=== PATIENT | female | born 1950 | race Caucasian/White ===

== ENCOUNTER → 2016-03-11 | Outpatient (REF) | payer MEDICARE, MEDICAID ==
[~2016-03-11] MED LIST: /BACL20TA PO; /FENO14TA PO; /OXYB10XLT PO; /PROM25SU; /PROM25SU IM; ACET-654 PO; ACET500C; ACET500C OR; ACET650S3 PO; ACET650S3 PR; ACTI300C PO; ADVI200T PO; ALB2.5NEB INH; ALBU17IN2 INH; AMBI10TA; AMIL25TA PO; ASCO500T PO; ATIV0.5T3 PO; ATIV1TAB7 PO; AUGM875T27 PO; BACL-67 PO; BACL10TA2 OR; BENA25CA PO; BETA0.3I SC; BISA10SU4 PR; BISAC5TA PO; CALC500T49; CALTCHW PO; CALTRATE OR; CALTTAB10 PO; CALTTAB11 PO; CATA0.1T PO; CEFD1CAP8 PO; CEFD300CAP PO; CEFT1INJ3 IM; CEFT2VL IM; CEFT500T PO; CIPR500T89 PO; CLAR5CHW OR; COLA50CA3 PO; CRAN400T3 PO; CRAN425C2 PO; CYMB1CAP PO; CYMB1CAP5 PO; DIPH50CA PO; DOCU8.6T PO; DULC10SU2 PR; DULC10SU9 PR; DULO30CA PO; ESTR1TAB3 PO; ESTRACE; FERR325T OR; FLAG500T PO; FLEEENE4 PR; FLEETS ENEMA PR; FLON0.05; FLON0.054; FLUT1SPR2; FLUTISP; FURO40TA2 PO; GABA-279 PO; GABA600T3 PO; GLIP5TAB15 PO; GLUC2.5T9 PO; IBUP-1114 PO; IBUP200C PO; IPRA2IN INH; KEFL500C7 PO; LASI40TA OR; LEVA500T PO; LEVO750T PO; LORA10TA2 PO; LORA24TA PO; LOSA50TA20 PO; LOVE1INJ SC; MAXA10TA14 PO; MAXA10TA17; MAXA10TA17 SL; MAXA5TAB10 PO; METF-414 PO; METF1000 PO; MIDAMOR OR; MILK2400 PO; MILKSUS OR; MILKSUS PO; MIRA3350 PO; MOM30SS PO; MULTIVIT OR; MULTLIQ7 PO; NEUR300C PO; NYST100024 TOP; OCUVTAB4 PO; OXYB5TA PO; OXYB5TAB OR; OXYC1TAB23 PO; OXYC5TAB2 PO; PERC5TAB6 PO; PERC5TAB8 OR; PHEN1SUP6 PR; PHEN1TAB80 PO; POTA20EL PO; POTA99TA; POTASSIUM OR; PRIL20CA; PRIL20CA OR; PRIL20CA PO; PROM25TA3 PR; PROV90AE INH; PROZ40CA OR; PYRI1TAB PO; REFRESH OU; REFROIN OU; ROCE1INJ4 IM; Robitussin OR; SENN8.6T5 OR; SIME1CAP PO; SIME40TA PO; SIME80TA PO; TRIC145T PO; TUMS500C OR; TYLE325T5 PO; TYLE325T5 PR; TYLE650T30 PO; VICO5TAB; VITA500C24 PO; VITA500T; VITMTA PO; [UNRECOGNIZED DRUG - CODE] TOP; [UNRECOGNIZED DRUG - OTHER] OR; [UNRECOGNIZED DRUG - OTHER] OR; [UNRECOGNIZED DRUG - OTHER] OR; [UNRECOGNIZED DRUG - OTHER] OR
[2016-03-11 10:20] LABS: ALBUMIN 3.3 GM/DL (3.2-5.2); ALBUMIN/GLOBULIN RATIO 0.89 (1.00-1.93); ALKALINE PHOSPHATASE 54 U/L (45-117); ALT/SGPT 18 U/L (12-78); AST/SGOT 11 U/L (15-37); BILIRUBIN,DIRECT < 0.1 MG/DL (0.0-0.2); BILIRUBIN,TOTAL 0.2 MG/DL (0.2-1.0)
== END | disposition home or self-care (01) ==
LOC: SKLAB5 08:37
PROVIDERS: ATTEND Family Medicine
DX: G35 Multiple sclerosis (principal)

== ENCOUNTER → 2016-03-27 | Outpatient (CLI) | payer MEDICARE, MEDICAID ==
[~2016-03-27] MED LIST changes: -PRIL20CA PO; +PRIL20CA9 PO
--- NOTE | 2016-03-27 22:40 | REPUSA ---
CLINICAL HISTORY: Back pain COMPARISON: No relevant comparison is available at the time of interpretation. L-SPINE XRAY, 4 views including obliques: Vertebral bodies: There is decreased height of the superior endplates of L1 and L2 which may represen t acute or nonacute compression deformities. Disc spaces: Mildly decreased height. Alignment: Normal lumbar lordosis without listhesis. Facets: Degenerative arthrosis at L4-5 and L5-S1. IMPRESSION: Loss of height of the L1 and L2 superior endplates which may represent acute or nonacute compression deformities. Consider evaluation with lumbar MRI for further differentiation.
== END | disposition home or self-care (01) ==
LOC: M ED 19:34
PROVIDERS: ATTEND Family Medicine
DX: M51.86 Other intervertebral disc disorders, lumbar region (principal); M51.87 Other intervertebral disc disorders, lumbosacral region

== ENCOUNTER 2016-03-31 09:11 | Outpatient (CLI) | payer MEDICARE, MEDICAID ==
[2016-03-31] MEDS ORDERED: IMMUNE GLOBULIN 10% 5 GM in APPROPRIATE DILUENT 1 EA IV ONE (10:15)
[2016-03-31] MEDS ORDERED: IMMUNE GLOBULIN 10% 10 GM in APPROPRIATE DILUENT 1 EA IV ONE (10:15)
[2016-03-31] MEDS ORDERED: IMMUNE GLOBULIN 10% 20 GM in APPROPRIATE DILUENT 1 EA IV ONE (10:15)
[2016-03-31] MEDS ORDERED: BACLOFEN 10 MG TAB PO ONE (12:00)
== END 2016-03-31 13:40 | disposition home or self-care (01) ==
LOC: M INFU 09:11
PROVIDERS: ATTEND Family Medicine
DX: G35 Multiple sclerosis (principal)
CPT/HCPCS: 96365; 96366; J1568

== ENCOUNTER → 2016-04-08 | Outpatient (REF) | payer MEDICARE, MEDICAID ==
[2016-04-08 07:51] LABS: BASO % 0.7 % (0.0-1.0); EOS # 0.1 K/mm3 (0.0-0.50); EOS % 1.7 % (0.0-3.0); LARGE UNSTAINED CELL # 0.1 K/mm3 (0.0-0.4); LARGE UNSTAINED CELL % 1.1 % (0.0-4.0); LYMPH # 2.6 K/mm3 (1.5-4.5); MEAN CORPUSCULAR HEMOGLOBIN 26.4 pg (27.0-33.0); MEAN CORPUSCULAR HGB CONC 32.6 g/dl (32.0-36.5); MEAN CORPUSCULAR VOLUME 80.9 fl (80.0-96.0); MONO # 0.4 K/mm3 (0.0-0.8); MONO % 5.1 % (0.0-5.0); NEUTROPHILS # 4.3 K/mm3 (1.8-7.7); NEUTROPHILS % 57.4 % (36.0-66.0); PLATELET COUNT, AUTOMATED 261 k/mm3 (150-450); RED CELL DISTRIBUTION WIDTH 13.2 % (11.5-14.5); WHITE BLOOD COUNT 7.5 K/mm3 (4.0-10.0)
[2016-04-08 08:08] LABS: ANION GAP 7 MEQ/L (8-16); BLOOD UREA NITROGEN 18 MG/DL (7-18); CALCIUM LEVEL 8.6 MG/DL (8.8-10.2); CARBON DIOXIDE LEVEL 32 MEQ/L (21-32); CHLORIDE LEVEL 101 MEQ/L (98-107); CREATININE FOR GFR 0.48 MG/DL (0.55-1.02); GLOMERULAR FILTRATION RATE > 60.0 (>45); GLUCOSE, FASTING 211 MG/DL (80-110); POTASSIUM SERUM 4.3 MEQ/L (3.5-5.1); SODIUM LEVEL 140 MEQ/L (136-145)
== END | disposition home or self-care (01) ==
LOC: SKLAB4 08:16
PROVIDERS: ATTEND Family Medicine
DX: G35 Multiple sclerosis (principal); D64.9 Anemia, unspecified; E11.9 Type 2 diabetes mellitus without complications

== ENCOUNTER 2016-05-05 09:36 | Outpatient (CLI) | payer MEDICARE, MEDICAID ==
[~2016-05-05 09:36] MED LIST changes: +IMMUNE GLOBULIN 10% 30 GM in APPROPRIATE DILUENT 1 EA IV ONE; +IMMUNE GLOBULIN 10% 5 GM in APPROPRIATE DILUENT 1 EA IV ONE
[2016-05-05] MEDS ORDERED: BACLOFEN 10 MG TAB PO ONE (12:00)
== END 2016-05-05 13:45 | disposition home or self-care (01) ==
LOC: M INFU 09:36
PROVIDERS: ATTEND Family Medicine
DX: G35 Multiple sclerosis (principal)
CPT/HCPCS: 96365; 96366; J1568

== ENCOUNTER 2016-06-02 10:23 | Inpatient (IN) | payer MEDICARE, MEDICAID ==
[2016-06-02] VITALS (28 sets, daily range): BP systolic 71–226; BP diastolic 41–98
[~2016-06-02] VITALS: Ht 167.6 cm; Wt 76.2 kg
[~2016-06-02 10:23] MED LIST changes: -IPRASOL4 INH; -METF-699 PO; -MORP-38 PO; -RANI15TA PO; -TUMS500C PO
[2016-06-02] MEDS ORDERED: MORP-38 PO (10:50)
[2016-06-02] MEDS ORDERED: RANI15TA PO (11:05)
[2016-06-02] MEDS ORDERED: DULC10SU2 PR (11:12)
[2016-06-02 12:29] LABS: YEAST LIKE CELL URINE AUTO SMALL
[2016-06-02 12:46] LABS: ABG BASE EXCESS 3.1 (-2.0-2.0); ABG HCO3 29.6 MEQ/L (22.0-26.0); ABG PARTIAL PRESSURE CO2 52.9 mmHg (35.0-45.0); ABG PARTIAL PRESSURE O2 81.4 mmHg (75.0-100.0); ABG STANDARD HCO3 27.1 MEQ/L (22.0-26.0); ABG TOTAL CO2 31.2 MEQ/L (23.0-31.0); ABG pH (ARTERIAL) 7.366 UNITS (7.350-7.450)
[2016-06-02] MEDS ORDERED: NS 2,340 ML in APPROPRIATE DILUENT 1 EA IV ONE (13:00)
[2016-06-02] MEDS ORDERED: CEFEPIME HCL 2 GM in D5W MINI-BAG PLUS 50 ML IV ONE (13:00)
[2016-06-02] MEDS ORDERED: ACETAMINOPHEN 650 MG SUPP PR ONE (13:45)
[2016-06-02] MEDS ORDERED: IPRASOL4 INH (14:09)
[2016-06-02] MEDS ORDERED: METF-699 PO (14:09)
[2016-06-02] MEDS ORDERED: TUMS500C PO (14:13)
[2016-06-02 14:17] LABS: INR 1.11
[2016-06-02 14:41] LABS: ALBUMIN 2.9 GM/DL (3.2-5.2); ALBUMIN/GLOBULIN RATIO 0.85 (1.00-1.93); BILIRUBIN,DIRECT 0.3 MG/DL (0.0-0.2); BILIRUBIN,TOTAL 0.5 MG/DL (0.2-1.0); TOTAL PROTEIN 6.3 GM/DL (6.4-8.2)
--- NOTE | 2016-06-02 14:42 | HPEPDOC ---
Medical History and Physical Date of Admission 06/02/16 History and Physical ATTENDING: Dr. Olivo PCP: Cm CC: "I'm sick". Fever and decreased LOC. HPI: 65yoF resident of [facility] with a past medical history significant for MS, neurogenic bladder, chronic incontinence, H/O recurrent UTI. Pt was transported from [facility] with aid reporting she had decreased LOC, fever this AM. CXR had been done this AM. No prior reported history in the chart of respiratory symptoms, DE JESUS, CP, SOB, cough, palpitations, abdominal pain, N/V/D. Pt wears adult diapers and has chronic incontinence. Pt has had indwelling jose in the past. Upon presentation to the hospital the patient was found to have sepsis, AMS, thus the hospitalist team was consulted. PMHx: MS neurogenic bladder chronic incontinence/recurrent UTI HTN NIDDM COPD- O2 dependent 2 LNC chronic pain related to MS HLD seasonal allergies GERD PSHX: tonsillectomy/adenoidectomy BTL hysterectomy cholecystectomy oral surgery SOCHX: Resides in: [facility] Marital Status: Tobacco use: quit 10 years ago ETOH: none Illicit Drugs: Denies Advanced directives: none FH Pt unable to provide. ROS: Pt unable to provide history at this time. PE: GEN: 65yoF, appears stated age. Lethargic but arouses to voice and states that she is "sick". She is oriented to person when calling her name. HEENT: Normocephalic, atraumatic. Pupils are equal, round, and reactive to light. Nose midline. Nasal turbinates without drainage. EACs both patent BL. TMs both visualized and youngblood with good cone of light, no bulging or erythema. No facial asymmetry. Dry mucous membranes. Dentition poor. Neck supple, trachea midline. No lymphadenopathy or thyromegaly appreciated. CHEST: Regular rate and rhythm, +S1, +S2. No JVD noted. LUNGS: Decreased BS but clear bilaterally. No wheezes, rales, or rhonchi. No accessory muscle use. ABD: Round, soft, possible mild distention, no TTP. +Bowel sounds present throughout. No rebound or guarding. No costovertebral angle tenderness. EXT: No lower extremity edema appreciated. B/L foot drop noted. SKIN: warm to touch. No rashes. NEURO: pt is lethargic but arousable. CXR: Cannot exclude right lower lobe atelectasis AXR Fecal stasis and constipation suggested. No evidence for bowel obstruction. Flu screen neg BC x 2 pending UC pending LA 4.5 A&P: 65yoF resident of [facility] with a past medical history significant for MS, neurogenic bladder, chronic incontinence, H/O recurrent UTI. Pt was transported from [facility] with aid reporting she had decreased LOC, fever this AM. CXR had been done this AM. The patient will be admitted to PCU for at least [address] Olivo 's service. Pt is discussed with Dr Morton. Lactic acidosis/Sepsis. Likely urinary source. UC/BC pending. LA 4.5, will repeat. Additional IV fluid bolus 1000ml ordered STAT, IV Cefepime 2gm Q12/IV Vanco. AMS likely secondary to infection. NATTY. S/P IVF bolus in ED. Cont with IVF, recheck labs in AM. Abdominal distention. CT A&P pending. MS. Baclofen/Gabapentinon hold. Chronic urinary incontinence/H/O recurrent UTI. Jose catheter placed. UC/BC pending. HTN. po meds on hold. Monitor BP. NIDDM. SSI. Metformin/Glipizide on hold. COPD. Nebs started. Chronic pain. Pt is on chronic pain meds as outpt (morphine) This is on hold temporarily and will need to be restarted to avoid withdrawal symptoms. HLD. po meds on hold. GERD. PO PPI on hold. DVT prophylaxis. Lovenox The patient is a DNR. 06/02/16 17:38 Addendum The patient went on to develop hypotension after nearly three liters of normal saline. SBP was 65, and patient was less responsive. I obtained informed consent for placement of central line to allow for better fluid and medication management. Dr. Roy placed triple lumen catheter. Patient is currently being transferred to ICU for CVP measurement and most likely levophed. I did discuss the case by phone with both listed healthcare proxies. Patient has sepsis due to urinary source probably related to obstructive uropathy on right. Broad spectrum antibiotics have been started. There is currently no urology coverage at this hospital, but the patient is not stable for transfer. She may benefit from a percutaneous procedure tomorrow. Juve Morton. Vital Signs Item Value Date Time Lactic Acid Level 4.5 MMOL/L *H 06/02/16 1134 Oxygen Delivery Method Nasal Cannula 06/02/16 1041 Oxygen Flow Rate 2 L/min 06/02/16 1041 Vital Signs Label Value Date Time Patient Temperature 103.2 degrees F 06/02/16 1334 Temperature Source Rectal 06/02/16 1334 Patient Temperature 99.4 degrees F 06/02/16 1028 Temperature Source Oral 06/02/16 1028 Pulse 98 06/02/16 1028 Respiratory Rate 20 bpm 06/02/16 1028 Blood Pressure Assessment 165/79 (107) 06/02/16 1028 Location Left Arm Source Automatic Cuff (NIBP) Position Supine Bedside Pulse Oximetry 94 % 06/02/16 1041 Laboratory Data Labs 24H Laboratory Tests 2 06/02/16 11:34: Lactic Acid Level 4.5*H, Urine Amorphous Sediment , Urine Appearance CLOUDYH, Urine Color YELLOW, Urine pH 5.0, Urine Specific [place] 1.012, Urine Protein NEGATIVE, Urine Glucose (UA) 2+H, Urine Ketones NEGATIVE, Urine Urobilinogen 0.2 , Urine Bilirubin NEGATIVE, Urine Leukocyte Esterase 3+H, Urine Bacteria (Auto) 3+H, Urine Blood 1+H, Urine Calcium Carbonate Cryst(Auto) , Urine Calcium Oxalate Cryst (Auto) , Urine Calcium Phosphate Tiny (Auto) , Urine Cellular Casts , Urine Cystine Crystals , Urine Granular Casts (Auto) , Urine Hyaline Casts (Auto) 0, Urine Leucine Crystals , Urine Mucus (Auto) SMALL, Urine Nitrite POSITIVE, Urine Oval Fat Bodies (Auto) , Urine RBC (Auto) 11H, Urine Renal Epithelial Cells , Urine Sperm (Auto) , Urine Squamous Epithelial Cells 1 , Urine Transitional Epithelial Cells , Urine Trichomonas (Auto) , Urine Triple Phosphate Cryst (Auto) , Urine Tyrosine Crystals , Urine Uric Acid Crystals ( Auto) , Urine WBC (Auto) 131H, Urine Waxy Casts (Auto) , Urine Yeast-Like Cells (Auto) SMALLH 06/02/16 12:34: Arterial Blood pH 7.366, Arterial Blood Partial Pressure CO2 52.9H, Arterial Blood Partial Pressure O2 81.4, Arterial Blood Total CO2 31.2H, Arterial Blood HCO3 29.6H, Arterial Blood Base Excess 3.1H, Arterial Blood Oxygen Saturation 96.0, Blood Gas Bicarbonate Standard 27.1H 06/02/16 13:57: Microbiology Microbiology 06/02/16 Blood Culture, Received Pending 06/02/16 Blood Culture, Received Pending 06/02/16 Urine Culture, Received Pending Home Medications Scheduled (Cranberry) 425 Mg Cap 425 MG PO DAILY (Preservision Areds) 1 Tab Tab 1 TAB PO BID Baclofen (Baclofen) 20 Mg Tab 20 MG PO QID Cefdinir (Cefdinir) 300 Mg Cap 300 MG PO BID Clonidine Hydrochloride (Catapres) 0.1 Mg Tab 0.1 MG PO QHS Docusate Sod/Senna (Docusate Sodium/Senna 8.6-50 mg) 1 Tab Tab 2 TAB PO DAILY Duloxetine Hcl (Cymbalta) 30 Mg Cap 30 MG PO BID Fenofibrate (Tricor) 145 Mg Tab 145 MG PO DAILY Fluticasone Propionate (Fluticasone Propionate 0.05%) 120 [place]/16 Gm Naspr 2 SPRAY NA DAILY PER NOSTRIL Gabapentin (Neurontin) 300 Mg Cap 300 MG PO BID Gabapentin (Gabapentin) 100 Mg Cap 500 MG PO ASDIRECTED TAKES AT MIDNIGHT Glipizide (Glipizide ER) 5 Mg Tab 2.5 MG PO DAILY Losartan Potassium (Losartan Potassium) 50 Mg Tab 25 MG PO DAILY Metformin Hydrochloride (Metformin HCl ER) 500 Mg Tab 500 MG PO BID Morphine Sulfate (Morphine Sulfate ER) 15 Mg Tab 15 MG PO BID Omeprazole (Prilosec) 20 Mg Cap 20 MG PO DAILY Oxybutynin Chloride (Oxybutynin Chloride) 5 Mg Tab 5 MG PO DAILY Ranitidine Hcl (Zantac) 150 Mg Tab 1 TAB PO DAILY Scheduled PRN Acetaminophen (Acetaminophen) 650 Mg Sup 650 MG DE Q4H PRN PRN PAIN OR DISCOMFORT Acetaminophen (Acetaminophen) 325 Mg Tab 650 MG PO Q4H PRN PRN PAIN / FEVER Albuterol Sulfate (Proventil Hfa) 167 Puff/6.7 Gm Aers 2 PUFFS INH Q4H PRN PRN SHORTNESS OF BREATH Albuterol/Ipratropium (Ipratropium [place]sa[place]/Albut 0.5-2.5 (3) mg/3Ml) 1 Abraham Abraham 1 ABRAHAM INH PRN SHORTNESS OF BREATH Bisacodyl (Dulcolax) 10 Mg Sup 10 MG DE DAILYPRN PRN PRN CONSTIPATION Calcium Carbonate (Tums) 500 Mg Chw 1,000 MG PO Q4H PRN PRN INDIGESTION Ibuprofen (Ibuprofen) 400 Mg Tab 400 MG PO Q6H PRN PRN PAIN / FEVER Lorazepam (Ativan) 1 Mg Tab 1 MG PO QHS PRN PRN INSOMNIA Milk Of Magnesia (Milk of Magnesia) 1,200 Mg/15 Ml Eleanor 30 ML PO DAILY PRN PRN CONSTIPATION Polyethylene Glycol (Miralax) 1 Pow Pow 17 GM PO DAILY PRN PRN CONSTIPATION Promethazine HCl (Phenergan) 25 Mg Sup 25 MG DE Q4H PRN PRN NAUSEA OR VOMITING Sodium Phosphate/Biphosphate (Fleet Enema 7-19 gm/118Ml) 1 Ann Marie Ann Marie 1 EA DE DAILY PRN PRN CONSTIPATION Allergies Coded Allergies: Penicillins (Verified Allergy, Intermediate, RASH, 10/30/15) Bacitracin (Verified Allergy, Unknown, 08/20/13) Erythromycin (Verified Allergy, Unknown, 06/06/12) Polymyxin B (Verified Allergy, Unknown, 08/20/13) Sulfa Drugs (Verified Allergy, Unknown, 06/06/12) Fany Jo Jun 02, 2016 14:42 JUVE MORTON MD Jun 02, 2016 17:50
[2016-06-02] MEDS ORDERED: NS 1,000 ML IV STA (14:51)
[2016-06-02] MEDS ORDERED: IPRATROPIUM 0.5MG/ALBUTEROL 2.5MG INH SOL UD 3ML (DUONEB)(J7620) NEB PRN (15:00)
[2016-06-02] MEDS ORDERED: DEXTROSE 50% 50 ML SYRINGE IV PRN (15:00)
[2016-06-02] MEDS ORDERED: ACETAMINOPHEN TAB 650MG DOSE (2X325MG) PO PRN (15:00)
[2016-06-02] MEDS ORDERED: GLUCOSE 4 GM CHEW TABLET PO PRN (15:00)
[2016-06-02] MEDS ORDERED: GLUCAGON FOR INJ 1 MG VIAL (J1610) SC PRN (15:00)
--- NOTE | 2016-06-02 15:50 | REP ---
Clinical: Abdominal pain. Findings: There is edematous enlargement of the right kidney with perinephric stranding and hydronephrosis with a 15 mm calculus obstructing the ureteropelvic junction as well as multiple nonobstructing right intrarenal calculi. The right ureter distal to the obstructing calculus is normal in caliber. The left kidney demonstrates chronic cortical scarring and atrophic changes without hydroureteronephrosis or nephrolithiasis. The left ureter is normal. The bladder is collapsed with Robb catheter in place. Lung bases demonstrate right lower lobe atelectasis. Hepatosplenomegaly is noted. The pancreas and bilateral adrenal glands are normal. The patient is status post cholecystectomy. The enteric system is without obvious obstruction or acute inflammatory process. Stranding adjacent to the ascending colon in the right infrahepatic space is nonspecific and may be related to the above mentioned acute obstructive uropathy as the colon itself appears relatively normal. Pelvis demonstrates normal sigmoid colon and Robb catheter in collapsed bladder along with prior hysterectomy. No ascites. No free air. No significant adenopathy. Atherosclerotic changes of the vasculature and degenerative changes the musculoskeletal structures noted. Impression: 1. Moderate acute right-sided obstructive uropathy with a 15 mm calculus obstructing the ureteropelvic junction. Nonobstructing right intrarenal calculi also identified. Left kidney is relatively unremarkable. 2. Right lower lobe atelectasis. 3. Stranding in the right pericolic gutter adjacent to the hepatic flexure is likely secondary to the above acute obstructive uropathy and less likely related to focal acute colitis. Signed by Freddy Lowe MD 06/02/2016 03:42 P
[2016-06-02] MEDS ORDERED: VANCOMYCIN HCL 1,000 MG, VIAL MATE ADAPTER 1 EACH in D5W 250 ML IV ONE (16:00)
[2016-06-02] MEDS ORDERED: NOREPINEPHRINE BITARTRATE 8 MG in D5W 500 ML IV SCH (17:45)
--- NOTE | 2016-06-02 18:01 | REP ---
Clinical: Central line placement. Comparison: 06/02/2016 at 09:14 a.m.. Findings: Right IJ line with tip in the SVC. Right lower lobe atelectasis cannot be excluded. No pneumothorax. Impression: Right IJ line with tip in the SVC. Right lower lobe atelectasis cannot be excluded. Signed by Freddy Lowe MD 06/02/2016 05:53 P
[2016-06-02] MEDS ORDERED: ONDANSETRON 4MG/2ML VIAL (J2405) As Ordered ONE (18:26)
[2016-06-02] MEDS: HumaLOG INSULIN (NovoLOG) PER UNIT SC SCH (18:34)
[2016-06-02] MEDS: NS 1,000 ML IV SCH (18:38)
[2016-06-02] MEDS ORDERED: NOREPINEPHRINE 4 MG/4 ML AMP As Ordered ONE (18:51)
[2016-06-02] MEDS: ONDANSETRON 4MG/2ML VIAL (J2405) IV PRN ×2 (18:55→23:15)
--- NOTE | 2016-06-02 19:16 | RO ---
DATE OF PROCEDURE: 06/02/2016 PREPROCEDURE DIAGNOSIS: Hypotension. POSTPROCEDURE DIAGNOSIS: Hypotension. OPERATIVE PROCEDURE: Right IJ triple lumen central line. SURGEON: Jeannette oRy MD ARTIST'S REPRESENTATIVE: Burton Morton MD SEDATION: None ANESTHETIC: 1% local lidocaine. VENTILATION: The patient was placed on 100% nonrebreather temporarily for the duration of the procedure. ESTIMATED BLOOD LOSS: 10 mL COMPLICATIONS: None. DESCRIPTION OF PROCEDURE: The patient was placed in supine position. Site was cleaned with Chloraprep. The patient was covered in the usual manner sterilely. 1% local lidocaine was drawn. 1% local lidocaine was given with ultrasound guidance locating right internal jugular. Subsequently, needle was inserted with ultrasound guidance. Flush of blood was obtained. Guidewire was placed through the needle and the needle was removed. Site was dilated with a dilator. Prior to dilation, wire position was confirmed again with ultrasound. Subsequently, triple lumen central line was placed with Seldinger technique over a guidewire. The guidewire was removed and cap was placed. All three ports were flushed with normal saline. A triple lumen central line was secured with stitches and clamps. Dressing was placed. X-ray was ordered for confirmation. The patient tolerated the procedure with no complications.
--- NOTE | 2016-06-02 19:40 | PHACANCOPD ---
PHARMACY VANCOMYCIN DOSING Pt Demographics Demographics Patient Age:65 , Weight:78.500 , Gender: female Adjusted Body Weight Date: 06/02/16, Adjusted Body Weight: Kg Events Past 24 Hours Events Past 24 Hours: YES: Change in CrCl, Elevation in WBC, Pending Procedures (interventional radiology), NO: Dialysis, Diuretic Therapy, Fever, Other, Pending Diagnostics Vancomycin Vancomycin indication: sepsis Vancomycin Target Ranges: 15-20 mcg/ml Vancomycin Load Y/N: Yes Load Dose Date Time Vancomycin Load Dose: 2000mg Date: 06/02/16 Time: 1g @ 19:00, 21:00 Vancomycin Dose Date: 06/02/16. Current Vancomycin Dose: [1g IV q12h @21] Intermittent Dosing?: No Labs Labs Item Value Date Time C-Reactive Protein, Quantitative 16.10 MG/DL H 06/02/16 1357 Creatinine 1.14 MG/DL H 06/02/16 0725 White Blood Count 14.8 K/mm3 H 06/02/16 0725 Lactic Acid Level 4.5 MMOL/L *H 06/02/16 1134 Micro Microbiology 06/02/16 Blood Culture, Received Pending 06/02/16 Blood Culture, Received Pending 06/02/16 Urine Culture, Received Pending Creatinine Clearance Date:06/02/16. Creatinine Clearance: [50 ml/min]. Assessment and Plan Maintaining Current Dose?: Yes Reason for dose change: No Dose Change Pharmacist Note Pharmacist Note Date: 06/02/16. Pharmacist note: Pt is an [facility] resident admitted for sepsis, she has been started on cefepime and vancomycin. UTI is the presumed origin of sepsis, past urine cultures notable for E. faecalis ([place] = 1) and E. coli. No Hx of MRSA. Her SCr is currently elevated, baseline ~0.5 mg/dl. Pt was on vancomycin here in 2013 at 1g IV q8h with a SCr of ~0.7. Due to her decompensated state, I have started with a 2g vancomycin load followed by 1g IV q12h. Blood and urine cultures are currently pending. We will monitor renal function and order a trough as necessary. Hernan Blankenship Pharm.D. Jun 02, 2016 19:40
[2016-06-02] MEDS: IPRATROPIUM 0.5MG/ALBUTEROL 2.5MG INH SOL UD 3ML (DUONEB)(J7620) NEB SCH (20:00)
[2016-06-02] MEDS ORDERED: HumaLOG INSULIN (NovoLOG) PER UNIT SC SCH (21:00)
[2016-06-02] MEDS ORDERED: LORazepam 2 MG/ML VIAL (J2060) IV STA (22:00)
[2016-06-02] MEDS: VANCOMYCIN HCL 1,000 MG, VIAL MATE ADAPTER 1 EACH in D5W 250 ML IV SCH (22:07)
[2016-06-02] MEDS ORDERED: LORazepam 2 MG/ML VIAL (J2060) IV PRN (23:45)
[2016-06-03] VITALS (52 sets, daily range): BP systolic 82–177; BP diastolic 43–79
[2016-06-03] MEDS: IPRATROPIUM 0.5MG/ALBUTEROL 2.5MG INH SOL UD 3ML (DUONEB)(J7620) NEB SCH ×4 (01:19→19:29)
[2016-06-03] MEDS: CEFEPIME HCL 2 GM in D5W MINI-BAG PLUS 50 ML IV SCH ×2 (01:55→13:30)
[2016-06-03 05:25] LABS: ABG HCO3 26.3 MEQ/L (22.0-26.0); ABG PARTIAL PRESSURE CO2 52.8 mmHg (35.0-45.0); ABG PARTIAL PRESSURE O2 87.1 mmHg (75.0-100.0); ABG TOTAL CO2 27.6 MEQ/L (23.0-31.0)
[2016-06-03 05:26] LABS: ABG STANDARD HCO3 27.6 MEQ/L (22.0-26.0)
[2016-06-03 05:45] LABS: MEAN CORPUSCULAR HEMOGLOBIN 26.1 pg (27.0-33.0); MEAN CORPUSCULAR VOLUME 81.5 fl (80.0-96.0); RED CELL DISTRIBUTION WIDTH 14.4 % (11.5-14.5); WHITE BLOOD COUNT 19.3 K/mm3 (4.0-10.0)
[2016-06-03] MEDS: ACETAMINOPHEN 650 MG SUPP PR PRN ×3 (05:51→23:27)
[2016-06-03 05:56] LABS: CALCIUM LEVEL 8.2 MG/DL (8.8-10.2); CREATININE FOR GFR 1.14 MG/DL (0.55-1.02); GLOMERULAR FILTRATION RATE 51.2 (>45); POTASSIUM SERUM 4.3 MEQ/L (3.5-5.1)
--- NOTE | 2016-06-03 06:30 | REPUSA ---
CLINICAL HISTORY: Headache. TECHNIQUE: Multiple axial CT images were obtained through the brain without IV contrast material. COMMENTS: There is normal configuration of sella turcica. There are no intra or extra-axial collections. There is no mass effect or midline shift. There is no evidence of hematoma formation. No hydrocephalus is p resent. The ventricles are symmetrical. No abnormal calcifications are present. There is diffuse age-appropriate cerebellar and cerebral atrophy with proportionally dilated ventricl es and cortical sulci. There are bilateral periventricular and subcortical white matter hypolucencies compatible with mild c hronic microvascular disease. Otherwise, no significant focal abnormalities are seen either in the posterior fossa or supratentoria l compartment. Chronic mucosal inflammatory changes of the paranasal sinuses. Air-fluid level in the left sphenoid sinus. IMPRESSION: 1. Age-appropriate cerebellar and cerebral atrophy. 2. Mild chronic microvascular disease. 3. No evidence of acute intracranial pathology. Sinusitis. Thank you for your kind referral of this patient.
--- NOTE | 2016-06-03 07:23 | ECGEPIP ---
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
[2016-06-03] MEDS: HumaLOG INSULIN (NovoLOG) PER UNIT SC SCH ×4 (07:48→23:27)
[2016-06-03] MEDS ORDERED: ENOXAPARIN 40 MG/0.4 ML SYRINGE (J1650) SC SCH (09:00)
--- NOTE | 2016-06-03 09:00 | PHACANCOPD ---
PHARMACY VANCOMYCIN DOSING Pt Demographics Demographics Patient Age:65 , Weight:78.000 , Gender: female Adjusted Body Weight Date: 06/02/16, Adjusted Body Weight: Kg Vancomycin Vancomycin indication: sepsis Vancomycin Target Ranges: 15-20 mcg/ml Vancomycin Load Y/N: Yes Load Dose Date Time Vancomycin Load Dose: 2000mg Date: 06/02/16 Time: 1g @ 19:00, 21:00 Vancomycin Dose Date: 06/02/16. Current Vancomycin Dose: [1g IV q12h @21] Intermittent Dosing?: No Labs Micro Microbiology 06/02/16 Blood Culture, Received Pending 06/02/16 Blood Culture - Preliminary, Resulted 06/02/16 Respiratory Virus Panel (PCR) ([place]) - Final, Complete 06/02/16 Urine Culture, Received Pending Creatinine Clearance Date:06/02/16. Creatinine Clearance: [50 ml/min]. Assessment and Plan Maintaining Current Dose?: Yes Reason for dose change: No Dose Change Pharmacist Note Pharmacist Note 06/03/16: Scr today remains at 1.14, and WBC remains elevated. All cultures are still pending. I have scheduled a trough to be drawn 06/04/16 @0800, prior to the 4th dose. We will continue to monitor and make adjustments accordingly. Date: 06/02/16. Pharmacist note: Pt is an [facility] resident admitted for sepsis, she has been started on cefepime and vancomycin. UTI is the presumed origin of sepsis, past urine cultures notable for E. faecalis ([place] = 1) and E. coli. No Hx of MRSA. Her SCr is currently elevated, baseline ~0.5 mg/dl. Pt was on vancomycin here in 2013 at 1g IV q8h with a SCr of ~0.7. Due to her decompensated state, I have started with a 2g vancomycin load followed by 1g IV q12h. Blood and urine cultures are currently pending. We will monitor renal function and order a trough as necessary. MARILYN CHRISTIANSON PHARMACY Jun 03, 2016 09:00
--- NOTE | 2016-06-03 09:37 | IPN ---
DATE: 06/03/2016 Samia is seen in the intensive care unit (ICU). The case has been discussed extensively with Dr. Morton. Appreciate his assistance with the admission. She was admitted with septic shock, probable urinary source, hypotensive requiring pressors overnight and aggressive IV hydration. Her blood pressure recovered overnight and actually spiked at one point. She had some altered mental status so we sent her down for a stat CT of the brain that did not show any bleed or other acute abnormality. The etiology of sepsis is probably obstructive uropathy. She has a right sided obstructive uropathy with hydronephrosis from a 1.5 cm calculus obstructive the ureteropelvic junction (UPJ). Unfortunately there is no urologist available for the next two days. The patient is going to interventional radiology later today for a nephrostomy tube. Dr. Alvarenga has already seen the patient and spoken with the family. The patient feels better than yesterday, but still feels gravely ill. Denies shortness of breath. PHYSICAL EXAMINATION: 98 degrees, 147/68, pulse 105, 98% oxygen saturation on room air. GENERAL APPEARANCE: She is lying in bed, looks septic, alert and conversant. Recognized me from previous hospitalizations. No jugular venous distention (JVD). LUNGS: Decreased breath sounds, but clear. HEART: Regular rate and rhythm without murmur. ABDOMEN: Soft, tender right side. She has mild right CVA tenderness. Trace peripheral edema. LABORATORIES: Sodium 140, potassium 4.3, BUN 23, creatinine 1.4, glucose 360. White count 19.3, hemoglobin 12.9, platelets 266. ABG this morning 7.31/52/87. Blood sugars have been in the 200s. Initial blood culture is positive for gram negative rods. Review of recent medical history shows that she has had Enterococcus isolate from her urine on two occasions last year and also had a E. coli Klebsiella as well. IMPRESSION: 1. Septic shock from presumed urinary source, probably gram negative septicemia. Plan: She is off her pressors. Continue her IV hydration. She is on cefepime for gram negative coverage and vancomycin for gram positive coverage. I will continue the vancomycin as she has had Enterococcus in the last year and we will keep the vancomycin going until the final culture results are back. Clinical pharmacology is assisting with vancomycin dosing. 2. Obstructive uropathy. Unfortunately, no urology is available for the next two days. Interventional radiology will be addressing the obstruction with a percutaneous nephrostomy later today. 3. MS. From review of her medications, I do not see where she is on any immunosuppressant drugs. 4. History of hypertension. Antihypertensives have been held. She was on clonidine. She could get a rebound hypertension now that her volume status has improved. We will have to keep our eye out for this. She was taking clonidine and losartan as an outpatient. 5. Type 2 diabetes. Her metformin has been held in the face of the sepsis. She was on metformin and glipizide as an outpatient. 6. History of depression. She was on Cymbalta 30 mg twice a day, also taking gabapentin 300 mg twice a day with 100 mg at might. She is at risk of withdrawal from both of these medications. 7. History of chronic pain syndrome. She takes morphine ER 15 mg twice a day at home. This has been held in face of the hypotension. She is at risk of withdrawal from this as well. We need to keep our eye out for abstinence syndrome. Her prognosis is poor, but she has responded to additional measures. She has a DO NOT RESUSCITATE/DO NOT INTUBATE status.
[2016-06-03] MEDS: NS 1,000 ML IV SCH ×2 (09:39→17:58)
[2016-06-03] MEDS: VANCOMYCIN HCL 1,000 MG, VIAL MATE ADAPTER 1 EACH in D5W 250 ML IV SCH ×2 (09:39→20:24)
[2016-06-03] MEDS ORDERED: ISOVUE-300 61% 50ML VIAL (Q9967) As Ordered ONE (11:29)
[2016-06-03] MEDS ORDERED: MIDAZOLAM INJ 2 MG/2 ML VIAL (J2250) As Ordered ONE (11:37)
[2016-06-03] MEDS ORDERED: fentaNYL 100 MCG/2 ML INJECTION (J3010) As Ordered ONE (11:38)
[2016-06-03] MEDS ORDERED: KETOROLAC 60 MG/2 ML VIAL (J1885) As Ordered ONE (12:31)
--- NOTE | 2016-06-03 16:07 | REPKIM ---
CLINICAL HISTORY: Patient with neurogenic bladder, diabetes, kidney stones presents with urosepsis and right sided hydronephrosis secondary to obstructing UPJ stone. The referring service has asked a nephrostomy catheter placement on the right. PROCEDURE: 1. Ultrasound of the right kidney 2. Nephrostomy urinary diversion tube placement INTERVENTIONALIST: Kristel Alvarenga MD SEDATION: Sedation and analgesia was provided by the Anesthesiology Dept. EBL: 2 mL CONTRAST: 3 mL Isovue 300 FLUORO TIME: 1.8 minutes DEVICE USED: Nephrostomy Resolve catheter 8.5F Lot#[id number] Description of procedure: The risks, benefits, and alternatives of the procedure were discussed with the patients son and informed phone consent was obtained and witnessed. The patient was brought to the interventional radiology suite where a timeout procedure was performed. The patient was placed in the prone position. The right ada was prepped and draped in the usual sterile fashion. Ultrasound of the right kidney showed moderate hydronephrosis and kidney stones. Using ultrasound and fluoroscopic guidance, a 21-gauge Accustick needle was percutaneously introduced into the lower pole posterior calyx. Using this access, an Accustick catheter was introduced with its tip positioned in the renal pelvis. Initial aspirate revealed purulent urine c/w pyuria. A sample of urine sent for c/s. An 8.5-Burkinan nephrostomy catheter was introduced over the guidewire. The guidewire was withdrawn and the distal end of the catheter was formed in the renal pelvis. Minimum amount of contrast was gently hand injected confirming satisfactory catheter positioning. The nephrostomy drainage catheter was then secured to the skin with 2-0 suture and covered with a sterile dressing. The nephrostomy urinary diversion catheter was flushed and connected to a gravity bag. The patient tolerated the procedure well with no immediate complications. This procedure was performed using ultrasound and fluoroscopy. Dr. Alvarenga was present. Continue antibiotics and supportive care. IMPRESSION: 1. Urosepsis, diabetes, neurogenic bladder. Hydronephrosis secondary to obstructing UPJ stone on the right. 2. Successful placement of 8.5-Burkinan percutaneous nephrostomy urinary diversion tube on the right. A sample of urine sent for c/s. cc: MD Mars Pierre MD [facility]
[2016-06-04] VITALS (19 sets, daily range): BP systolic 112–157; BP diastolic 56–84
[2016-06-04] MEDS: CEFEPIME HCL 2 GM in D5W MINI-BAG PLUS 50 ML IV SCH ×2 (01:13→14:17)
[2016-06-04] MEDS: IPRATROPIUM 0.5MG/ALBUTEROL 2.5MG INH SOL UD 3ML (DUONEB)(J7620) NEB SCH ×4 (01:40→19:41)
[2016-06-04] MEDS: HumaLOG INSULIN (NovoLOG) PER UNIT SC SCH ×4 (05:51→23:13)
[2016-06-04 06:07] LABS: MEAN CORPUSCULAR HEMOGLOBIN 26.1 pg (27.0-33.0); MEAN CORPUSCULAR HGB CONC 32.9 g/dl (32.0-36.5); MEAN CORPUSCULAR VOLUME 79.4 fl (80.0-96.0); RED CELL DISTRIBUTION WIDTH 14.1 % (11.5-14.5); WHITE BLOOD COUNT 7.4 K/mm3 (4.0-10.0)
[2016-06-04 06:21] LABS: ANION GAP 7 MEQ/L (8-16); BLOOD UREA NITROGEN 11 MG/DL (7-18); CALCIUM LEVEL 8.5 MG/DL (8.8-10.2); CARBON DIOXIDE LEVEL 30 MEQ/L (21-32); CHLORIDE LEVEL 104 MEQ/L (98-107); CREATININE FOR GFR 0.47 MG/DL (0.55-1.02); GLUCOSE, FASTING 206 MG/DL (80-110); POTASSIUM SERUM 3.3 MEQ/L (3.5-5.1); SODIUM LEVEL 141 MEQ/L (136-145)
[2016-06-04 06:25] LABS: GLOMERULAR FILTRATION RATE > 60.0 (>45)
[2016-06-04] MEDS: VANCOMYCIN HCL 1,000 MG, VIAL MATE ADAPTER 1 EACH in D5W 250 ML IV SCH ×2 (08:53→18:22)
[2016-06-04] MEDS: NS 1,000 ML IV SCH (08:53)
--- NOTE | 2016-06-04 08:57 | PHACANCOPD ---
PHARMACY VANCOMYCIN DOSING Pt Demographics Demographics Patient Age:65 , Weight:77.200 , Gender: female Adjusted Body Weight Date: 06/02/16, Adjusted Body Weight: [78] Kg Events Past 24 Hours Events Past 24 Hours: YES: Change in CrCl Vancomycin Vancomycin indication: sepsis Vancomycin Target Ranges: 15-20 mcg/ml Vancomycin Load Y/N: Yes Load Dose Date Time Vancomycin Load Dose: 2000mg Date: 06/02/16 Time: 1g @ 19:00, 21:00 Vancomycin Dose Date: 06/04/16. Current Vancomycin Dose: [1G IV Q8H @17] Date: 06/02/16. Current Vancomycin Dose: [1g IV q12h @21] Intermittent Dosing?: No Labs Labs Item Value Date Time White Blood Count 19.3 K/mm3 H 06/03/16 0525 White Blood Count 7.4 K/mm3 06/04/16 0550 Creatinine 1.14 MG/DL H 06/03/16 0525 Creatinine 0.47 MG/DL L # 06/04/16 0550 Micro Microbiology 06/02/16 Blood Culture - Preliminary, Resulted No growth after 24 hours . All specim... 06/02/16 Blood Culture - Preliminary, Resulted 06/02/16 Respiratory Virus Panel (PCR) ([facility]) - Final, Complete 06/03/16 Urine Culture, Received Pending 06/03/16 Anaerobic Culture, Received Pending 06/02/16 Urine Culture, Received Pending Creatinine Clearance Date:06/04/16. Creatinine Clearance: [122.4ML/MIN]. Date:06/02/16. Creatinine Clearance: [50 ml/min]. Assessment and Plan Maintaining Current Dose?: No Reason for dose change: Change in serum Cr Pharmacist Note Pharmacist Note Date: 06/04/16. Pharmacist note: SCR today has increased to near base line of 122.4ml/min, trough returned at 12.6mcg/ml, cultures are still pending. I have changed the dose to 1g q8h starting at 17:00 and scheduled a trough 06/05 for 16: 00. We will continue to monitor and adjust dose as needed. 06/03/16: Scr today remains at 1.14, and WBC remains elevated. All cultures are still pending. I have scheduled a trough to be drawn 06/04/16 @0800, prior to the 4th dose. We will continue to monitor and make adjustments accordingly. Date: 06/02/16. Pharmacist note: Pt is an [facility] resident admitted for sepsis, she has been started on cefepime and vancomycin. UTI is the presumed origin of sepsis, past urine cultures notable for E. faecalis ([facility] = 1) and E. coli. No Hx of MRSA. Her SCr is currently elevated, baseline ~0.5 mg/dl. Pt was on vancomycin here in 2013 at 1g IV q8h with a SCr of ~0.7. Due to her decompensated state, I have started with a 2g vancomycin load followed by 1g IV q12h. Blood and urine cultures are currently pending. We will monitor renal function and order a trough as necessary. LEIDY SOLORIO [facility] Jun 04, 2016 08:57
[2016-06-04] MEDS ORDERED: POTASSIUM CHLORIDE 10 MEQ SR TABLET PO ONE (10:15)
[2016-06-04] MEDS: BACLOFEN 10 MG TAB PO SCH (19:36)
[2016-06-04] MEDS: ONDANSETRON 4MG/2ML VIAL (J2405) IV PRN (20:44)
[2016-06-05] VITALS (7 sets, daily range): BP systolic 131–161; BP diastolic 60–82
[2016-06-05] MEDS: VANCOMYCIN HCL 1,000 MG, VIAL MATE ADAPTER 1 EACH in D5W 250 ML IV SCH (01:20)
[2016-06-05] MEDS: CEFEPIME HCL 2 GM in D5W MINI-BAG PLUS 50 ML IV SCH ×2 (02:00→13:52)
[2016-06-05] MEDS: IPRATROPIUM 0.5MG/ALBUTEROL 2.5MG INH SOL UD 3ML (DUONEB)(J7620) NEB SCH ×4 (02:00→20:08)
[2016-06-05] MEDS: HumaLOG INSULIN (NovoLOG) PER UNIT SC SCH ×3 (05:44→17:27)
[2016-06-05 05:58] LABS: MEAN CORPUSCULAR HEMOGLOBIN 26.1 pg (27.0-33.0); MEAN CORPUSCULAR HGB CONC 33.1 g/dl (32.0-36.5); MEAN CORPUSCULAR VOLUME 78.7 fl (80.0-96.0); RED CELL DISTRIBUTION WIDTH 13.6 % (11.5-14.5); WHITE BLOOD COUNT 5.8 K/mm3 (4.0-10.0)
[2016-06-05 06:04] LABS: ANION GAP 7 MEQ/L (8-16); BLOOD UREA NITROGEN 6 MG/DL (7-18); CALCIUM LEVEL 8.8 MG/DL (8.8-10.2); CARBON DIOXIDE LEVEL 31 MEQ/L (21-32); CHLORIDE LEVEL 102 MEQ/L (98-107); CREATININE FOR GFR 0.42 MG/DL (0.55-1.02); GLOMERULAR FILTRATION RATE > 60.0 (>45); GLUCOSE, FASTING 214 MG/DL (80-110); POTASSIUM SERUM 3.4 MEQ/L (3.5-5.1); SODIUM LEVEL 140 MEQ/L (136-145)
[2016-06-05] MEDS ORDERED: SODIUM CHLORIDE 0.9% INJ 10 ML SYR IV PRN (07:15)
[2016-06-05] MEDS: BACLOFEN 10 MG TAB PO SCH ×4 (08:48→20:19)
[2016-06-05] MEDS: ONDANSETRON 4MG/2ML VIAL (J2405) IV PRN (09:18)
--- NOTE | 2016-06-05 13:22 | IPNPDOC ---
Subjective Date Seen The patient was seen on 06/05/16. Subjective Chief Complaint/HPI The patient is a 65-year-old female admitted with a reason for visit of Sepsis. Events since last encounter Ms. Troy denies any complaints today and wants to be discharged back home to [facility]. General: Denies: Chills Constitutional: Denies: Fever ENT: Denies: Head Aches Pulmonary: Denies: Cough, Dyspnea Cardiovascular: Denies: Chest Pain, Palpitations Gastrointestinal: Denies: Abdominal Pain, Nausea, Vomiting Genitourinary: Denies: Dysuria Objective Physical Examination General Exam: Positive: Alert, No Acute Distress Eye Exam: Positive: Conjunctiva & lids normal ENT Exam: Positive: Mucous membr. moist/pink Chest Exam: Positive: Clear to auscultation Heart Exam: Positive: Normal S1, Normal S2, Rate Normal, Negative: Murmurs Abdomen Exam: Positive: Normal bowel sounds, Soft, Negative: Tenderness Extremity Exam: Positive: Edema (trace foot and ankle edema bilaterally) Neuro Exam: Positive: Normal Speech Psych Exam: Positive: Mental status NL, Mood NL, Oriented x 3 Assessment /Plan Problems (1) Sepsis secondary to UTI Status: Acute Response to Treatment: Stable, Improving Problem Text: Ms. Troy has been afebrile and has maintained good BP off of pressors. She denies any complaints today. - Blood culture grew E. coli, sensitivities pending; urine culture pending - Currently on Cefepime IV; once sensitivities are resulted, will change to PO antibiotics - Will transfer to Med/Surg floor - Will plan to discharge to [facility] on Tuesday (2) Obstructive uropathy Status: Acute Response to Treatment: Stable Problem Text: Patient presented with right-sided hydronephrosis due to obstructing UJP stone; Dr. Alvarenga placed a right nephrostomy tube on 06/03/16. I d/ w Dr. Barraza (urology on-call doctor) who states that patient should be discharged with nephrostomy tube and follow-up with Urology as an outpatient. (3) Multiple sclerosis Status: Chronic Response to Treatment: Stable Problem Text: Continue home baclofen. (4) Chronic pain syndrome Status: Chronic Response to Treatment: Stable Problem Text: Patient is on morphine at home; this has been held during her hospitalization and she has no complaints of pain today. (5) HTN (hypertension) Status: Chronic Response to Treatment: Stable Problem Text: Losartan and clonidine have been held due to initial hypotension requiring pressors due to sepsis; will restart if BP becomes elevated. (6) Diabetes mellitus Status: Chronic Problem Text: Continue SSI and carb consistent diet; will resume home metformin upon discharge. (7) Metabolic encephalopathy Status: Resolved Response to Treatment: Stable Problem Text: Due to UTI and sepsis. Plan/VTE VTE Prophylaxis Ordered?: Yes Plan/Urinary Catheter Reason for insertion/continuin: Other-document below (chronic, neurogenic bladder) VS, I&O, 24H, Fishbone Vital Signs/I&O Vital Signs Date Time Temp Pulse Resp B/P Pulse Ox O2 Delivery O2 Flow Rate FiO2 06/05/16 11:15 Nasal Cannula 1.0 06/05/16 11:11 99.2 89 20 131/60 95 I&O- Last 24 Hours up to 6 AM 06/05/16 06:00 Intake Total 1900 ml Output Total 2370 ml Balance -470 ml Laboratory Data 24H LABS Laboratory Tests 2 06/04/16 23:08: Bedside Glucose (Misc Panel) 209H 06/05/16 05:32: Anion Gap 7L, Blood Urea Nitrogen 6L, Creatinine 0.42L, Sodium Level 140, Potassium Level 3.4L, Chloride Level 102, Carbon Dioxide Level 31, Calcium Level 8.8, Glomerular Filtration Rate > 60.0 06/05/16 05:34: Bedside Glucose (Misc Panel) 173H 06/05/16 12:05: Bedside Glucose (Misc Panel) 199H CBC/BMP Laboratory Tests 06/05/16 05:32 Calcium Level 8.8, Red Blood Count 4.43, Mean Corpuscular Volume 78.7 L, Mean Corpuscular Hemoglobin 26.1 L, Mean Corpuscular Hemoglobin Concent 33.1, Red Cell Distribution Width 13.6 Microbiology Microbiology 06/02/16 Blood Culture - Preliminary, Resulted No Growth after 72 hours. All specime... 06/02/16 Blood Culture - Preliminary, Resulted Escherichia Coli 06/02/16 Respiratory Virus Panel (PCR) ([facility]) - Final, Complete 06/03/16 Urine Culture, Received Pending 06/03/16 Anaerobic Culture, Received Pending 06/02/16 Urine Culture, Received Pending RIC MOODY MD Jun 05, 2016 13:14
[2016-06-05] MEDS: SODIUM CHLORIDE 0.9% INJ 10 ML SYR IV SCH ×2 (13:52→21:54)
[2016-06-05] MEDS: LORazepam 1 MG TAB PO PRN (20:19)
[2016-06-06] MEDS: HumaLOG INSULIN (NovoLOG) PER UNIT SC SCH ×5 (00:03→23:51)
[2016-06-06] MEDS: ACETAMINOPHEN 650 MG SUPP PR PRN ×2 (00:04→16:54)
[2016-06-06] MEDS: CEFEPIME HCL 2 GM in D5W MINI-BAG PLUS 50 ML IV SCH ×2 (02:01→13:55)
[2016-06-06] MEDS: SODIUM CHLORIDE 0.9% INJ 10 ML SYR IV SCH ×3 (05:27→20:22)
[2016-06-06 05:42] LABS: MEAN CORPUSCULAR HEMOGLOBIN 26.1 pg (27.0-33.0); MEAN CORPUSCULAR HGB CONC 32.5 g/dl (32.0-36.5); MEAN CORPUSCULAR VOLUME 80.3 fl (80.0-96.0); RED CELL DISTRIBUTION WIDTH 13.6 % (11.5-14.5); WHITE BLOOD COUNT 4.2 K/mm3 (4.0-10.0)
[2016-06-06 05:54] LABS: ANION GAP 7 MEQ/L (8-16); BLOOD UREA NITROGEN 7 MG/DL (7-18); CALCIUM LEVEL 9.1 MG/DL (8.8-10.2); CARBON DIOXIDE LEVEL 33 MEQ/L (21-32); CHLORIDE LEVEL 105 MEQ/L (98-107); CREATININE FOR GFR 0.37 MG/DL (0.55-1.02); GLOMERULAR FILTRATION RATE > 60.0 (>45); GLUCOSE, FASTING 172 MG/DL (80-110); POTASSIUM SERUM 3.2 MEQ/L (3.5-5.1); SODIUM LEVEL 145 MEQ/L (136-145)
[2016-06-06 06:00] VITALS: BP 159/81
[2016-06-06] MEDS: IPRATROPIUM 0.5MG/ALBUTEROL 2.5MG INH SOL UD 3ML (DUONEB)(J7620) NEB SCH ×3 (07:33→20:23)
[2016-06-06] MEDS: BACLOFEN 10 MG TAB PO SCH ×4 (09:09→20:22)
--- NOTE | 2016-06-06 12:12 | IPNPDOC ---
Subjective Date Seen The patient was seen on 06/06/16. Subjective Chief Complaint/HPI The patient is a 65-year-old female admitted with a reason for visit of Sepsis. Constitutional: Denies: Chills, Fever ENT: Denies: Head Aches Pulmonary: Denies: Cough, Dyspnea Cardiovascular: Denies: Chest Pain, Palpitations Gastrointestinal: Denies: Abdominal Pain, Nausea, Vomiting Genitourinary: Denies: Dysuria Hematologic: Denies: Bruising Neurological: Reports: Weakness (chronic weakness in arms and legs) Objective Physical Examination General Exam: Positive: Alert, No Acute Distress Eye Exam: Positive: Conjunctiva & lids normal ENT Exam: Positive: Mucous membr. moist/pink Chest Exam: Positive: Clear to auscultation Heart Exam: Positive: Normal S1, Normal S2, Rate Normal, Negative: Murmurs Abdomen Exam: Positive: Normal bowel sounds, Soft, Negative: Tenderness Extremity Exam: Positive: Edema (trace foot and ankle edema bilaterally) Neuro Exam: Positive: Normal Speech, Negative: Strength at 5/5 X4 ext (patient is able to wiggle toes, move fingers of left hand, and move right hand - strength is at baseline per patient) Psych Exam: Positive: Mental status NL, Mood NL, Oriented x 3 Assessment /Plan Problems (1) Sepsis secondary to UTI Status: Acute Response to Treatment: Stable, Improving Problem Text: Ms. Troy has been afebrile and has maintained good BP off of pressors. She denies any complaints today. - Blood culture grew E. coli, sensitivities pending; urine culture pending - I d /w Micro and they are still working on sensitivities and hopes to have these resulted tomorrow - Currently on Cefepime IV; once sensitivities are resulted, will narrow antibiotics - Will plan to discharge to [facility] on Tuesday (2) Obstructive uropathy Status: Acute Response to Treatment: Stable Problem Text: 06/06 - Per nursing, <5 cc out of right nephrostomy since yesterday ; I d/w and consulted Dr. Barraza. I ordered a renal ultrasound to assess hydronephrosis and advised nurse to gently flush the nephrostomy. 06/05 Patient presented with right-sided hydronephrosis due to obstructing UJP stone; Dr. Alvarenga placed a right nephrostomy tube on 06/03/16. I d/w Dr. Barraza ( urology on-call doctor) who states that patient should be discharged with nephrostomy tube and follow-up with Urology as an outpatient. (3) Multiple sclerosis Status: Chronic Response to Treatment: Stable Problem Text: Continue home baclofen. (4) Chronic pain syndrome Status: Chronic Response to Treatment: Stable Problem Text: Patient is on morphine at home; this has been held during her hospitalization and she has no complaints of pain today. (5) HTN (hypertension) Status: Chronic Response to Treatment: Stable Problem Text: Losartan and clonidine have been held due to initial hypotension requiring pressors due to sepsis; will restart if BP becomes elevated. (6) Diabetes mellitus Status: Chronic Problem Text: Continue SSI and carb consistent diet; will resume home metformin upon discharge. (7) Metabolic encephalopathy Status: Resolved Response to Treatment: Stable Problem Text: Due to UTI and sepsis. Plan/VTE VTE Prophylaxis Ordered?: Yes Plan/Urinary Catheter Reason for insertion/continuin: Other-document below (chronic, neurogenic bladder) VS, I&O, 24H, [facility] Vital Signs/I&O Vital Signs Date Time Temp Pulse Resp B/P Pulse Ox O2 Delivery O2 Flow Rate FiO2 06/06/16 09:16 Nasal Cannula 1.0 06/06/16 06:00 98.0 75 20 159/81 95 I&O- Last 24 Hours up to 6 AM 06/06/16 06:00 Intake Total 720 ml Output Total 2300 ml Balance -1580 ml Laboratory Data 24H LABS Laboratory Tests 2 06/05/16 12:05: Bedside Glucose (Misc Panel) 199H 06/05/16 17:10: Bedside Glucose (Misc Panel) 203H 06/05/16 23:42: Bedside Glucose (Misc Panel) 195H 06/06/16 05:22: Anion Gap 7L, Blood Urea Nitrogen 7, Creatinine 0.37L, Sodium Level 145, Potassium Level 3.2L, Chloride Level 105, Carbon Dioxide Level 33H, Calcium Level 9.1, Glomerular Filtration Rate > 60.0 06/06/16 05:23: Bedside Glucose (Misc Panel) 164H CBC/BMP Laboratory Tests 06/06/16 05:22 Calcium Level 9.1, Red Blood Count 4.25, Mean Corpuscular Volume 80.3, Mean Corpuscular Hemoglobin 26.1 L, Mean Corpuscular Hemoglobin Concent 32.5, Red Cell Distribution Width 13.6 Microbiology Microbiology 06/02/16 Blood Culture - Preliminary, Resulted No Growth after 72 hours. All specime... 06/02/16 Blood Culture - Preliminary, Resulted Escherichia Coli 06/02/16 Respiratory Virus Panel (PCR) ([facility]) - Final, Complete 06/03/16 Urine Culture, Received Pending 06/03/16 Anaerobic Culture, Received Pending 06/02/16 Urine Culture, Received Pending RIC MOODY MD Jun 06, 2016 12:12
--- NOTE | 2016-06-06 13:17 | CR ---
UROLOGIC CONSULTATION DATE OF CONSULTATION: 06/06/2016 REASON FOR CONSULTATION: Urosepsis secondary to an obstructing right ureteropelvic junction stone measuring 15 mm. HISTORY OF PRESENT ILLNESS: The patient is a 65-year-old resident of [facility] with progressive multiple sclerosis (MS) and wheelchair bound. She was brought to the hospital on 06/02/2016 with loss of consciousness and fever. She has a 102 temperature on admission. A CT scan of the abdomen and pelvis was done on 06/02/2016 and this showed moderate right hydronephrosis with a 15 mm ureteropelvic junction stone and other nonobstructing right ureteral calculi. A nephrostomy tube was then placed by Dr. Alvarenga on 06/03/2016. Her white blood count now is normal and she has been afebrile. A blood culture did come back showing E. coli and the urine culture is still pending. A urologic consultation was requested for followup care and also for a question today of the nephrostomy tube not draining well. The patient does also have a history of a neurogenic bladder and has been managed by chronic Robb catheter, but thought that this was causing to many urinary tract infections since when she would poop into a diaper this would get into the catheter also. She now urinates on her own into a diaper and feels that this works better for her. She does get quite a few infections a year, but she feels that she does not get cleaned as often as she would like and she thinks it is secondary to that. She has no previous history of kidney stones and denies any gross hematuria. PAST MEDICAL HISTORY: Multiple sclerosis. Neurogenic bladder. Chronic incontinence and recurrent urinary tract infections. High blood pressure. Daw-ydzagyj-nlsrrcman diabetes. Chronic obstructive pulmonary disease (COPD). Oxygen dependent on 2 liters. Chronic pain secondary to her MS. Hyperlipidemia. Seasonal allergies. Gastroesophageal reflux disease (GERD). PAST SURGICAL HISTORY: Tonsillectomy and adenoidectomy. Hysterectomy and prior to that bilateral tubal ligation. Cholecystectomy. Oral surgery. SOCIAL HISTORY: She lives at [facility]. She is . She quit smoking cigarettes 10 years ago. She does not drink alcohol and denies using illicit drugs. FAMILY HISTORY: Noncontributory. REVIEW OF SYSTEMS: 12 system has been reviewed in the chart. She is wheelchair bound and has been for at least 10 years. She has been moving her bowels well. She does have chronic pain from the multiple sclerosis. PHYSICAL EXAMINATION: This is a well-developed, well-nourished female lying in a hospital bed in no apparent respiratory disease, wearing a nasal cannula and alert and oriented times three. She is afebrile and her blood pressure is 159/81, pulse is 75 and her respiratory rate is 20. Her head is normocephalic, atraumatic. Her eyes are pupils equal, round, reactive to light. Extraocular muscles intact. Her neck is supple without any significant supraclavicular or cervical adenopathy. Her heart has a regular rate and rhythm and there have been no rubs, gallops or murmurs appreciated. She has no significant CVA tenderness now. There is a nephrostomy tube coming out of the right flank and there is some yellow urine in the bag. Her abdomen is otherwise soft and nontender, but there is no significant masses or rebound appreciated. A Robb catheter is in place draining clear yellow urine. Her extremities show no cyanosis or clubbing and there may be some very trace ankle edema. Neurologic exams shows that she is able to wiggle her toes, but has decreased strength in her lower extremities making it unable for her to stand on her legs. LABORATORY DATA: Her white blood count is 7.2, hemoglobin and hematocrit is 11.1/34.1, BUN is 7 and her creatinine is 0.33. A urinalysis from 06/02/2016 had shown a 131 white blood cells and 11 red blood cells and a urine culture is still pending. She did have E. coli in her blood from 06/02/2016. Her serum calcium is 9.1. IMPRESSION: 1. E. coli urosepsis secondary to a 15 mm obstructing right ureteropelvic junction stone, now being drained with a nephrostomy tube and the patient being treated and managed medically. She is on cefepime 2 grams every 12 hours. 2. Question of right nephrostomy tube not draining correctly, but there is yellow urine in the bag and this is easily flushed with good urine return. PLAN: 1. Schedule a renal ultrasound now just to make sure the tube looks like it is in good placement and that the hydronephrosis is decreased. 2. Schedule a KUB since if the stone is well seen she can be treated as an outpatient with extracorporeal shock wave lithotripsy (ESWL) in the future, but it is not recommended to do intervention for at least two weeks after antibiotic therapy. 3. Continue medical management and the patient will followup as an outpatient in our office so that she can be scheduled for outpatient surgical management when she is medically stable. Thank you very much for allowing me to participate in the care of this patient. Please call if there is any further questions or concerns.
--- NOTE | 2016-06-06 13:47 | REP ---
Clinical: Right-sided nephrostomy. Technique: Real time youngblood scale ultrasound examination using curved array transducer. Findings: Right kidney is normal in contour, size, echogenicity and reniform shape. Nephrostomy tube identified. No hydronephrosis, cystic or mass lesion. Intrarenal calculi identified. Left kidney is normal in contour, size, echogenicity and reniform shape without hydronephrosis, nephrolithiasis, cystic or mass lesion. Robb catheter in collapsed bladder. Right kidney measures 14.8 x 6.0 x 7.4 cm. Left kidney measures 12.5 x 4.7 x 4.4 cm. Impression: Right-sided nephrostomy identified along with intrarenal calculi. No hydronephrosis. Normal left kidney. Signed by Freddy Lowe MD 06/06/2016 01:38 P
[2016-06-06 14:00] VITALS: BP 162/72
[2016-06-06] MEDS ORDERED: POTASSIUM CHLORIDE 10 MEQ SR TABLET PO ONE (19:45)
[2016-06-06 22:00] VITALS: BP 156/78
[2016-06-06] MEDS: LORazepam 1 MG TAB PO PRN (22:12)
[2016-06-06] MEDS: ACETAMINOPHEN TAB 650MG DOSE (2X325MG) PO PRN (22:13)
[2016-06-07] MEDS: IPRATROPIUM 0.5MG/ALBUTEROL 2.5MG INH SOL UD 3ML (DUONEB)(J7620) NEB SCH ×2 (01:27→07:13)
[2016-06-07] MEDS: CEFEPIME HCL 2 GM in D5W MINI-BAG PLUS 50 ML IV SCH (01:58)
[2016-06-07] MEDS: ACETAMINOPHEN TAB 650MG DOSE (2X325MG) PO PRN (04:22)
[2016-06-07] MEDS: SODIUM CHLORIDE 0.9% INJ 10 ML SYR IV SCH (05:03)
[2016-06-07 05:37] LABS: MEAN CORPUSCULAR HEMOGLOBIN 25.8 pg (27.0-33.0); MEAN CORPUSCULAR HGB CONC 32.3 g/dl (32.0-36.5); MEAN CORPUSCULAR VOLUME 79.9 fl (80.0-96.0); RED CELL DISTRIBUTION WIDTH 13.6 % (11.5-14.5); WHITE BLOOD COUNT 5.4 K/mm3 (4.0-10.0)
[2016-06-07 05:45] LABS: ANION GAP 6 MEQ/L (8-16); BLOOD UREA NITROGEN 8 MG/DL (7-18); CALCIUM LEVEL 9.6 MG/DL (8.8-10.2); CARBON DIOXIDE LEVEL 33 MEQ/L (21-32); CHLORIDE LEVEL 104 MEQ/L (98-107); CREATININE FOR GFR 0.31 MG/DL (0.55-1.02); GLOMERULAR FILTRATION RATE > 60.0 (>45); GLUCOSE, FASTING 180 MG/DL (80-110); POTASSIUM SERUM 3.5 MEQ/L (3.5-5.1); SODIUM LEVEL 143 MEQ/L (136-145)
[2016-06-07 06:00] VITALS: BP 164/82
[2016-06-07] MEDS: HumaLOG INSULIN (NovoLOG) PER UNIT SC SCH ×2 (06:16→12:28)
[2016-06-07] MEDS ORDERED: oxyCODONE 5MG TAB PO ONE (06:30)
[2016-06-07] MEDS: BACLOFEN 10 MG TAB PO SCH ×2 (08:22→12:27)
[2016-06-07] MEDS ORDERED: CEFD1CAP8 PO (09:42)
--- NOTE | 2016-06-07 10:37 | DSES ---
DATE OF ADMISSION: 06/02/2016 DATE OF DISCHARGE: PRIMARY CARE PROVIDER: Dr. Mukund Pabon ATTENDING PHYSICIAN: Dr. Hector Staples HISTORY: This is a 65-year-old resident of [facility] with a significant history of multiple sclerosis, neurogenic bladder, chronic urinary incontinence, who complained of fever and decreased level of consciousness. She was admitted to the hospital for likely sepsis secondary to urological source. During her hospitalization, she has remained medically stable. She was started on intravenous hydration. She was initially placed in the intensive care unit (ICU) on pressors secondary to hypotension. These have ultimately been discontinued. Cultures, including urine cultures and blood cultures were obtained. She had a blood culture positive for Escherichia (E) coli. Urine cultures times two positive for E coli. She has been on IV cefepime and also initially on vancomycin on admission, although this was not continued. We will transition her from cefepime to oral cefdinir for an additional 7 days. She again was found on admission via CT scan to have moderate acute right sided obstructive uropathy with a 15 mm stone obstructing the ureteropelvic junction, also nonobstructive calculi noticed. Left kidney was stable. She had a ureteral stent placed by interventional radiology. Renal ultrasound performed on 06/06/2016 identifying nephrostomy tube in appropriate placement. She was seen by Dr. Barraza on 06/06/2016 who recommended likely undergoing Extracorporeal shock wave lithotripsy (ESWL) in the future, although this should be at least two weeks after antibiotic therapy. DISCHARGE DIAGNOSES: 1. Sepsis secondary to urinary tract infection (UTI). 2. Obstructive uropathy. 3. Multiple sclerosis. 4. Chronic pain syndrome. 5. Hypertension. 6. Diabetes mellitus type 2. 7. Metabolic encephalopathy. DISCHARGE MEDICATIONS: - acetaminophen 650 mg oral or per rectum every 4 hours as needed for pain - albuterol sulfate two puffs inhaled every 4 hours as needed for shortness of breath - DuoNeb inhaled every 4 hours as needed for shortness of breath - Baclofen 20 mg by mouth four times daily - bisacodyl 10 mg per rectum daily as needed for constipation - Tums 1000 mg by mouth every 4 hours as needed for indigestion - Catapres 0.1 mg by mouth before bed - cranberry 425 mg by mouth daily - Docusate sodium, Senna two tablets daily - Cymbalta 30 mg by mouth twice a day - Tricor 145 mg by mouth daily - fluticasone two sprays intranasally daily - gabapentin 300 mg by mouth twice a day - glipizide 2.5 mg by mouth daily - ipratropium 400 mg every 6 hours as needed for pain or fever - Ativan 1 mg by mouth as needed for insomnia - losartan 25 mg by mouth daily - Metformin 500 mg by mouth twice a day - milk of magnesia 30 mL by mouth daily as needed for constipation - morphine 15 mg by mouth twice a day - omeprazole 20 mg by mouth daily - oxybutynin 5 mg by mouth daily - MiraLAX 17 grams by mouth as needed daily - ranitidine 150 mg by mouth daily DISCHARGE PLAN: Followup with Dr. Pabon in a couple of days. Activity should be as tolerated. Diet should be consistent carbohydrate. MTDD
== END 2016-06-07 12:58 | DRG 871 ==
LOC: M ED 10:59 → M ED INP 15:08 → M ICU 18:15 → M PCU 06-05 11:10 → M MSPAV 06-05 15:41
PROVIDERS: ADMIT Internal Medicine; ATTEND Family Medicine
PROC: 05HM33Z Insertion of Infusion Device into Right Internal Jugular Vein, Percutaneous Approach (ICD-10-PCS; 2016-06-02)
PROC: 0T9030Z Drainage of Right Kidney with Drainage Device, Percutaneous Approach (ICD-10-PCS; principal; 2016-06-03 15:00)
DX: A41.51 Sepsis due to Escherichia coli [E. coli] (principal); R65.21 Severe sepsis with septic shock; G93.41 Metabolic encephalopathy; N13.0 Hydronephrosis with ureteropelvic junction obstruction; N39.0 Urinary tract infection, site not specified; G20 Parkinson's disease; N31.9 Neuromuscular dysfunction of bladder, unspecified; R32 Unspecified urinary incontinence; I10 Essential (primary) hypertension; E11.9 Type 2 diabetes mellitus without complications; J44.9 Chronic obstructive pulmonary disease, unspecified; G89.4 Chronic pain syndrome; E78.5 Hyperlipidemia, unspecified; J30.2 Other seasonal allergic rhinitis; K21.9 Gastro-esophageal reflux disease without esophagitis; Z99.81 Dependence on supplemental oxygen; Z87.891 Personal history of nicotine dependence; Z79.891 Long term (current) use of opiate analgesic; Z88.0 Allergy status to penicillin; Z88.1 Allergy status to other antibiotic agents; Z88.2 Allergy status to sulfonamides; Z99.3 Dependence on wheelchair; Z87.440 Personal history of urinary (tract) infections

== ENCOUNTER → 2016-06-02 | Outpatient (REF) | payer MEDICARE, MEDICAID ==
[~2016-06-02] MED LIST changes: -IMMUNE GLOBULIN 10% 30 GM in APPROPRIATE DILUENT 1 EA IV ONE; -IMMUNE GLOBULIN 10% 5 GM in APPROPRIATE DILUENT 1 EA IV ONE; +IPRASOL4 INH; +METF-699 PO; +MORP-38 PO; +RANI15TA PO; +TUMS500C PO
[2016-06-02 07:46] LABS: MEAN CORPUSCULAR HEMOGLOBIN 26.2 pg (27.0-33.0); MEAN CORPUSCULAR HGB CONC 32.9 g/dl (32.0-36.5); MEAN CORPUSCULAR VOLUME 79.6 fl (80.0-96.0); PLATELET COUNT, AUTOMATED 250 k/mm3 (150-450); RED CELL DISTRIBUTION WIDTH 14.1 % (11.5-14.5); WHITE BLOOD COUNT 14.8 K/mm3 (4.0-10.0)
[2016-06-02 08:01] LABS: CALCIUM LEVEL 8.8 MG/DL (8.8-10.2); CREATININE FOR GFR 1.14 MG/DL (0.55-1.02); GLOMERULAR FILTRATION RATE 51.2 (>45); POTASSIUM SERUM 4.3 MEQ/L (3.5-5.1)
--- NOTE | 2016-06-02 09:30 | REP ---
Clinical: Chest and abdominal pain. Technique: PA and lateral. Comparison: 10/27/2015. Findings: Mediastinum and cardiac silhouette are stable. Lung stout demonstrate chronic-appearing changes right basilar atelectasis cannot be excluded. No obvious effusion. No pneumothorax. Skeletal structures demonstrate osteopenia and degenerative change. Impression: Cannot exclude right lower lobe atelectasis. Signed by Freddy Lowe MD 06/02/2016 09:22 A
--- NOTE | 2016-06-02 09:32 | REP ---
Clinical: Abdominal pain. Technique: Two supine views of the abdomen and pelvis. Findings: Bowel gas pattern is nonspecific although moderate fecal stasis and constipation is suggested. Skeletal structures demonstrate osteopenia and degenerative changes. Evidence for prior cholecystectomy. Impression: Fecal stasis and constipation suggested. No evidence for bowel obstruction. Signed by Freddy Lowe MD 06/02/2016 09:23 A
[2016-06-02 11:23] LABS: BASO % 0.4 % (0.0-1.0); EOS % 1.4 % (0.0-3.0); LARGE UNSTAINED CELL % 0.5 % (0.0-4.0); LYMPH % 9.2 % (24.0-44.0); MONO % 3.1 % (0.0-5.0); NEUTROPHILS % 85.3 % (36.0-66.0)
[2016-06-02 11:24] LABS: BASO # 0.1 K/mm3 (0.0-0.2); DIFF SLIDE NUMBER 119; EOS # 0.2 K/mm3 (0.0-0.50); LARGE UNSTAINED CELL # 0.1 K/mm3 (0.0-0.4); LYMPH # 1.4 K/mm3 (1.5-4.5); MONO # 0.5 K/mm3 (0.0-0.8); NEUTROPHILS # 13.2 K/mm3 (1.8-7.7)
== END ==
LOC: SKLAB5 06:35
PROVIDERS: ATTEND Family Medicine
DX: R50.9 Fever, unspecified (principal); R11.2 Nausea with vomiting, unspecified

== ENCOUNTER → 2016-06-06 | Outpatient (CLI) | payer MEDICARE, MEDICAID ==
[~2016-06-06] MED LIST changes: +IPRASOL4 INH; +METF-699 PO; +MORP-38 PO; +RANI15TA PO; +TUMS500C PO
--- NOTE | 2016-06-06 13:45 | REP ---
Clinical: Nephrolithiasis. Technique: Two supine views of the abdomen and pelvis. Findings: A right-sided nephrostomy tube is appreciated along with renal calculi up to approximately 13 mm. The bowel gas pattern is nonspecific although underlying ileus cannot be excluded. Skeletal structures demonstrate age-related degenerative changes. Evidence for prior cholecystectomy. Impression: Right nephrostomy and nephrolithiasis. Further findings as above. Signed by Freddy Lowe MD 06/06/2016 01:36 P
== END ==
LOC: M RAD 08:00
PROVIDERS: ATTEND Family Medicine
DX: G35 Multiple sclerosis (principal); N20.0 Calculus of kidney

== ENCOUNTER → 2016-06-19 | Outpatient (REF) | payer MEDICARE, MEDICAID ==
[2016-06-19 17:12] LABS: CALCIUM OXALATE CRYSTALS SMALL; YEAST LIKE CELL URINE AUTO SMALL
== END ==
LOC: SKLAB5 16:11
PROVIDERS: ATTEND Family Medicine
DX: N39.0 Urinary tract infection, site not specified (principal)

== ENCOUNTER → 2016-07-01 | Outpatient (REF) | payer MEDICARE, MEDICAID ==
[2016-07-01 10:41] LABS: MEAN CORPUSCULAR HEMOGLOBIN 26.1 pg (27.0-33.0); MEAN CORPUSCULAR HGB CONC 32.3 g/dl (32.0-36.5); MEAN CORPUSCULAR VOLUME 80.8 fl (80.0-96.0); WHITE BLOOD COUNT 7.1 K/mm3 (4.0-10.0)
[2016-07-01 11:00] LABS: INR 1.06
[2016-07-01 11:09] LABS: ANION GAP 4 MEQ/L (8-16); BLOOD UREA NITROGEN 15 MG/DL (7-18); CALCIUM LEVEL 9.3 MG/DL (8.8-10.2); CARBON DIOXIDE LEVEL 34 MEQ/L (21-32); CHLORIDE LEVEL 106 MEQ/L (98-107); CREATININE FOR GFR 0.36 MG/DL (0.55-1.02); GLOMERULAR FILTRATION RATE > 60.0 (>45); GLUCOSE, FASTING 104 MG/DL (80-110); POTASSIUM SERUM 4.2 MEQ/L (3.5-5.1); SODIUM LEVEL 144 MEQ/L (136-145)
== END ==
LOC: SKLAB5 09:28
PROVIDERS: ATTEND Family Medicine
DX: G35 Multiple sclerosis (principal); D64.9 Anemia, unspecified; E03.9 Hypothyroidism, unspecified; E11.9 Type 2 diabetes mellitus without complications

== ENCOUNTER → 2016-07-05 | Day surgery (SDC) | payer MEDICARE, MEDICAID ==
[~2016-07-05] VITALS: Ht 170.2 cm; Wt 72.6 kg
[~2016-07-05] MED LIST changes: +CIPROFLOXACIN 400 MG in APPROPRIATE DILUENT 1 EA IV ONE; +CONRAY-60 60% 50ML VIAL (Q9961) As Ordered ONE; +GLYCOPYRROLATE INJ 0.2 MG/ML 2 ML VIAL As Ordered ONE; +LIDOCAINE 2% INJ 100 MG/5 ML SDV (FOR ANES.) As Ordered ONE; +LR 1,000 ML IV ONE; +LR 1,000 ML IV SCH; +MIDAZOLAM INJ 2 MG/2 ML VIAL (J2250) As Ordered ONE; +NEOSTIGMINE 1MG/ML 5 ML SYRINGE (J2710) As Ordered ONE; +ONDANSETRON 4MG/2ML VIAL (J2405) As Ordered ONE; +ONDANSETRON 4MG/2ML VIAL (J2405) IV PRN; +PHENYLEPHRINE INJ 10MG/ML VIAL (J2370) As Ordered ONE; +PHENYLephrine HCL 500 MCG/5 ML (100MCG/ML) SYRINGE (J2370) As Ordered ONE; +PROPOFOL 200 MG/20 ML VIAL As Ordered ONE; +ROCURONIUM BROMIDE 50 MG/5 ML VIAL As Ordered ONE; +ePHEDrine SULFATE 25 MG/5 ML(5MG/ML) SYRINGE As Ordered ONE; +fentaNYL 100 MCG/2 ML INJECTION (J3010) IV PRN; +fentaNYL 250 MCG/5 ML INJECTION (J3010) As Ordered ONE
--- NOTE | 2016-07-05 09:58 | RO ---
DATE OF PROCEDURE: 07/05/2016 PREPROCEDURE DIAGNOSIS: Right kidney stones. POSTPROCEDURE DIAGNOSIS: Right kidney stones. PROCEDURE: Cystoscopy, right ureteroscopy with laser lithotripsy and basket extraction of stones, right retrograde pyelogram with intraoperative interpretation of images, right ureteral stent placement, right percutaneous nephrostomy tube removal. SURGEON: Dr. Aubrey Kim SEMICONDUCTOR WAFER INSPECTOR: None. ANESTHESIA: General. OPERATIVE INDICATIONS: This is a 65-year-old female who was found to have an obstructing 1.5 cm right ureteropelvic junction stone as well as several other nonobstructive stones of the right kidney about a month ago. She came in with urosepsis and therefore a right percutaneous nephrostomy tube was placed at that time. She was brought to the operating room today for treatment of her stones. DESCRIPTION OF PROCEDURE: The patient was brought to the operating room and general anesthesia induced. Prophylactic antibiotics were infused. She was then placed in dorsal lithotomy position and prepped and draped in the usual sterile fashion. A rigid cystoscope was then inserted into the urethral meatus and advanced into the bladder. Once within the bladder, a wire was advanced up the right collecting system. We then advanced a ureteral access sheath over the wire up into the right collecting system. The stylet was then removed and the wire was secured to the drape to serve as a safety wire. We then went up the access sheath with the flexible ureteroscope and within the kidney several stones were seen, including the 1.5 cm stone. A 200 micron laser fiber was then utilized to fragment the stone into smaller pieces. Of note, the stone did appear to be soft and therefore fragmented easily . Some of these fragments were obtained to be sent for stone analysis. The remainder of the stone fragments were then fragmented into very tiny fragments using the laser. Once done, the only thing remaining were tiny fragments that were small enough to pass on their own. At this point, the previously placed nephrostomy tube was removed. A retrograde pyelogram was performed and was negative for extravasation. We then removed the ureteral access sheath along with the ureteroscope. No additional stones were seen within the ureter. We then utilized the previously placed wire to advance a 7 Latvian x 22-32 cm JJ ureteral stent up into the right collecting system. The wire was then removed and there were adequate curls of the stent in the right renal pelvis and in the bladder. The bladder was emptied of all fluid and this marked the conclusion of the procedure. The patient was then taken out of the dorsal lithotomy position, awakened from anesthesia and transported to the recovery room in stable condition. ESTIMATED BLOOD LOSS: 0 mL. COMPLICATIONS: None. SPECIMEN: Kidney stone fragments. PLAN: The patient will be brought back to be seen in the clinic in a few weeks for stent removal. ESMER
--- NOTE | 2016-07-05 10:04 | REP ---
C-ARM VIEWS OF THE ABDOMEN AND PELVIS: Three C-arm views are performed. Right ureteral stent is noted. The proximal end is coiled in the region of the right kidney. The distal end is coiled in the region of the inferior pelvis. 17 seconds fluoroscopy time utilized. Signed by Grayson Ball MD 07/05/2016 05:41 P
[2016-07-05 13:15] VITALS: BP 132/74
== END | disposition home or self-care (01) ==
LOC: M SDC 07:01
PROVIDERS: ATTEND Urology
DX: N20.0 Calculus of kidney (principal); N13.30 Unspecified hydronephrosis; G35 Multiple sclerosis; I11.9 Hypertensive heart disease without heart failure; E11.9 Type 2 diabetes mellitus without complications; I25.10 Atherosclerotic heart disease of native coronary artery without angina pectoris; K21.9 Gastro-esophageal reflux disease without esophagitis; G89.4 Chronic pain syndrome; E78.5 Hyperlipidemia, unspecified; J44.9 Chronic obstructive pulmonary disease, unspecified; D64.9 Anemia, unspecified; N13.9 Obstructive and reflux uropathy, unspecified; E46 Unspecified protein-calorie malnutrition; R53.2 Functional quadriplegia; R32 Unspecified urinary incontinence; Z99.81 Dependence on supplemental oxygen; Z87.440 Personal history of urinary (tract) infections; Z87.891 Personal history of nicotine dependence; Z88.0 Allergy status to penicillin; Z88.1 Allergy status to other antibiotic agents; Z88.2 Allergy status to sulfonamides; Z79.899 Other long term (current) drug therapy; Z79.891 Long term (current) use of opiate analgesic; Z79.84 Long term (current) use of oral hypoglycemic drugs; Z86.14 Personal history of Methicillin resistant Staphylococcus aureus infection
CPT/HCPCS: 52356; 74420; 82360; 88300; C1726; C1894; J0744; J2250; J2370; J2405; J2710; J3010; Q9961

== ENCOUNTER → 2016-07-08 | Outpatient (REF) | payer MEDICARE, MEDICAID ==
[~2016-07-08] MED LIST changes: -CIPROFLOXACIN 400 MG in APPROPRIATE DILUENT 1 EA IV ONE; -CONRAY-60 60% 50ML VIAL (Q9961) As Ordered ONE; -GLYCOPYRROLATE INJ 0.2 MG/ML 2 ML VIAL As Ordered ONE; -LIDOCAINE 2% INJ 100 MG/5 ML SDV (FOR ANES.) As Ordered ONE; -LR 1,000 ML IV ONE; -LR 1,000 ML IV SCH; -MIDAZOLAM INJ 2 MG/2 ML VIAL (J2250) As Ordered ONE; -NEOSTIGMINE 1MG/ML 5 ML SYRINGE (J2710) As Ordered ONE; -ONDANSETRON 4MG/2ML VIAL (J2405) As Ordered ONE; -ONDANSETRON 4MG/2ML VIAL (J2405) IV PRN; -PHENYLEPHRINE INJ 10MG/ML VIAL (J2370) As Ordered ONE; -PHENYLephrine HCL 500 MCG/5 ML (100MCG/ML) SYRINGE (J2370) As Ordered ONE; -PROPOFOL 200 MG/20 ML VIAL As Ordered ONE; -ROCURONIUM BROMIDE 50 MG/5 ML VIAL As Ordered ONE; -ePHEDrine SULFATE 25 MG/5 ML(5MG/ML) SYRINGE As Ordered ONE; -fentaNYL 100 MCG/2 ML INJECTION (J3010) IV PRN; -fentaNYL 250 MCG/5 ML INJECTION (J3010) As Ordered ONE
[2016-07-08 10:11] LABS: MEAN CORPUSCULAR HGB CONC 31.7 g/dl (32.0-36.5); WHITE BLOOD COUNT 6.1 K/mm3 (4.0-10.0)
[2016-07-08 10:38] LABS: ANION GAP 6 MEQ/L (8-16); BLOOD UREA NITROGEN 17 MG/DL (7-18); CALCIUM LEVEL 8.8 MG/DL (8.8-10.2); CARBON DIOXIDE LEVEL 32 MEQ/L (21-32); CHLORIDE LEVEL 104 MEQ/L (98-107); CREATININE FOR GFR 0.37 MG/DL (0.55-1.02); GLOMERULAR FILTRATION RATE > 60.0 (>45); GLUCOSE, FASTING 93 MG/DL (80-110); POTASSIUM SERUM 4.2 MEQ/L (3.5-5.1); SODIUM LEVEL 142 MEQ/L (136-145)
== END ==
LOC: EEVIPCON → SKLAB5 07:10
PROVIDERS: ATTEND Family Medicine
DX: D64.9 Anemia, unspecified (principal)

== ENCOUNTER 2016-08-05 08:57 | Outpatient (CLI) | payer MEDICARE, MEDICAID ==
[~2016-08-05] VITALS: Ht 167.6 cm; Wt 74.1 kg
[2016-08-05] MEDS ORDERED: IMMUNE GLOBULIN 10% 10GM 100ML 10 GM in APPROPRIATE DILUENT 1 EA IV ONE (09:30)
[2016-08-05] MEDS ORDERED: IMMUNE GLOBULIN 10% 5GM 5 GM in APPROPRIATE DILUENT 1 EA IV ONE (09:30)
[2016-08-05] MEDS ORDERED: IMMUNE GLOBULIN 10% 20GM 200ML 20 GM in APPROPRIATE DILUENT 1 EA IV ONE (09:30)
[2016-08-05] MEDS ORDERED: BACLOFEN 10 MG TAB PO ONE (12:00)
== END 2016-08-05 12:15 | disposition home or self-care (01) ==
LOC: M INFU 08:57
PROVIDERS: ATTEND Family Medicine
DX: G35 Multiple sclerosis (principal); Z79.899 Other long term (current) drug therapy; Z88.0 Allergy status to penicillin; Z88.2 Allergy status to sulfonamides
CPT/HCPCS: 96365; 96366; J1569

== ENCOUNTER → 2016-08-09 | Outpatient (REF) | payer MEDICARE, MEDICAID | LOC: SKLAB5 11:01 | PROVIDERS: ATTEND Family Medicine | DX: E11.9 Type 2 diabetes mellitus without complications (principal) ==

== ENCOUNTER → 2016-08-10 | Outpatient (REF) | payer MEDICARE, MEDICAID | LOC: SKLAB5 12:16 | PROVIDERS: ATTEND Family Medicine | DX: D64.9 Anemia, unspecified (principal) ==

== ENCOUNTER → 2016-08-12 | Outpatient (REF) | payer MEDICARE, MEDICAID | LOC: SKLAB5 07:57 | PROVIDERS: ATTEND Family Medicine | DX: G35 Multiple sclerosis (principal); E11.9 Type 2 diabetes mellitus without complications; E03.9 Hypothyroidism, unspecified ==

== ENCOUNTER → 2016-08-13 | Outpatient (REF) | payer MEDICARE, MEDICAID | LOC: SKLAB5 13:00 | PROVIDERS: ATTEND Family Medicine | DX: E11.9 Type 2 diabetes mellitus without complications (principal) ==

== ENCOUNTER 2016-09-08 09:21 | Outpatient (CLI) | payer MEDICARE, MEDICAID ==
[~2016-09-08 09:21] MED LIST changes: -ACET-654 PO; +ACET1TAB17 PO; -BACL-67 PO; +BACL1TAB9 PO; +GLIP1TAB49 PO; -GLIP5TAB15 PO; +KEFL500C17 PO; -KEFL500C7 PO; +LEVA1TAB2 PO; -LEVA500T PO; -METF1000 PO; +METF10004 PO; -NYST100024 TOP; +NYST1POW9 TOP; -OXYB5TA PO; +OXYB5TAB10 PO; +PERC5TAB12 PO; -PERC5TAB6 PO; +PHEN-500 PO; -PHEN1TAB80 PO; -TRIC145T PO; +TRIC145T22 PO
[2016-09-08] MEDS ORDERED: IMMUNE GLOBULIN 10% 5GM 5 GM in APPROPRIATE DILUENT 1 EA IV ONE (10:00)
[2016-09-08] MEDS ORDERED: IMMUNE GLOBULIN 10% 20GM 200ML 20 GM in APPROPRIATE DILUENT 1 EA IV ONE (10:00)
[2016-09-08] MEDS ORDERED: IMMUNE GLOBULIN 10% 10GM 100ML 10 GM in APPROPRIATE DILUENT 1 EA IV ONE (10:00)
[2016-09-08] MEDS ORDERED: BACLOFEN 10 MG TAB PO ONE (12:00)
== END 2016-09-08 14:00 | disposition home or self-care (01) ==
LOC: M INFU 09:21
PROVIDERS: ATTEND Family Medicine
DX: G35 Multiple sclerosis (principal); Z88.2 Allergy status to sulfonamides; Z88.1 Allergy status to other antibiotic agents; Z88.0 Allergy status to penicillin; Z88.8 Allergy status to other drugs, medicaments and biological substances; Z79.899 Other long term (current) drug therapy
CPT/HCPCS: 96365; 96366; J1569

== ENCOUNTER → 2016-09-09 | Outpatient (REF) | payer MEDICARE, MEDICAID | LOC: SKLAB5 08:16 | PROVIDERS: ATTEND Family Medicine | DX: E11.9 Type 2 diabetes mellitus without complications (principal) ==

== ENCOUNTER 2016-10-06 09:07 | Outpatient (CLI) | payer MEDICARE, MEDICAID ==
[~2016-10-06] VITALS: Ht 167.6 cm; Wt 74.1 kg
[~2016-10-06 09:07] MED LIST changes: +IMMUNE GLOBULIN 10% 10GM 100ML 10 GM in APPROPRIATE DILUENT 1 EA IV ONE; +IMMUNE GLOBULIN 10% 20GM 200ML 20 GM in APPROPRIATE DILUENT 1 EA IV ONE; +IMMUNE GLOBULIN 10% 5GM 5 GM in APPROPRIATE DILUENT 1 EA IV ONE
[2016-10-06] MEDS ORDERED: BACLOFEN 10 MG TAB PO ONE (12:00)
== END 2016-10-06 13:35 | disposition home or self-care (01) ==
LOC: M INFU 09:07
PROVIDERS: ATTEND Family Medicine
DX: G35 Multiple sclerosis (principal); I10 Essential (primary) hypertension; K21.9 Gastro-esophageal reflux disease without esophagitis; D64.9 Anemia, unspecified; F32.9 Major depressive disorder, single episode, unspecified; Z79.84 Long term (current) use of oral hypoglycemic drugs; Z79.899 Other long term (current) drug therapy; Z88.0 Allergy status to penicillin; Z88.2 Allergy status to sulfonamides
CPT/HCPCS: 96365; 96366; J1569

== ENCOUNTER → 2016-10-07 | Outpatient (REF) | payer MEDICARE, MEDICAID ==
[~2016-10-07] MED LIST changes: -IMMUNE GLOBULIN 10% 10GM 100ML 10 GM in APPROPRIATE DILUENT 1 EA IV ONE; -IMMUNE GLOBULIN 10% 20GM 200ML 20 GM in APPROPRIATE DILUENT 1 EA IV ONE; -IMMUNE GLOBULIN 10% 5GM 5 GM in APPROPRIATE DILUENT 1 EA IV ONE
[2016-10-07 08:41] LABS: MEAN CORPUSCULAR HEMOGLOBIN 26.9 pg (27.0-33.0); MEAN CORPUSCULAR HGB CONC 33.3 g/dl (32.0-36.5); MEAN CORPUSCULAR VOLUME 80.6 fl (80.0-96.0); RED CELL DISTRIBUTION WIDTH 14.4 % (11.5-14.5); WHITE BLOOD COUNT 4.5 K/mm3 (4.0-10.0)
[2016-10-07 09:20] LABS: ANION GAP 9 MEQ/L (8-16); BLOOD UREA NITROGEN 16 MG/DL (7-18); CARBON DIOXIDE LEVEL 30 MEQ/L (21-32); CHLORIDE LEVEL 106 MEQ/L (98-107); CHOLESTEROL LEVEL 150 MG/DL (<200); CREATININE FOR GFR 0.32 MG/DL (0.55-1.02); GLOMERULAR FILTRATION RATE > 60.0 (>45); GLUCOSE, FASTING 75 MG/DL (80-110); POTASSIUM SERUM 3.9 MEQ/L (3.5-5.1); SODIUM LEVEL 145 MEQ/L (136-145); TRIGLYCERIDES LEVEL 198 MG/DL (<150)
== END ==
LOC: SKLAB5 08:45
PROVIDERS: ATTEND Family Medicine
DX: G35 Multiple sclerosis (principal); E11.9 Type 2 diabetes mellitus without complications; D64.9 Anemia, unspecified

== ENCOUNTER 2016-11-11 09:21 | Outpatient (CLI) | payer MEDICARE, MEDICAID ==
[2016-11-11] MEDS ORDERED: IMMUNE GLOBULIN 10% 5GM 5 GM in APPROPRIATE DILUENT 1 EA IV ONE (10:00)
[2016-11-11] MEDS ORDERED: IMMUNE GLOBULIN 10% 20GM 200ML 20 GM in APPROPRIATE DILUENT 1 EA IV ONE (10:00)
[2016-11-11] MEDS ORDERED: IMMUNE GLOBULIN 10% 10GM 100ML 10 GM in APPROPRIATE DILUENT 1 EA IV ONE (10:00)
[2016-11-11] MEDS ORDERED: BACLOFEN 10 MG TAB PO ONE (12:00)
== END 2016-11-11 13:30 | disposition home or self-care (01) ==
LOC: M INFU 09:21
PROVIDERS: ATTEND Family Medicine
DX: G35 Multiple sclerosis (principal); E11.9 Type 2 diabetes mellitus without complications; I10 Essential (primary) hypertension; E78.00 Pure hypercholesterolemia, unspecified; K21.9 Gastro-esophageal reflux disease without esophagitis; D64.9 Anemia, unspecified; F32.9 Major depressive disorder, single episode, unspecified; Z79.2 Long term (current) use of antibiotics; Z79.899 Other long term (current) drug therapy; Z88.2 Allergy status to sulfonamides; Z88.0 Allergy status to penicillin
CPT/HCPCS: 36415; 83036; 96365; 96366; J1569

== ENCOUNTER → 2016-11-11 | Outpatient (REF) | payer MEDICARE, MEDICAID | LOC: SKLAB5 07:26 | PROVIDERS: ATTEND Family Medicine | DX: E11.9 Type 2 diabetes mellitus without complications (principal) ==

== ENCOUNTER 2016-12-08 08:50 | Outpatient (CLI) | payer MEDICARE, MEDICAID ==
[~2016-12-08] VITALS: Ht 167.6 cm; Wt 74.1 kg
[2016-12-08] MEDS ORDERED: BACLOFEN 10 MG TAB PO ONE (09:00)
[2016-12-08] MEDS ORDERED: IMMUNE GLOBULIN 10% 5GM 5 GM in APPROPRIATE DILUENT 1 EA IV ONE (10:00)
[2016-12-08] MEDS ORDERED: IMMUNE GLOBULIN 10% 20GM 200ML 20 GM in APPROPRIATE DILUENT 1 EA IV ONE (10:00)
[2016-12-08] MEDS ORDERED: IMMUNE GLOBULIN 10% 10GM 100ML 10 GM in APPROPRIATE DILUENT 1 EA IV ONE (10:00)
== END 2016-12-08 13:20 | disposition home or self-care (01) ==
LOC: M INFU 08:50
PROVIDERS: ATTEND Family Medicine
DX: G35 Multiple sclerosis (principal); Z88.2 Allergy status to sulfonamides; Z88.1 Allergy status to other antibiotic agents; Z79.899 Other long term (current) drug therapy; Z79.84 Long term (current) use of oral hypoglycemic drugs
CPT/HCPCS: 96365; 96366; J1569

== ENCOUNTER 2017-02-04 09:20 | Outpatient (CLI) | payer MEDICARE, MEDICAID ==
[~2017-02-04] VITALS: Ht 167.6 cm; Wt 74.1 kg
[2017-02-04] MEDS ORDERED: IMMUNE GLOBULIN 10% 5GM 5 GM in APPROPRIATE DILUENT 1 EA IV ONE (10:00)
[2017-02-04] MEDS ORDERED: IMMUNE GLOBULIN 10% 20GM 200ML 20 GM in APPROPRIATE DILUENT 1 EA IV ONE (10:00)
[2017-02-04] MEDS ORDERED: IMMUNE GLOBULIN 10% 10GM 100ML 10 GM in APPROPRIATE DILUENT 1 EA IV ONE (10:00)
[2017-02-04] MEDS ORDERED: BACLOFEN 10 MG TAB PO ONE (12:00)
== END 2017-02-04 13:30 | disposition home or self-care (01) ==
LOC: M INFU 09:20
PROVIDERS: ATTEND Family Medicine
DX: G35 Multiple sclerosis (principal); Z88.2 Allergy status to sulfonamides; Z88.1 Allergy status to other antibiotic agents; Z88.0 Allergy status to penicillin; Z79.84 Long term (current) use of oral hypoglycemic drugs; Z79.899 Other long term (current) drug therapy
CPT/HCPCS: 96365; 96366; J1569

== ENCOUNTER → 2017-02-09 | Outpatient (REF) | payer MEDICARE, MEDICAID | LOC: SKLAB5 14:34 | PROVIDERS: ATTEND Family Medicine | DX: R10.9 Unspecified abdominal pain (principal); R39.89 Other symptoms and signs involving the genitourinary system ==

== ENCOUNTER → 2017-02-10 | Outpatient (REF) | payer MEDICARE, MEDICAID | LOC: SKLAB5 07:45 | PROVIDERS: ATTEND Family Medicine | DX: E11.9 Type 2 diabetes mellitus without complications (principal) ==

== ENCOUNTER → 2017-03-04 | Outpatient (REF) | payer MEDICARE, MEDICAID ==
[2017-03-04 03:17] LABS: BASO % 0.2 % (0.0-1.0); EOS # 0.1 10^3/uL (0.0-0.50); EOS % 0.5 % (0.0-3.0); IMMATURE GRANULOCYTE # 0.1 10^3/uL (0-0); IMMATURE GRANULOCYTE % 0.6 % (0-0); LYMPH # 0.9 10^3/uL (1.5-4.5); LYMPH % 6.1 % (24.0-44.0); MEAN CORPUSCULAR HEMOGLOBIN 25.2 pg (27.0-33.0); MEAN CORPUSCULAR HGB CONC 31.2 g/dl (32.0-36.5); MEAN CORPUSCULAR VOLUME 80.6 fl (80.0-96.0); MONO # 0.5 10^3/uL (0.0-0.8); MONO % 3.7 % (0.0-5.0); NEUTROPHILS # 12.9 10^3/uL (1.8-7.7); NEUTROPHILS % 88.9 % (36.0-66.0); PLATELET COUNT, AUTOMATED 244 10^3/uL (150-450); RED CELL DISTRIBUTION WIDTH 13.9 % (11.5-14.5); WHITE BLOOD COUNT 14.5 10^3/uL (4.0-10.0)
[2017-03-04 03:36] LABS: ALT/SGPT 32 U/L (12-78); ANION GAP 7 MEQ/L (8-16); AST/SGOT 25 U/L (7-37); BLOOD UREA NITROGEN 17 MG/DL (7-18); CALCIUM LEVEL 8.6 MG/DL (8.8-10.2); CARBON DIOXIDE LEVEL 31 MEQ/L (21-32); CHLORIDE LEVEL 104 MEQ/L (98-107); CREATININE FOR GFR 0.37 MG/DL (0.55-1.02); GLOMERULAR FILTRATION RATE > 60.0 (>45); GLUCOSE, FASTING 169 MG/DL (80-110); POTASSIUM SERUM 4.2 MEQ/L (3.5-5.1); SODIUM LEVEL 142 MEQ/L (136-145)
[2017-03-04 03:37] LABS: ALBUMIN 3.7 GM/DL (3.2-5.2); ALKALINE PHOSPHATASE 87 U/L (45-117); BILIRUBIN,TOTAL 0.4 MG/DL (0.2-1.0); TOTAL PROTEIN 7.4 GM/DL (6.4-8.2)
== END ==
LOC: SKLAB5 02:54
DX: J44.9 Chronic obstructive pulmonary disease, unspecified (principal); K21.9 Gastro-esophageal reflux disease without esophagitis; E11.9 Type 2 diabetes mellitus without complications; Z79.899 Other long term (current) drug therapy
CPT/HCPCS: 80053

== ENCOUNTER → 2017-03-10 | Outpatient (REF) | payer MEDICARE, MEDICAID ==
[2017-03-10 09:30] LABS: ANION GAP 5 MEQ/L (8-16); BLOOD UREA NITROGEN 6 MG/DL (7-18); CALCIUM LEVEL 8.3 MG/DL (8.8-10.2); CARBON DIOXIDE LEVEL 33 MEQ/L (21-32); CHLORIDE LEVEL 108 MEQ/L (98-107); CREATININE FOR GFR 0.19 MG/DL (0.55-1.02); GLOMERULAR FILTRATION RATE > 60.0 (>45); GLUCOSE, FASTING 83 MG/DL (80-110); POTASSIUM SERUM 3.5 MEQ/L (3.5-5.1); SODIUM LEVEL 146 MEQ/L (136-145)
== END ==
LOC: SKLAB5 07:18
DX: E86.0 Dehydration (principal)
CPT/HCPCS: 36415

== ENCOUNTER → 2017-03-25 | Outpatient (REF) | payer MEDICARE, MEDICAID ==
[2017-03-25 16:14] LABS: APPEARANCE, URINE HAZY (CLEAR); BACTERIA, URINE AUTO 1+ (NEGATIVE); BILIRUBIN, URINE AUTO NEGATIVE (NEGATIVE); BLOOD, URINE BLOOD NEGATIVE (NEGATIVE); COLOR, URINE YELLOW (YELLOW); GLUCOSE, URINE (UA) AUTO NEGATIVE (NEGATIVE); KETONE, URINE AUTO NEGATIVE (NEGATIVE); LEUKOCYTE ESTERASE, URINE AUTO 3+ (NEGATIVE); NITRITE, URINE AUTO POSITIVE (NEGATIVE); PROTEIN, URINE AUTO NEGATIVE (NEGATIVE); RBC, URINE AUTO 3 /HPF (0-3); SPECIFIC GRAVITY URINE AUTO 1.012 (1.002-1.035); SQUAMOUS EPITHELIAL CELL UR AU 0 /HPF (0-6); UROBILINOGEN, URINE AUTO 0.2 mg/dL (0.0-2.0); WBC, URINE AUTO 119 /HPF (0-3)
== END ==
LOC: SKLAB5 15:16
DX: R31.9 Hematuria, unspecified (principal)
CPT/HCPCS: 81001

== ENCOUNTER → 2017-04-07 | Outpatient (REF) | payer MEDICARE, MEDICAID ==
[2017-04-07 08:32] LABS: HEMATOCRIT 39.8 % (36.0-47.0); HEMOGLOBIN 12.5 g/dl (12.0-16.0); MEAN CORPUSCULAR HEMOGLOBIN 25.1 pg (27.0-33.0); MEAN CORPUSCULAR HGB CONC 31.4 g/dl (32.0-36.5); MEAN CORPUSCULAR VOLUME 79.8 fl (80.0-96.0); PLATELET COUNT, AUTOMATED 231 10^3/uL (150-450); RED BLOOD COUNT 4.99 10^6/uL (4.00-5.40); RED CELL DISTRIBUTION WIDTH 14.6 % (11.5-14.5); WHITE BLOOD COUNT 7.7 10^3/uL (4.0-10.0)
[2017-04-07 08:47] LABS: ANION GAP 4 MEQ/L (8-16); BLOOD UREA NITROGEN 14 MG/DL (7-18); CALCIUM LEVEL 8.6 MG/DL (8.8-10.2); CARBON DIOXIDE LEVEL 32 MEQ/L (21-32); CHLORIDE LEVEL 106 MEQ/L (98-107); CREATININE FOR GFR 0.28 MG/DL (0.55-1.30); GLOMERULAR FILTRATION RATE > 60.0 (>45); GLUCOSE, FASTING 81 MG/DL (70-100); POTASSIUM SERUM 3.9 MEQ/L (3.5-5.1); SODIUM LEVEL 142 MEQ/L (136-145)
== END ==
LOC: SKLAB5 07:45
DX: I10 Essential (primary) hypertension (principal); R56.9 Unspecified convulsions
CPT/HCPCS: 36415

== ENCOUNTER 2017-04-26 08:56 | Outpatient (CLI) | payer MEDICARE, MEDICAID ==
[2017-04-26] MEDS: IMMUNE GLOBULIN 10% 20GM 200ML 20 GM in APPROPRIATE DILUENT 1 EA IV (09:34)
[2017-04-26] MEDS: IMMUNE GLOBULIN 10% 10GM 100ML 10 GM in APPROPRIATE DILUENT 1 EA IV (09:39)
[2017-04-26] MEDS: IMMUNE GLOBULIN 10% 5GM 5 GM in APPROPRIATE DILUENT 1 EA IV (09:40)
[2017-04-26] MEDS: SENOKOT S TAB PO (12:03)
[2017-04-26] MEDS: BACLOFEN 10 MG TAB PO (12:04)
== END 2017-04-26 12:40 | disposition home or self-care (01) ==
LOC: M INFU 08:56
DX: G35 Multiple sclerosis (principal); Z79.899 Other long term (current) drug therapy; Z88.0 Allergy status to penicillin; Z88.2 Allergy status to sulfonamides; Z88.1 Allergy status to other antibiotic agents
CPT/HCPCS: 96365

== ENCOUNTER → 2017-05-05 | Outpatient (REF) | payer MEDICARE, MEDICAID ==
[2017-05-05 07:59] LABS: HEMATOCRIT 39.3 % (36.0-47.0); HEMOGLOBIN 12.2 g/dl (12.0-16.0); MEAN CORPUSCULAR HEMOGLOBIN 24.8 pg (27.0-33.0); MEAN CORPUSCULAR VOLUME 79.9 fl (80.0-96.0); PLATELET COUNT, AUTOMATED 246 10^3/uL (150-450); RED BLOOD COUNT 4.92 10^6/uL (4.00-5.40); RED CELL DISTRIBUTION WIDTH 15.6 % (11.5-14.5); WHITE BLOOD COUNT 9.3 10^3/uL (4.0-10.0)
[2017-05-05 08:25] LABS: ANION GAP 5 MEQ/L (8-16); BLOOD UREA NITROGEN 12 MG/DL (7-18); CALCIUM LEVEL 8.4 MG/DL (8.8-10.2); CARBON DIOXIDE LEVEL 33 MEQ/L (21-32); CHLORIDE LEVEL 105 MEQ/L (98-107); CREATININE FOR GFR 0.31 MG/DL (0.55-1.30); GLOMERULAR FILTRATION RATE > 60.0 (>45); GLUCOSE, FASTING 76 MG/DL (70-100); POTASSIUM SERUM 4.1 MEQ/L (3.5-5.1); SODIUM LEVEL 143 MEQ/L (136-145)
== END ==
LOC: SKLAB5 07:20
DX: D64.9 Anemia, unspecified (principal); G35 Multiple sclerosis
CPT/HCPCS: 36415

== ENCOUNTER 2017-05-24 09:11 | Outpatient (CLI) | payer MEDICARE, MEDICAID ==
[2017-05-24] MEDS: IMMUNE GLOBULIN 10% 20GM 200ML 20 GM in APPROPRIATE DILUENT 1 EA IV (09:40)
[2017-05-24] MEDS: IMMUNE GLOBULIN 10% 10GM 100ML 10 GM in APPROPRIATE DILUENT 1 EA IV (09:50)
[2017-05-24] MEDS: IMMUNE GLOBULIN 10% 5GM 5 GM in APPROPRIATE DILUENT 1 EA IV (09:51)
[2017-05-24] MEDS: SENOKOT S TAB PO (12:21)
[2017-05-24] MEDS: BACLOFEN 10 MG TAB PO (12:21)
== END 2017-05-24 13:00 | disposition home or self-care (01) ==
LOC: M INFU 09:11
DX: G35 Multiple sclerosis (principal); Z88.2 Allergy status to sulfonamides; Z88.1 Allergy status to other antibiotic agents; Z88.0 Allergy status to penicillin
CPT/HCPCS: J1569

== ENCOUNTER 2017-06-20 09:11 | Outpatient (CLI) | payer MEDICARE, MEDICAID ==
[2017-06-20] MEDS: IMMUNE GLOBULIN 10% 20GM 200ML 20 GM in APPROPRIATE DILUENT 1 EA IV (09:38)
[2017-06-20] MEDS: IMMUNE GLOBULIN 10% 10GM 100ML 10 GM in APPROPRIATE DILUENT 1 EA IV (09:40)
[2017-06-20] MEDS: IMMUNE GLOBULIN 10% 5GM 5 GM in APPROPRIATE DILUENT 1 EA IV (09:41)
[2017-06-20] MEDS: SENOKOT S TAB PO (12:24)
[2017-06-20] MEDS: BACLOFEN 10 MG TAB PO (12:25)
== END 2017-06-20 13:15 | disposition home or self-care (01) ==
LOC: M INFU 09:11
DX: G35 Multiple sclerosis (principal); D64.9 Anemia, unspecified; K21.9 Gastro-esophageal reflux disease without esophagitis; F32.9 Major depressive disorder, single episode, unspecified; E11.9 Type 2 diabetes mellitus without complications; Z79.899 Other long term (current) drug therapy; Z88.0 Allergy status to penicillin; Z88.2 Allergy status to sulfonamides
CPT/HCPCS: J1569

== ENCOUNTER 2017-07-18 07:51 | Outpatient (CLI) | payer MEDICARE, MEDICAID ==
[2017-07-18] MEDS: IMMUNE GLOBULIN 10% 10GM 100ML 30 GM in APPROPRIATE DILUENT 1 EA IV (08:36)
[2017-07-18] MEDS: IMMUNE GLOBULIN 10% 5GM 5 GM in APPROPRIATE DILUENT 1 EA IV (08:37)
[2017-07-18] MEDS: BACLOFEN 10 MG TAB PO (11:19)
== END 2017-07-18 11:45 | disposition home or self-care (01) ==
LOC: M INFU 07:51
DX: D64.9 Anemia, unspecified (principal); G35 Multiple sclerosis; I10 Essential (primary) hypertension; K21.9 Gastro-esophageal reflux disease without esophagitis; F32.9 Major depressive disorder, single episode, unspecified; Z79.84 Long term (current) use of oral hypoglycemic drugs; Z79.891 Long term (current) use of opiate analgesic; Z79.899 Other long term (current) drug therapy; Z88.0 Allergy status to penicillin; Z88.1 Allergy status to other antibiotic agents; Z88.8 Allergy status to other drugs, medicaments and biological substances
CPT/HCPCS: J1569

== ENCOUNTER → 2017-07-20 | Outpatient (REF) | payer MEDICARE, MEDICAID ==
[2017-07-20 09:31] LABS: ALBUMIN 3.2 GM/DL (3.2-5.2); ALBUMIN/GLOBULIN RATIO 0.73 (1.00-1.93); ALKALINE PHOSPHATASE 83 U/L (45-117); ALT/SGPT 17 U/L (12-78); AST/SGOT 13 U/L (7-37); BILIRUBIN,DIRECT < 0.1 MG/DL (0.0-0.2); BILIRUBIN,TOTAL 0.2 MG/DL (0.2-1.0); TOTAL PROTEIN 7.6 GM/DL (6.4-8.2)
== END ==
LOC: SKLAB5 07:43
DX: R10.9 Unspecified abdominal pain (principal)
CPT/HCPCS: 80076

== ENCOUNTER → 2017-07-21 | Outpatient (CLI) | payer MEDICARE, MEDICAID | LOC: M RAD 10:02 | DX: R10.9 Unspecified abdominal pain (principal) | CPT/HCPCS: 76705 ==

== ENCOUNTER → 2017-07-25 | Outpatient (REF) | payer MEDICARE, MEDICAID | LOC: SKLAB5 11:17 | DX: S82.845A Nondisplaced bimalleolar fracture of left lower leg, initial encounter for closed fracture (principal); R60.9 Edema, unspecified | CPT/HCPCS: 73610 ==

== ENCOUNTER → 2017-08-14 | Outpatient (REF) | payer MEDICARE, MEDICAID | LOC: SKLAB5 08:23 | DX: G35 Multiple sclerosis (principal) ==

== ENCOUNTER → 2017-08-14 | Outpatient (REF) | payer MEDICARE, MEDICAID ==
[2017-08-14 07:21] LABS: BASO # 0.1 10^3/uL (0.0-0.2); BASO % 0.7 % (0.0-1.0); EOS # 0.5 10^3/uL (0.0-0.50); EOS % 5.9 % (0.0-3.0); HEMOGLOBIN 13.2 g/dl (12.0-15.5); IMMATURE GRANULOCYTE % 0.4 % (0-3.0); LYMPH # 3.5 10^3/uL (1.5-4.5); LYMPH % 45.6 % (24.0-44.0); MEAN CORPUSCULAR HEMOGLOBIN 25.7 pg (27.0-33.0); MEAN CORPUSCULAR HGB CONC 32.2 g/dl (32.0-36.5); MEAN CORPUSCULAR VOLUME 79.8 fl (80.0-96.0); MONO # 0.6 10^3/uL (0.0-0.8); NEUTROPHILS % 39.4 % (36.0-66.0); PLATELET COUNT, AUTOMATED 247 10^3/uL (150-450); RED BLOOD COUNT 5.14 10^6/uL (4.00-5.40); RED CELL DISTRIBUTION WIDTH 14.5 % (11.5-14.5); WHITE BLOOD COUNT 7.6 10^3/uL (4.0-10.0)
[2017-08-14 07:41] LABS: ANION GAP 4 MEQ/L (8-16); BLOOD UREA NITROGEN 13 MG/DL (7-18); CALCIUM LEVEL 8.5 MG/DL (8.8-10.2); CARBON DIOXIDE LEVEL 31 MEQ/L (21-32); CHLORIDE LEVEL 108 MEQ/L (98-107); CREATININE FOR GFR 0.34 MG/DL (0.55-1.30); GLOMERULAR FILTRATION RATE > 60.0 (>45); GLUCOSE, FASTING 85 MG/DL (70-100); POTASSIUM SERUM 4.4 MEQ/L (3.5-5.1); SODIUM LEVEL 143 MEQ/L (136-145)
[2017-08-15 08:53] LABS: VITAMIN B12 LEVEL 241 PG/ML (247-911)
== END ==
LOC: SKLAB5 02:34
DX: E11.9 Type 2 diabetes mellitus without complications (principal)
CPT/HCPCS: 82607

== ENCOUNTER 2017-08-15 10:44 | Outpatient (CLI) | payer MEDICARE, MEDICAID ==
[2017-08-15] MEDS: IMMUNE GLOBULIN 10% 20GM 200ML 20 GM in APPROPRIATE DILUENT 1 EA IV (11:12)
[2017-08-15] MEDS: IMMUNE GLOBULIN 10% 10GM 100ML 10 GM in APPROPRIATE DILUENT 1 EA IV (11:13)
[2017-08-15] MEDS: IMMUNE GLOBULIN 10% 5GM 5 GM in APPROPRIATE DILUENT 1 EA IV (11:14)
[2017-08-15] MEDS: BACLOFEN 10 MG TAB PO (12:09)
[2017-08-15] MEDS: SENNA 8.6 MG TAB (SENOKOT) PO (12:10)
== END 2017-08-15 14:30 | disposition home or self-care (01) ==
LOC: M INFU 10:44
DX: G35 Multiple sclerosis (principal); Z88.1 Allergy status to other antibiotic agents; Z88.0 Allergy status to penicillin; Z88.2 Allergy status to sulfonamides; Z79.84 Long term (current) use of oral hypoglycemic drugs; Z79.899 Other long term (current) drug therapy
CPT/HCPCS: J1569

== ENCOUNTER → 2017-09-15 | Outpatient (CLI) | payer MEDICARE, MEDICAID | LOC: M SMT 13:18 | DX: N20.0 Calculus of kidney (principal); Z98.890 Other specified postprocedural states | CPT/HCPCS: 74018; G0463 ==

== ENCOUNTER 2017-09-20 11:08 | Outpatient (CLI) | payer MEDICARE, MEDICAID ==
[2017-09-20] MEDS: IMMUNE GLOBULIN 10% 5GM 5 GM in APPROPRIATE DILUENT 1 EA IV (10:10)
[2017-09-20] MEDS: IMMUNE GLOBULIN 10% 20GM 200ML 20 GM in APPROPRIATE DILUENT 1 EA IV (11:28)
[2017-09-20] MEDS: IMMUNE GLOBULIN 10% 10GM 100ML 10 GM in APPROPRIATE DILUENT 1 EA IV (11:29)
[2017-09-20] MEDS: SENOKOT S TAB PO (11:32)
[2017-09-20] MEDS: BACLOFEN 10 MG TAB PO (11:32)
== END 2017-09-20 14:30 | disposition home or self-care (01) ==
LOC: M INFU 11:08
DX: G35 Multiple sclerosis (principal); Z79.899 Other long term (current) drug therapy; Z79.84 Long term (current) use of oral hypoglycemic drugs; Z88.1 Allergy status to other antibiotic agents; Z88.2 Allergy status to sulfonamides; Z88.0 Allergy status to penicillin
CPT/HCPCS: J1569

== ENCOUNTER → 2017-09-29 | Outpatient (REF) | payer MEDICARE, MEDICAID | LOC: SKLAB5 13:15 | DX: R07.89 Other chest pain (principal) | CPT/HCPCS: 71101 ==

== ENCOUNTER → 2017-10-06 | Outpatient (REF) | payer MEDICARE, MEDICAID ==
[2017-10-06 09:11] LABS: ESTIMATED AVERAGE GLUCOSE 105 MG/DL (60-110); HEMOGLOBIN A1c 5.3 %
== END ==
LOC: SKLAB5 09:23
DX: E11.9 Type 2 diabetes mellitus without complications (principal)
CPT/HCPCS: 83036

== ENCOUNTER 2017-10-18 08:03 | Outpatient (CLI) | payer MEDICARE, MEDICAID ==
[2017-10-18] MEDS: IMMUNE GLOBULIN 10% 10GM 100ML 10 GM in APPROPRIATE DILUENT 1 EA IV (08:58)
[2017-10-18] MEDS: IMMUNE GLOBULIN 10% 5GM 5 GM in APPROPRIATE DILUENT 1 EA IV (08:59)
[2017-10-18] MEDS: IMMUNE GLOBULIN 10% 20GM 200ML 20 GM in APPROPRIATE DILUENT 1 EA IV (09:00)
[2017-10-18] MEDS: BACLOFEN 10 MG TAB PO (13:03)
[2017-10-18] MEDS: SENOKOT S TAB PO (13:03)
== END 2017-10-18 13:45 | disposition home or self-care (01) ==
LOC: M INFU 08:03
DX: G35 Multiple sclerosis (principal); Z88.1 Allergy status to other antibiotic agents; Z88.0 Allergy status to penicillin; Z88.2 Allergy status to sulfonamides; Z79.84 Long term (current) use of oral hypoglycemic drugs; Z79.899 Other long term (current) drug therapy
CPT/HCPCS: J1569

== ENCOUNTER → 2017-11-10 | Outpatient (REF) | payer MEDICARE, MEDICAID ==
[2017-11-10 08:34] LABS: HEMATOCRIT 39.7 % (36.0-47.0); HEMOGLOBIN 12.3 g/dl (12.0-15.5); MEAN CORPUSCULAR HEMOGLOBIN 25.5 pg (27.0-33.0); MEAN CORPUSCULAR VOLUME 82.2 fl (80.0-96.0); PLATELET COUNT, AUTOMATED 234 10^3/uL (150-450); RED BLOOD COUNT 4.83 10^6/uL (4.00-5.40); RED CELL DISTRIBUTION WIDTH 15.3 % (11.5-14.5); WHITE BLOOD COUNT 7.7 10^3/uL (4.0-10.0)
[2017-11-10 09:29] LABS: ANION GAP 9 MEQ/L (8-16); BLOOD UREA NITROGEN 9 MG/DL (7-18); CALCIUM LEVEL 8.9 MG/DL (8.8-10.2); CARBON DIOXIDE LEVEL 31 MEQ/L (21-32); CHLORIDE LEVEL 105 MEQ/L (98-107); CHOLESTEROL LEVEL 201 MG/DL (<200); GLOMERULAR FILTRATION RATE > 60.0 (>45); GLUCOSE, FASTING 82 MG/DL (70-100); HDL CHOLESTEROL 33 MG/DL (>40); LDL CHOLESTEROL 119.2 MG/DL (<100); NON-HDL-C 168 MG/DL; POTASSIUM SERUM 4.3 MEQ/L (3.5-5.1); SODIUM LEVEL 145 MEQ/L (136-145); TRIGLYCERIDES LEVEL 244 MG/DL (<150)
== END ==
LOC: SKLAB5 09:36
DX: G35 Multiple sclerosis (principal); D64.9 Anemia, unspecified; E78.5 Hyperlipidemia, unspecified
CPT/HCPCS: 84443

== ENCOUNTER 2017-11-15 08:08 | Outpatient (CLI) | payer MEDICARE, MEDICAID ==
[2017-11-15] MEDS ORDERED: SENOKOT S TAB PO (09:00)
[2017-11-15] MEDS ORDERED: BACLOFEN 10 MG TAB PO (09:00)
[2017-11-15] MEDS: IMMUNE GLOBULIN 10% 10GM 100ML 10 GM in APPROPRIATE DILUENT 1 EA IV (09:02)
[2017-11-15] MEDS: IMMUNE GLOBULIN 10% 5GM 5 GM in APPROPRIATE DILUENT 1 EA IV (09:03)
[2017-11-15] MEDS: IMMUNE GLOBULIN 10% 20GM 200ML 20 GM in APPROPRIATE DILUENT 1 EA IV (09:04)
== END 2017-11-15 13:15 | disposition home or self-care (01) ==
LOC: M INFU 08:08
DX: G35 Multiple sclerosis (principal); G43.909 Migraine, unspecified, not intractable, without status migrainosus; J44.9 Chronic obstructive pulmonary disease, unspecified; E78.5 Hyperlipidemia, unspecified; I10 Essential (primary) hypertension; F32.9 Major depressive disorder, single episode, unspecified; R01.1 Cardiac murmur, unspecified; E11.9 Type 2 diabetes mellitus without complications; Z79.84 Long term (current) use of oral hypoglycemic drugs; Z79.899 Other long term (current) drug therapy; Z88.8 Allergy status to other drugs, medicaments and biological substances; Z86.19 Personal history of other infectious and parasitic diseases
CPT/HCPCS: J1569

== ENCOUNTER → 2017-12-02 | Outpatient (CLI) | payer MEDICARE, MEDICAID | LOC: M RAD 10:16 | DX: Z12.31 Encounter for screening mammogram for malignant neoplasm of breast (principal) ==

== ENCOUNTER 2018-01-12 08:35 | Outpatient (CLI) | payer MEDICARE, MEDICAID ==
[2018-01-12] MEDS: IMMUNE GLOBULIN 10% 20GM 200ML 20 GM in APPROPRIATE DILUENT 1 EA IV (09:10)
[2018-01-12] MEDS: IMMUNE GLOBULIN 10% 10GM 100ML 10 GM in APPROPRIATE DILUENT 1 EA IV (09:16)
[2018-01-12] MEDS: IMMUNE GLOBULIN 10% 5GM 5 GM in APPROPRIATE DILUENT 1 EA IV (09:17)
[2018-01-12] MEDS: BACLOFEN 10 MG TAB PO (12:07)
[2018-01-12] MEDS: SENOKOT S TAB PO (12:07)
== END 2018-01-12 12:50 | disposition home or self-care (01) ==
LOC: M INFU 08:35
DX: G35 Multiple sclerosis (principal)
CPT/HCPCS: J1569

== ENCOUNTER → 2018-01-20 | Outpatient (REF) | payer MEDICARE, MEDICAID ==
[2018-01-20 09:35] LABS: HEMATOCRIT 41.1 % (36.0-47.0); HEMOGLOBIN 13.1 g/dl (12.0-15.5); MEAN CORPUSCULAR HEMOGLOBIN 25.4 pg (27.0-33.0); MEAN CORPUSCULAR HGB CONC 31.9 g/dl (32.0-36.5); MEAN CORPUSCULAR VOLUME 79.7 fl (80.0-96.0); PLATELET COUNT, AUTOMATED 231 10^3/uL (150-450); RED BLOOD COUNT 5.16 10^6/uL (4.00-5.40); RED CELL DISTRIBUTION WIDTH 14.6 % (11.5-14.5); WHITE BLOOD COUNT 15.8 10^3/uL (4.0-10.0)
== END ==
LOC: SKLAB5 08:57
DX: R11.10 Vomiting, unspecified (principal)
CPT/HCPCS: 85027

== ENCOUNTER → 2018-01-23 | Outpatient (REF) | payer MEDICARE, MEDICAID ==
[2018-01-23 08:18] LABS: HEMATOCRIT 36.7 % (36.0-47.0); HEMOGLOBIN 11.6 g/dl (12.0-15.5); MEAN CORPUSCULAR HEMOGLOBIN 25.7 pg (27.0-33.0); MEAN CORPUSCULAR HGB CONC 31.6 g/dl (32.0-36.5); MEAN CORPUSCULAR VOLUME 81.4 fl (80.0-96.0); PLATELET COUNT, AUTOMATED 219 10^3/uL (150-450); RED BLOOD COUNT 4.51 10^6/uL (4.00-5.40); RED CELL DISTRIBUTION WIDTH 14.5 % (11.5-14.5); WHITE BLOOD COUNT 7.3 10^3/uL (4.0-10.0)
== END ==
LOC: SKLAB5 07:53
DX: R11.0 Nausea (principal)
CPT/HCPCS: 85027

== ENCOUNTER → 2018-02-09 | Outpatient (REF) | payer MEDICARE, MEDICAID ==
[2018-02-09 08:02] LABS: MEAN CORPUSCULAR HEMOGLOBIN 25.8 pg (27.0-33.0); MEAN CORPUSCULAR HGB CONC 31.6 g/dl (32.0-36.5); MEAN CORPUSCULAR VOLUME 81.7 fl (80.0-96.0); PLATELET COUNT, AUTOMATED 222 10^3/uL (150-450); RED BLOOD COUNT 4.65 10^6/uL (4.00-5.40); RED CELL DISTRIBUTION WIDTH 14.5 % (11.5-14.5); WHITE BLOOD COUNT 7.5 10^3/uL (4.0-10.0)
== END ==
LOC: SKLAB5 07:56
DX: D64.9 Anemia, unspecified (principal)
CPT/HCPCS: 85027

== ENCOUNTER 2018-02-10 07:40 | Outpatient (CLI) | payer MEDICARE, MEDICAID ==
[2018-02-10] MEDS: IMMUNE GLOBULIN 10% 20 GM in APPROPRIATE DILUENT 1 EA IV (08:30)
[2018-02-10] MEDS: IMMUNE GLOBULIN 10% 10 GM in APPROPRIATE DILUENT 1 EA IV (09:25)
[2018-02-10] MEDS: IMMUNE GLOBULIN 10% 5 GM in APPROPRIATE DILUENT 1 EA IV (09:27)
[2018-02-10] MEDS: SENOKOT S TAB PO ×2 (11:56)
[2018-02-10] MEDS: BACLOFEN 10 MG TAB PO ×2 (11:56)
== END 2018-02-10 12:30 | disposition home or self-care (01) ==
LOC: M INFU 07:40
DX: G35 Multiple sclerosis (principal); Z88.1 Allergy status to other antibiotic agents; Z88.2 Allergy status to sulfonamides
CPT/HCPCS: J1459

== ENCOUNTER 2018-03-10 15:40 | Inpatient (IN) | payer MEDICARE, MEDICAID ==
[~2018-03-10] VITALS: Ht 170.2 cm; Wt 75.7 kg
[~2018-03-10 15:40] MED LIST changes: -ASPI81TA24 PO; -BIOF4GEL2 TOP; -CYAN1000VL IM; -FLON1SPR NARES; -GLIM1TAB PO; -GLIP1TAB49 PO; +GLIP5TAB20 PO; -LOPE2CAP PO; -LOSA25TA33 PO; -LOSA50TA73 PO; +LOSA50TA88 PO; +MILK120011 PO; -MILK12002 PO; -MORP30TASA PO; -OMEP20CA3 PO; -PERCOCET PO; -PROM25SU2 PR; -SIMV10TA2 PO
[2018-03-10] MEDS ORDERED: PROM25SU2 PR (16:53)
[2018-03-10] MEDS ORDERED: BIOF4GEL2 TOP (16:53)
[2018-03-10] MEDS ORDERED: GLIM1TAB PO (16:53)
[2018-03-10] MEDS ORDERED: CYAN1000VL IM (16:53)
[2018-03-10] MEDS ORDERED: METF10004 PO (16:53)
[2018-03-10] MEDS ORDERED: LOPE2CAP PO (16:53)
[2018-03-10] MEDS ORDERED: OMEP20CA3 PO (16:53)
[2018-03-10] MEDS ORDERED: ASPI81TA24 PO (16:53)
[2018-03-10] MEDS ORDERED: FLON1SPR NARES (16:53)
[2018-03-10] MEDS ORDERED: SIMV10TA2 PO (16:53)
[2018-03-10] MEDS ORDERED: LOSA25TA14 PO (16:53)
[2018-03-10 16:57] LABS: BASO # 0.1 10^3/uL (0.0-0.2); BASO % 0.6 % (0.0-1.0); EOS # 0.6 10^3/uL (0.0-0.50); EOS % 5.7 % (0.0-3.0); HEMATOCRIT 38.9 % (36.0-47.0); HEMOGLOBIN 12.5 g/dl (12.0-15.5); MEAN CORPUSCULAR HEMOGLOBIN 26.1 pg (27.0-33.0); MEAN CORPUSCULAR HGB CONC 32.1 g/dl (32.0-36.5); MEAN CORPUSCULAR VOLUME 81.2 fl (80.0-96.0); MONO # 0.8 10^3/uL (0.0-0.8); MONO % 7.5 % (0.0-5.0); NEUTROPHILS # 6.1 10^3/uL (1.8-7.7); NEUTROPHILS % 57.6 % (36.0-66.0); PLATELET COUNT, AUTOMATED 219 10^3/uL (150-450); RED BLOOD COUNT 4.79 10^6/uL (4.00-5.40); WHITE BLOOD COUNT 10.6 10^3/uL (4.0-10.0)
--- NOTE | 2018-03-10 17:06 | REP ---
Oral chest x-ray: Sitting AP view: History: Preop. Comparison chest x-ray is from September 29, 2017. Findings: The right hemidiaphragm remains somewhat elevated. There are clips in right upper quadrant of the abdomen. There is linear plate-like atelectasis in the right base and some linear fibrosis is seen versus fissural thickening unchanged. Lung stout are otherwise well inflated and clear. Heart is not enlarged. There is advanced diffuse osteopenia. Impression: Elevated right hemidiaphragm. Discoid atelectasis right base. Otherwise no acute disease. Electronically Signed by Maxi Mcnulty MD 03/10/2018 07:25 P
--- NOTE | 2018-03-10 17:08 | REP ---
CT study left hip without contrast: History: Known fracture left hip. Request by the attending orthopedist. Further evaluation. Comparison left hip radiographs are from earlier today. CT findings: There is profound diffuse osteopenia. An impacted subcapital femoral neck fracture is again seen as noted radiographically. There is approximately 5 mm of impaction. No other displacement is seen. No other fracture is seen. There are is mild osteoarthritic acetabular spurring. No evidence of loose body. Impression: Impacted but otherwise not displaced subcapital fracture of the left femoral neck. Electronically Signed by Maxi Mcnulty MD 03/10/2018 07:25 P
[2018-03-10 17:09] LABS: INR 0.89; PROTHROMBIN TIME 12.2 SECONDS (12.1-14.4)
[2018-03-10 17:10] LABS: PARTIAL THROMBOPLASTIN TIME 29.2 SECONDS (25.4-37.6)
[2018-03-10 17:18] LABS: BLOOD UREA NITROGEN 14 MG/DL (7-18); CALCIUM LEVEL 8.1 MG/DL (8.8-10.2); CARBON DIOXIDE LEVEL 34 MEQ/L (21-32); CHLORIDE LEVEL 102 MEQ/L (98-107); CPK CREATINE PHOSPHOKINASE 61 U/L (26-192); CREATININE FOR GFR 0.38 MG/DL (0.55-1.30); GLOMERULAR FILTRATION RATE > 60.0 (>45); GLUCOSE, FASTING 103 MG/DL (70-100); MB/CK RELATIVE INDEX 3.28 (< OR =4); POTASSIUM SERUM 3.9 MEQ/L (3.5-5.1); SODIUM LEVEL 143 MEQ/L (136-145); TROPONIN I 0.29 NG/ML (< 0.10)
--- NOTE | 2018-03-10 17:18 | ECGEPIP ---
Stationary ECG Study [facility] - ED Test Date: 2018-03-10 Pat Name: JAISON DAMON Department: Room: - Gender: F Wrap Yarn Sorter: : 1950 Requested By: Hany Coppola Order Number: [id number] Reading MD: Ana Worley Measurements Intervals [place] Rate: 91 P: 45 CO: 134 QRS: -1 QRSD: 103 T: 51 QT: 358 QTc: 441 Interpretive Statements SINUS RHYTHM POSSIBLE RIGHT VENTRICULAR CONDUCTION DELAY EARLY R PROGRESSION POSSIBLE LATERAL MYOCARDIAL INFARCTION, PROBABLY OLD DECREASED RATE 06/02/16 Electronically Signed On 03-10-2018 17:18:19 EST by Ana Worley
[2018-03-10 19:54] LABS: MB/CK RELATIVE INDEX 4.04 (< OR =4); TROPONIN I 0.32 NG/ML (< 0.10)
[2018-03-10] MEDS ORDERED: MORPHINE 4 MG/ML 1ML VIAL/SYRINGE (J2270) IV PRN (20:15)
[2018-03-10] MEDS ORDERED: ONDANSETRON 4MG/2ML VIAL (J2405) IV ONE (20:15)
[2018-03-10] MEDS ORDERED: ENOXAPARIN 40 MG/0.4 ML SYRINGE (J1650) SC ONE (20:30)
[2018-03-10] MEDS ORDERED: ACETAMINOPHEN TAB 650MG DOSE (2X325MG) PO PRN (23:00)
[2018-03-10] MEDS ORDERED: PERCOCET 5MG/325MG TAB PO PRN (23:00)
[2018-03-10] MEDS ORDERED: BISACODYL 5 MG TAB PO PRN (23:00)
[2018-03-10 23:38] LABS: BASO # 0.1 10^3/uL (0.0-0.2); BASO % 0.5 % (0.0-1.0); EOS # 0.6 10^3/uL (0.0-0.50); HEMATOCRIT 37.6 % (36.0-47.0); HEMOGLOBIN 11.9 g/dl (12.0-15.5); LYMPH # 2.9 10^3/uL (1.5-4.5); LYMPH % 29.6 % (24.0-44.0); MEAN CORPUSCULAR HEMOGLOBIN 25.8 pg (27.0-33.0); MEAN CORPUSCULAR HGB CONC 31.6 g/dl (32.0-36.5); MEAN CORPUSCULAR VOLUME 81.4 fl (80.0-96.0); MONO # 0.6 10^3/uL (0.0-0.8); MONO % 6.2 % (0.0-5.0); NEUTROPHILS # 5.6 10^3/uL (1.8-7.7); PLATELET COUNT, AUTOMATED 215 10^3/uL (150-450); RED BLOOD COUNT 4.62 10^6/uL (4.00-5.40); WHITE BLOOD COUNT 9.8 10^3/uL (4.0-10.0)
[2018-03-10 23:55] LABS: BLOOD UREA NITROGEN 10 MG/DL (7-18); CALCIUM LEVEL 8.2 MG/DL (8.8-10.2); CARBON DIOXIDE LEVEL 33 MEQ/L (21-32); CHLORIDE LEVEL 102 MEQ/L (98-107); CREATININE FOR GFR 0.39 MG/DL (0.55-1.30); GLOMERULAR FILTRATION RATE > 60.0 (>45); GLUCOSE, FASTING 148 MG/DL (70-100); MAGNESIUM LEVEL 1.7 MG/DL (1.8-2.4); POTASSIUM SERUM 3.8 MEQ/L (3.5-5.1); SODIUM LEVEL 139 MEQ/L (136-145)
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
[2018-03-11] MEDS ORDERED: CALCIUM CARBONATE 500 MG CHEW U/D PO PRN (08:30)
[2018-03-11] MEDS: ASPIRIN 81 MG ENTERIC TAB PO SCH (09:21)
[2018-03-11] MEDS: GABAPENTIN 300 MG CAP PO SCH ×2 (09:21→17:00)
[2018-03-11] MEDS: DULoxetine 30 MG CAP (CYMBALTA) PO SCH ×2 (09:21→20:08)
[2018-03-11] MEDS: ENOXAPARIN 40 MG/0.4 ML SYRINGE (J1650) SC SCH (09:22)
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
[2018-03-11] MEDS: FLUTICASONE PROP 0.05% NASAL SPRAY 16 GM (FLONASE) NARES SCH (10:02)
[2018-03-11] MEDS: BACLOFEN 10 MG TAB PO SCH ×3 (11:47→20:07)
[2018-03-11 15:10] VITALS: BP 132/74
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
[2018-03-11] MEDS: MORPHINE 4 MG/ML 1ML VIAL/SYRINGE (J2270) IV PRN (18:03)
[2018-03-11] MEDS: MORPHINE 15 MG SA TAB PO SCH (20:08)
[2018-03-11 22:00] VITALS: BP 140/84
[2018-03-12] MEDS: GABAPENTIN 100 MG CAP PO SCH (00:43)
[2018-03-12] MEDS: BACLOFEN 10 MG TAB PO SCH ×5 (00:44→20:39)
[2018-03-12] MEDS: MORPHINE 4 MG/ML 1ML VIAL/SYRINGE (J2270) IV PRN ×5 (04:01→22:30)
[2018-03-12 06:00] VITALS: BP 102/52
[2018-03-12 06:02] LABS: BASO % 0.4 % (0.0-1.0); EOS # 0.5 10^3/uL (0.0-0.50); EOS % 5.2 % (0.0-3.0); HEMATOCRIT 35.1 % (36.0-47.0); HEMOGLOBIN 11.3 g/dl (12.0-15.5); LYMPH # 2.7 10^3/uL (1.5-4.5); LYMPH % 27.1 % (24.0-44.0); MEAN CORPUSCULAR HEMOGLOBIN 25.8 pg (27.0-33.0); MEAN CORPUSCULAR HGB CONC 32.2 g/dl (32.0-36.5); MEAN CORPUSCULAR VOLUME 80.1 fl (80.0-96.0); MONO # 0.8 10^3/uL (0.0-0.8); MONO % 7.8 % (0.0-5.0); NEUTROPHILS # 5.9 10^3/uL (1.8-7.7); NEUTROPHILS % 58.9 % (36.0-66.0); PLATELET COUNT, AUTOMATED 221 10^3/uL (150-450); RED BLOOD COUNT 4.38 10^6/uL (4.00-5.40); WHITE BLOOD COUNT 10.1 10^3/uL (4.0-10.0)
[2018-03-12 06:20] LABS: BLOOD UREA NITROGEN 7 MG/DL (7-18); CALCIUM LEVEL 8.2 MG/DL (8.8-10.2); CARBON DIOXIDE LEVEL 32 MEQ/L (21-32); CHLORIDE LEVEL 103 MEQ/L (98-107); CREATININE FOR GFR 0.27 MG/DL (0.55-1.30); GLOMERULAR FILTRATION RATE > 60.0 (>45); GLUCOSE, FASTING 113 MG/DL (70-100); POTASSIUM SERUM 3.8 MEQ/L (3.5-5.1); SODIUM LEVEL 141 MEQ/L (136-145)
[2018-03-12] MEDS: ASPIRIN 81 MG ENTERIC TAB PO SCH (08:26)
[2018-03-12] MEDS: GABAPENTIN 300 MG CAP PO SCH ×2 (08:26→15:34)
[2018-03-12] MEDS: DULoxetine 30 MG CAP (CYMBALTA) PO SCH ×2 (08:27→20:40)
[2018-03-12] MEDS: MORPHINE 15 MG SA TAB PO SCH ×2 (08:27→20:40)
[2018-03-12] MEDS: ENOXAPARIN 40 MG/0.4 ML SYRINGE (J1650) SC SCH (08:34)
[2018-03-12] MEDS: FLUTICASONE PROP 0.05% NASAL SPRAY 16 GM (FLONASE) NARES SCH (09:00)
[2018-03-12 14:00] VITALS: BP 160/47
--- NOTE | 2018-03-12 14:52 | ECHO ---
DATE OF SERVICE: 03/12/2018 REFERRING PROVIDER: Dr. Gemma Hernandez PATIENT LOCATION: Room 4214. REASON FOR THE ECHOCARDIOGRAM: Heart murmur. 2D MEASUREMENTS: IVS: 1.2 cm LV: 3.8 cm LVPW: 1.1 cm LA: 4.3 cm DOPPLER MEASUREMENTS: Peak velocity across the aortic valve: 2.0 m/s Peak velocity across the LVOT: 1.7 m/s Peak gradient across the aortic valve: 16.0 mmHg Mean gradient across the aortic valve: 10.0 mmHg Mitral E: 0.79 Mitral A: 1.0, with a ratio of 0.8 Maximum tricuspid valve velocity: 2.9 m/s 2D COMMENTS: 1. Normal left ventricular size, wall thickness, and normal global left ventricular systolic function. The estimated global left ventricular systolic ejection fraction is 60-65%. 2. Mildly enlarged left atrium. Normal right atrium and right ventricle. 3. The atrial septum appeared to be normal without evidence of defect or shunt. 4. Normal aortic root. 5. Small pericardial effusion noted, without evidence of cardiac tamponade. Mildly calcified aortic valve with minimally restricted leaflet motion. Mildly calcified mitral annulus with normal anterior mitral valve leaflet motion. Normal tricuspid valve and pulmonic valve. The proximal pulmonary artery branches were not well visualized. 6. The inferior vena cava was not well visualized. DOPPLER: It detects mild mitral regurgitation and trace to mild tricuspid regurgitation. The calculated pulmonary artery systolic pressure varies between 40 to 50 mmHg. Abnormal relaxation pattern was noted across the mitral valve leaflets as well as the mitral valve annulus, consistent with a delayed relaxation. IMPRESSION: 1. Normal global left ventricular systolic function. There are features of left ventricular diastolic dysfunction manifested by abnormal relaxation. 2. Aortic valve sclerosis with trivial to minimal aortic stenosis but no aortic regurgitation. 3. Mitral annulus calcification with trace to mild mitral regurgitation, and a mildly dilated left atrium. 4. Trace to mild tricuspid regurgitation, probably moderate pulmonary hypertension. 5. Small pericardial effusion noted, no evidence of cardiac tamponade.
--- NOTE | 2018-03-12 15:50 | ECGEPIP ---
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
--- NOTE | 2018-03-12 21:07 | CR ---
DATE OF SERVICE: 03/11/2018 REFERRING PROVIDER: Dr. Pabon. REASON FOR THE CONSULT: Abnormal serum troponin. HISTORY OF PRESENT ILLNESS: A 67-year-old woman, a resident of the [facility] went [place] [facility] about two days ago and while she was positioning her motorized wheelchair, she could not stop it for some reason and injured her left lower extremity. Because she was having pain, she came to the emergency room (ER) for further evaluation. She was found to have an impacted nondisplaced subcapital fracture of the left femoral neck. Fasting glucose and serum troponin level was done and it revealed a minimally abnormal serum troponin of 0.29. The case was discussed with the ER provider and it was recommended to her and it was recommended to keep her overnight for observation. When I saw Ms. Samia Troy this afternoon in the ER, she was supine in bed and in no acute distress at rest. She denies any chest pain, palpitations, orthopnea or paroxysmal nocturnal dyspnea (PND). She does not walk much, she has a history of multiple sclerosis diagnosed in . There is no cough, hematemesis or fever. There is no nausea, vomiting, diarrhea, melena or hematemesis. She was seen by orthopedist in the ER and conservative management was recommended. 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 There is no history of hyperlipidemia, or severe coronary artery disease, myocardial infarction, congestive heart failure, significant valvular heart disease, cerebrovascular accident, cardiomyopathy, sudden cardiac , kidney disease. PAST SURGICAL HISTORY: Positive for cholecystectomy and she had surgery done in the past for kidney stones. MEDICATIONS: - gabapentin 500 mg by mouth daily - baclofen 20 mg by mouth three times a day - Lovenox 30 mg subcutaneous daily - aspirin 81 mg by mouth daily - duloxetine 30 mg by mouth twice a day - fluticasone nasal spray as needed - calcium carbonate 1000 mg every 4 hours as needed - gabapentin 300 mg by mouth twice a day - Tylenol 650 mg every 4 hours as needed for mild pain or fever - oxycodone 1 tablet every 4 hours as needed for moderate pain - morphine sulfate 2 mg every 2 hours as needed for severe pain - Dulcolax 5 mg as needed for constipation SOCIAL HISTORY: The patient is a resident of the [facility]. She does not smoke. She is a former smoker but stopped many years ago. She denies any ethanol (EtOH) abuse. ALLERGIES: She has allergies to BACITRACIN, ERYTHROMYCIN, PENICILLIN, POLYMYXIN B and SULFA DRUGS. ADVANCED DIRECTIVES: The patient is a FULL CODE. PHYSICAL EXAMINATION: On physical examination, the patient is alert and oriented, in no acute distress at rest. Her vital signs when I saw her revealed a blood pressure of 117/68 with a pulse of 81, respirations 18-20, and her maximum temperature was 98.9 degrees Fahrenheit with an oxygen saturation of 94% - 100% on 2 liters nasal cannula. Examination of the head: Atraumatic. Neck is supple. No jugular venous distention (JVD) or carotid bruits appreciated. The lungs did not reveal any wheezing or crackles. The heart examination revealed normal S1, S2 without gallops. The point of maximal impulse (PMI) is not displaced. There is no rub. I could not appreciate any murmurs. Abdomen is unremarkable. Extremities reveal no significant pedal edema. Neurologic examination was not done. LABORATORIES: A complete blood count (CBC) done on 03/10/2018 revealed a white blood cell (WBC) of 9.8, hemoglobin 11.9, hematocrit 37.6 and platelets 215,000. Basic metabolic panel (BMP) done on 03/10/2018 revealed a sodium of 139, potassium 3.8, chloride 102, CO2 33, BUN 10, creatinine 0.39, glomerular filtration rate (GFR) more than 60, fasting glucose 148, and calcium 8.2. Serum magnesium is 1.7. Serial troponin is 0.29, 0.32, and 0.30 which would be number 1 to number 3. PT on admission was 12.2 with an INR of 0.89 and partial thromboplastin time (PTT) of 29.2. Electrocardiogram on admission revealed normal sinus rhythm with a right ventricular conduction delay. No manifestation of infarct. Extremity CT on 03/20/2018 revealed an impacted nondisplaced subcapital fracture of the left femoral neck. Chest x-ray on 03/10/2018 revealed elevated right hemidiaphragm, displayed atelectasis, otherwise no acute disease process. No cardiomegaly. No manifestation of heart failure. There was diffuse osteopenia. IMPRESSION: Abnormal serum troponin, nondiagnostic in view of the pattern. The patient has been free of chest pain and she denies any shortness of breath. She is scheduled to have an echocardiogram done and it will be reviewed then further recommendations will be given. In the meantime, no new medications. Her blood pressure seems under control. Her diabetes mellitus is being addressed as well as her underlying multiple sclerosis. It was a pleasure to participate in the care of Ms. Samia Troy for her underlying cardiac condition. I will continue to monitor her along with you as needed. Please do not hesitate to call if any questions. The case was discussed earlier today with her primary attending.
[2018-03-12 22:00] VITALS: BP 155/80
[2018-03-13] MEDS: BACLOFEN 10 MG TAB PO SCH ×5 (00:13→20:04)
[2018-03-13] MEDS: GABAPENTIN 100 MG CAP PO SCH (00:13)
[2018-03-13] MEDS: MORPHINE 4 MG/ML 1ML VIAL/SYRINGE (J2270) IV PRN ×4 (00:56→16:26)
[2018-03-13 06:00] VITALS: BP 130/60
[2018-03-13 06:14] LABS: HEMATOCRIT 36.8 % (36.0-47.0); HEMOGLOBIN 11.4 g/dl (12.0-15.5); MEAN CORPUSCULAR HEMOGLOBIN 25.6 pg (27.0-33.0); MEAN CORPUSCULAR VOLUME 82.5 fl (80.0-96.0); PLATELET COUNT, AUTOMATED 203 10^3/uL (150-450); RED BLOOD COUNT 4.46 10^6/uL (4.00-5.40); WHITE BLOOD COUNT 8.8 10^3/uL (4.0-10.0)
--- NOTE | 2018-03-13 07:25 | IPN ---
DATE OF SERVICE: 03/12/2018 The patient is seen today on [facility]. She reports that her hip pain is under better control with the addition of her baseline long-acting morphine medication. She has been receiving some IV morphine, but it appears that her last dose there was 4 a.m. this morning. She did get some oral Percocet yesterday morning. She is not having chest pains or palpitations. No cough or shortness of breath. She reports that she was seen by the scarrer yesterday as well as by the orthopedist. Knee pain feels a little bit better. She had an echocardiogram done this morning. Her current medications are: - gabapentin oral extended release - morphine - baclofen - Lovenox - heparin - Cymbalta - fluticasone nasal spray - calcium - Tylenol - injectable morphine - Percocet - bisacodyl On examination, her blood pressure is 102/52, temperature is 97.4, pulse 89 and regular, respirations 17, O2 saturation 96% on 2 liters. She is alert, pleasant, cooperative, not at all in any distress at rest. Appearing her usual self. Speech is clear. Her lungs are clear. Heart has regular rhythm without any murmur, click or gallop. Abdomen is soft and nontender without any masses or organomegaly. Bowel sounds are active. She has spasticity of all lower extremities. She has some function in her right arm and evidences interosseous wasting in her hands. She has pain in range of motion of her right leg. She does have some effusion and discoloration but not any warmth of her left knee. She does not have any new x-rays. We do not have a reading on her echocardiogram. Looking in her order history, there was an [facility] yesterday, [facility] ASSESSMENT: 1. Impacted subcapital fracture of the left hip. 2. Pain and swelling of left knee related to the same trauma. 3. Multiple sclerosis with triparesis. 4. Mildly elevated troponin without any chest pain. 5. History of diabetes. 6. History of chronic narcotic therapy. PLAN: Resident will continue on her current regimen. It does not appear that she is getting any additional treatment cardiac-palomo at this time other than observation. Will mcdermott down the EKG. I anticipate that tomorrow she will return to [facility] for further care. She will only be able to get oral narcotics there, not any injectable. Again she does not wish to have surgery and given her nonambulatory status to begin with, this is entirely reasonable. ESMER
[2018-03-13] MEDS: DULoxetine 30 MG CAP (CYMBALTA) PO SCH ×2 (08:24→20:04)
[2018-03-13] MEDS: GABAPENTIN 300 MG CAP PO SCH ×2 (08:24→16:15)
[2018-03-13] MEDS: ASPIRIN 81 MG ENTERIC TAB PO SCH (08:24)
[2018-03-13] MEDS: ENOXAPARIN 40 MG/0.4 ML SYRINGE (J1650) SC SCH (08:25)
[2018-03-13] MEDS: MORPHINE 15 MG SA TAB PO SCH (08:25)
[2018-03-13] MEDS: FLUTICASONE PROP 0.05% NASAL SPRAY 16 GM (FLONASE) NARES SCH (08:25)
[2018-03-13 09:42] LABS: TOTAL 25(OH) VITAMIN D 8.1 NG/ML (30.0-100.0)
--- NOTE | 2018-03-13 10:16 | IPNPDOC ---
Subjective Date Seen The patient was seen on 03/13/18. Subjective Chief Complaint/HPI fracture Events since last encounter Continues to nee IV morphine fairly routinely. On MS Contin 15 mg po bid and Oxycodone/acetaminophen 1 po q 4 hrs prn pain. States pain can become unbearable and is relieved with IV morphine. Constitutional: Denies: Chills, Fever, Night Sweats Pulmonary: Denies: Dyspnea, Cough Cardiovascular: Denies: Chest Pain, Palpitations, Orthopnea, Paroxysmal Noc. Dyspnea, Lt Headedness Gastrointestinal: Denies: Nausea, Vomiting, Abdominal Pain, Diarrhea, Constipation Genitourinary: Denies: Dysuria, Frequency, Incontinence, Retention Objective Physical Examination General Exam: Positive: Alert, No Acute Distress Chest Exam: Positive: Clear to auscultation, Normal air movement Heart Exam: Positive: Rate Normal, Regular Rhythm, Normal S1, Normal S2; Negative: Murmurs, Rubs Abdomen Exam: Positive: Normal bowel sounds, Soft; Negative: Tenderness, Hepatospenomegaly Extremity Exam: Positive: Other (bilateral foot drop and triparesis using right hand to eat) Skin Exam: Positive: Nl turgor and temperature; Negative: Rash, Breakdown Assessment /Plan Problems (1) Neurogenic bowel Status: Chronic Problem Text: chronic q3D enema dependent 03/13 + doc/senna BID given + high dose opioid-tf (2) Subcapital fracture of left hip Status: Acute Problem Text: non-surgical. will get pain under control then transition back to [facility] where she is a resident. Increase MS Contin to 30 mg po bid and Percocet to 2 tabs po q [address]. Pabon, patient's attending at [facility] (3) Multiple sclerosis Status: Chronic (4) HTN (hypertension) Status: Chronic (5) Chronic lung disease Status: Chronic Problem Text: 2LNC continuous chronic use. Plan/VTE VTE Prophylaxis Ordered?: Yes (lovenox) VS, I&O, 24H, Fishbone Vital Signs/I&O Vital Signs Date Time Temp Pulse Resp B/P (MAP) Pulse Ox O2 Delivery O2 Flow Rate FiO2 03/13/18 08:25 16 03/13/18 06:38 94 Nasal Cannula 2.0 03/13/18 06:00 97.9 91 130/60 (83) I&O- Last 24 Hours up to 6 AM 03/13/18 05:59 Intake Total 2440 ml Output Total 1150 ml Balance 1290 ml Laboratory Data 24H LABS Laboratory Tests 2 03/13/18 05:36: Nucleated Red Blood Cells % (auto) 0.0 CBC/BMP Laboratory Tests 03/13/18 05:36 Red Blood Count 4.46, Mean Corpuscular Volume 82.5, Mean Corpuscular Hemoglobin 25.6 L, Mean Corpuscular Hemoglobin Concent 31.0 L, Red Cell Distribution Width 14.6 H Mary Kay Hardin Mar 13, 2018 10:16 Hector Staples M.D. Mar 13, 2018 17:05
[2018-03-13] MEDS: PERCOCET 5MG/325MG TAB PO PRN (11:35)
[2018-03-13 14:00] VITALS: BP 138/72
[2018-03-13] MEDS: SENOKOT S TAB PO SCH (20:03)
[2018-03-13] MEDS: MORPHINE 30 MG SA TAB PO SCH (20:04)
[2018-03-13 22:00] VITALS: BP 145/74
[2018-03-14] MEDS: GABAPENTIN 100 MG CAP PO SCH
[2018-03-14] MEDS: PERCOCET 5MG/325MG TAB PO PRN (02:21)
[2018-03-14 06:00] VITALS: BP 140/65
[2018-03-14] MEDS ORDERED: MORP30TASA PO (08:56)
[2018-03-14] MEDS: DULoxetine 30 MG CAP (CYMBALTA) PO SCH (08:56)
[2018-03-14] MEDS: BACLOFEN 10 MG TAB PO SCH ×2 (08:56)
[2018-03-14] MEDS ORDERED: PERCOCET PO (08:56)
[2018-03-14] MEDS: SENOKOT S TAB PO SCH (08:56)
[2018-03-14] MEDS: ASPIRIN 81 MG ENTERIC TAB PO SCH (08:58)
[2018-03-14] MEDS: MORPHINE 30 MG SA TAB PO SCH (08:58)
[2018-03-14] MEDS: GABAPENTIN 300 MG CAP PO SCH (08:58)
[2018-03-14] MEDS: ENOXAPARIN 40 MG/0.4 ML SYRINGE (J1650) SC SCH (08:58)
[2018-03-14] MEDS: FLUTICASONE PROP 0.05% NASAL SPRAY 16 GM (FLONASE) NARES SCH (09:02)
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
== END 2018-03-14 11:59 | DRG 536 ==
LOC: EDBD 15:40 → M ED 15:40 → M ED INP 22:49 → M MSPAV 03-11 16:03 → OBSVTOIN 03-12 12:04
PROVIDERS: ADMIT Internal Medicine; ATTEND Family Medicine
DX: S72.012A Unspecified intracapsular fracture of left femur, initial encounter for closed fracture (principal); K59.2 Neurogenic bowel, not elsewhere classified; G82.20 Paraplegia, unspecified; V00.812A Wheelchair (powered) colliding with stationary object, initial encounter; Y92.254 Theater (live) as the place of occurrence of the external cause; M85.852 Other specified disorders of bone density and structure, left thigh; M25.562 Pain in left knee; G83.24 Monoplegia of upper limb affecting left nondominant side; G35 Multiple sclerosis; G89.4 Chronic pain syndrome; E11.9 Type 2 diabetes mellitus without complications; J98.4 Other disorders of lung; Z79.82 Long term (current) use of aspirin; Z79.84 Long term (current) use of oral hypoglycemic drugs; Z79.899 Other long term (current) drug therapy; Z88.0 Allergy status to penicillin; Z88.1 Allergy status to other antibiotic agents; Z88.2 Allergy status to sulfonamides; Z87.891 Personal history of nicotine dependence; Z90.49 Acquired absence of other specified parts of digestive tract; Z87.442 Personal history of urinary calculi

== ENCOUNTER → 2018-03-10 | Outpatient (REF) | payer MEDICARE, MEDICAID ==
[~2018-03-10] MED LIST changes: -ACET1TAB17 PO; +ACET1TAB55 PO; +ASPI81TA24 PO; +BIOF4GEL2 TOP; +CYAN1000VL IM; +FLON1SPR NARES; +GABA-1171 PO; -GABA-279 PO; +GLIM1TAB PO; +IPRA0.00 INH; -IPRASOL4 INH; +LOPE2CAP PO; +LOSA25TA33 PO; -LOSA50TA20 PO; +LOSA50TA73 PO; +MILK12002 PO; -MILKSUS PO; +MORP30TASA PO; +OMEP20CA3 PO; +PERCOCET PO; +PROM25SU2 PR; -ROCE1INJ4 IM; +ROCE1INJ6 IM; +SIMV10TA2 PO
--- NOTE | 2018-03-10 14:49 | REP ---
LEFT KNEE SERIES: Four views. HISTORY: Left hip and knee pain. COMPARISON: Left knee radiographs are from January 08, 2011. FINDINGS: There is profound diffuse osteopenia. No fractures seen. Lateral view obtained portably is somewhat over exposed but shows suprapatellar bursal fullness consistent with a joint effusion. There is also mild osteoarthritic patellar spurring. IMPRESSION: Osteoporosis. No fracture seen. Findings consistent with a joint effusion. Electronically Signed by Maxi Mcnulty MD 03/10/2018 07:20 P
--- NOTE | 2018-03-10 14:55 | REP ---
Left hip: Two views. History: Left hip and knee pain. Comparison study: October 14, 2005. Comparison is also made with images from abdomen series dated September 15, 2017. Findings: There is an impacted subcapital femoral neck fracture on the left. This is otherwise nondisplaced. There is advanced diffuse osteoporosis. Periarticular soft tissues show vascular calcification but are otherwise unremarkable. Impression: Impacted subcapital femoral neck fracture on the left. This is a new finding compared with the September 15, 2017 prior study. Electronically Signed by Maxi Mcnulty MD 03/10/2018 07:20 P
== END ==
LOC: SKLAB5 12:48
PROVIDERS: ATTEND Family Medicine
DX: S72.002A Fracture of unspecified part of neck of left femur, initial encounter for closed fracture (principal); M25.562 Pain in left knee

== ENCOUNTER → 2018-03-20 | Outpatient (REF) | payer MEDICARE, MEDICAID ==
[~2018-03-20] MED LIST changes: +ASPI81TA24 PO; +BIOF4GEL2 TOP; +CYAN1000VL IM; +FLON1SPR NARES; +GLIM1TAB PO; +LOPE2CAP PO; +LOSA25TA14 PO; +MORP30TASA PO; +OMEP20CA3 PO; +PERCOCET PO; +PROM25SU2 PR; +SIMV10TA2 PO
== END ==
LOC: SKLAB5 12:19
PROVIDERS: ATTEND Family Medicine
DX: Z22.322 Carrier or suspected carrier of Methicillin resistant Staphylococcus aureus (principal)

== ENCOUNTER 2018-03-22 10:09 | Outpatient (CLI) | payer MEDICARE, MEDICAID ==
[~2018-03-22] VITALS: Ht 167.6 cm; Wt 75.7 kg
[~2018-03-22 10:09] MED LIST changes: +BACLOFEN 10 MG TAB PO ONE; +IMMUNE GLOBULIN 10% 10 GM in APPROPRIATE DILUENT 1 EA IV ONE; +IMMUNE GLOBULIN 10% 20 GM in APPROPRIATE DILUENT 1 EA IV ONE; +IMMUNE GLOBULIN 10% 5 GM in APPROPRIATE DILUENT 1 EA IV ONE; +SENOKOT S TAB PO ONE
[2018-03-22 10:20] VITALS: BP 151/66
[2018-03-22 11:28] VITALS: BP 121/60
[2018-03-22 12:00] VITALS: BP 107/58
[2018-03-22 12:58] VITALS: BP 112/62
[2018-03-22 13:36] VITALS: BP 103/58
== END 2018-03-22 13:35 | disposition home or self-care (01) ==
LOC: M INFU 10:09
PROVIDERS: ATTEND Family Medicine
DX: G35 Multiple sclerosis (principal)
CPT/HCPCS: 96365; 96366; J1459

== ENCOUNTER → 2018-04-13 | Outpatient (REF) | payer MEDICARE, MEDICAID ==
[~2018-04-13] MED LIST changes: -BACLOFEN 10 MG TAB PO ONE; -IMMUNE GLOBULIN 10% 10 GM in APPROPRIATE DILUENT 1 EA IV ONE; -IMMUNE GLOBULIN 10% 20 GM in APPROPRIATE DILUENT 1 EA IV ONE; -IMMUNE GLOBULIN 10% 5 GM in APPROPRIATE DILUENT 1 EA IV ONE; -SENOKOT S TAB PO ONE
[2018-04-13 08:51] LABS: HEMOGLOBIN A1c 5.1 %
== END ==
LOC: SKLAB5 09:15
PROVIDERS: ATTEND Family Medicine
DX: G35 Multiple sclerosis (principal); E11.9 Type 2 diabetes mellitus without complications

== ENCOUNTER 2018-04-25 10:17 | Outpatient (CLI) | payer MEDICARE, MEDICAID ==
[~2018-04-25] VITALS: Ht 167.6 cm; Wt 75.7 kg
[2018-04-25] VITALS (7 sets, daily range): BP systolic 114–150; BP diastolic 58–65
[2018-04-25] MEDS ORDERED: SENOKOT S TAB PO ONE (11:00)
[2018-04-25] MEDS ORDERED: IMMUNE GLOBULIN 10% 20 GM in APPROPRIATE DILUENT 1 EA IV ONE (11:00)
[2018-04-25] MEDS ORDERED: IMMUNE GLOBULIN 10% 10 GM in APPROPRIATE DILUENT 1 EA IV ONE (11:00)
[2018-04-25] MEDS ORDERED: IMMUNE GLOBULIN 10% 5 GM in APPROPRIATE DILUENT 1 EA IV ONE (11:00)
[2018-04-25] MEDS ORDERED: BACLOFEN 10 MG TAB PO ONE (11:00)
== END 2018-04-25 14:45 | disposition home or self-care (01) ==
LOC: M INFU 10:17
PROVIDERS: ATTEND Family Medicine
DX: G35 Multiple sclerosis (principal); Z88.0 Allergy status to penicillin; Z88.1 Allergy status to other antibiotic agents; Z88.2 Allergy status to sulfonamides
CPT/HCPCS: 96365; 96366; J1459

== ENCOUNTER → 2018-05-11 | Outpatient (REF) | payer MEDICARE, MEDICAID ==
[2018-05-11 10:21] LABS: HEMATOCRIT 34.9 % (36.0-47.0); HEMOGLOBIN 10.8 g/dl (12.0-15.5); MEAN CORPUSCULAR HEMOGLOBIN 24.7 pg (27.0-33.0); MEAN CORPUSCULAR HGB CONC 30.9 g/dl (32.0-36.5); MEAN CORPUSCULAR VOLUME 79.9 fl (80.0-96.0); PLATELET COUNT, AUTOMATED 194 10^3/uL (150-450); RED BLOOD COUNT 4.37 10^6/uL (4.00-5.40); WHITE BLOOD COUNT 6.3 10^3/uL (4.0-10.0)
[2018-05-11 10:51] LABS: BLOOD UREA NITROGEN 15 MG/DL (7-18); CREATININE FOR GFR 0.32 MG/DL (0.55-1.30); GLUCOSE, FASTING 87 MG/DL (70-100)
[2018-05-11 10:52] LABS: CALCIUM LEVEL 8.5 MG/DL (8.8-10.2); CARBON DIOXIDE LEVEL 33 MEQ/L (21-32); CHLORIDE LEVEL 105 MEQ/L (98-107); GLOMERULAR FILTRATION RATE > 60.0 (>45); POTASSIUM SERUM 4.2 MEQ/L (3.5-5.1); SODIUM LEVEL 143 MEQ/L (136-145)
== END ==
LOC: SKLAB5 07:53
PROVIDERS: ATTEND Family Medicine
DX: G35 Multiple sclerosis (principal); D64.9 Anemia, unspecified

== ENCOUNTER 2018-06-27 15:15 | Outpatient (CLI) | payer MEDICARE, MEDICAID ==
[~2018-06-27] VITALS: Ht 167.6 cm; Wt 75.7 kg
[~2018-06-27 15:15] MED LIST changes: -/BACL20TA PO; -/FENO14TA PO; -/OXYB10XLT PO; +BACLOFEN 10 MG TAB PO ONE; +CEFD300C41 PO; -CEFD300CAP PO; +CEFT1INJ65 IM; -CEFT2VL IM; +DITR1TAB PO; -DULO30CA PO; +DULO30CA9 PO; -FLUTISP; +IMMUNE GLOBULIN 10% 10 GM in APPROPRIATE DILUENT 1 EA IV ONE; +IMMUNE GLOBULIN 10% 20 GM in APPROPRIATE DILUENT 1 EA IV ONE; +IMMUNE GLOBULIN 10% 5 GM in APPROPRIATE DILUENT 1 EA IV ONE; -POTA20EL PO; +TRIC145T19 PO; +[UNRECOGNIZED DRUG - CODE] PO
[2018-06-27] MEDS ORDERED: DULoxetine 30 MG CAP (CYMBALTA) PO ONE (15:30)
[2018-06-27] MEDS ORDERED: oxyBUTYnin 5 MG TAB PO ONE (15:30)
[2018-06-27] MEDS ORDERED: BACLOFEN 10 MG TAB PO ONE (15:30)
[2018-06-27] MEDS ORDERED: metFORMIN (GLUCOPHAGE) 1000 MG TABLET PO ONE (15:30)
[2018-06-27] MEDS ORDERED: GABAPENTIN 300 MG CAP PO ONE (15:30)
[2018-06-27 15:53] VITALS: BP 146/68
[2018-06-27 16:15] VITALS: BP 143/72
[2018-06-27 17:15] VITALS: BP 135/62
[2018-06-27 18:44] VITALS: BP 154/71
[2018-06-27 19:15] VITALS: BP 144/62
== END 2018-06-27 19:15 | disposition home or self-care (01) ==
LOC: M INFU 15:15
PROVIDERS: ATTEND Family Medicine
DX: G35 Multiple sclerosis (principal); Z88.0 Allergy status to penicillin; Z88.1 Allergy status to other antibiotic agents
CPT/HCPCS: 96365; 96366; J1459

== ENCOUNTER → 2018-08-10 | Outpatient (REF) | payer MEDICARE, MEDICAID ==
[~2018-08-10] MED LIST changes: -BACLOFEN 10 MG TAB PO ONE; -IMMUNE GLOBULIN 10% 10 GM in APPROPRIATE DILUENT 1 EA IV ONE; -IMMUNE GLOBULIN 10% 20 GM in APPROPRIATE DILUENT 1 EA IV ONE; -IMMUNE GLOBULIN 10% 5 GM in APPROPRIATE DILUENT 1 EA IV ONE
[2018-08-10 07:22] LABS: HEMATOCRIT 38.9 % (36.0-47.0); HEMOGLOBIN 11.9 g/dl (12.0-15.5); MEAN CORPUSCULAR HEMOGLOBIN 24.8 pg (27.0-33.0); MEAN CORPUSCULAR HGB CONC 30.6 g/dl (32.0-36.5); PLATELET COUNT, AUTOMATED 210 10^3/uL (150-450); WHITE BLOOD COUNT 7.6 10^3/uL (4.0-10.0)
[2018-08-10 07:57] LABS: BLOOD UREA NITROGEN 12 MG/DL (7-18); CALCIUM LEVEL 9.1 MG/DL (8.8-10.2); CARBON DIOXIDE LEVEL 35 MEQ/L (21-32); CHLORIDE LEVEL 104 MEQ/L (98-107); CREATININE FOR GFR 0.31 MG/DL (0.55-1.30); GLOMERULAR FILTRATION RATE > 60.0 (>45); GLUCOSE, FASTING 105 MG/DL (70-100); POTASSIUM SERUM 4.1 MEQ/L (3.5-5.1); SODIUM LEVEL 143 MEQ/L (136-145)
== END ==
LOC: SKLAB5 09:06
PROVIDERS: ATTEND Family Medicine
DX: G35 Multiple sclerosis (principal); D64.9 Anemia, unspecified

== ENCOUNTER 2018-08-30 15:04 | Outpatient (CLI) | payer MEDICARE, MEDICAID ==
[~2018-08-30] VITALS: Ht 167.6 cm; Wt 76.0 kg
[2018-08-30 15:15] VITALS: BP 129/59
[2018-08-30] MEDS ORDERED: IMMUNE GLOBULIN 10% 5 GM in APPROPRIATE DILUENT 1 EA IV ONE (15:45)
[2018-08-30] MEDS ORDERED: IMMUNE GLOBULIN 10% 20 GM in APPROPRIATE DILUENT 1 EA IV ONE (15:45)
[2018-08-30] MEDS ORDERED: metFORMIN (GLUCOPHAGE) 1000 MG TABLET PO ONE (15:45)
[2018-08-30] MEDS ORDERED: GABAPENTIN 300 MG CAP PO ONE (15:45)
[2018-08-30] MEDS ORDERED: IMMUNE GLOBULIN 10% 10 GM in APPROPRIATE DILUENT 1 EA IV ONE (15:45)
[2018-08-30] MEDS ORDERED: oxyBUTYnin 5 MG TAB PO ONE (15:45)
[2018-08-30] MEDS ORDERED: DULoxetine 30 MG CAP (CYMBALTA) PO ONE (15:45)
[2018-08-30] MEDS ORDERED: BACLOFEN 10 MG TAB PO ONE (15:45)
[2018-08-30 16:15] VITALS: BP 132/63
[2018-08-30 16:45] VITALS: BP 134/66
[2018-08-30 17:15] VITALS: BP 123/57
[2018-08-30 19:00] VITALS: BP 127/63
== END 2018-08-30 19:15 | disposition home or self-care (01) ==
LOC: M INFU 15:04
PROVIDERS: ATTEND Family Medicine
DX: G35 Multiple sclerosis (principal); Z88.8 Allergy status to other drugs, medicaments and biological substances
CPT/HCPCS: 96365; 96366; J1459

== ENCOUNTER → 2018-09-06 | Outpatient (CLI) | payer MEDICARE, MEDICAID ==
[~2018-09-06] MED LIST changes: -OMEP20CA3 PO; +OMEP20CA4 PO
--- NOTE | 2018-09-06 13:51 | REP ---
Clinical: Kidney stone. Technique: Two supine views of the abdomen and pelvis. Findings: Examination is severely limited due to technique and overlying bowel. Moderate to significant fecal stasis and constipation suggested. Intrarenal calculi as well as ureteral calculi cannot definitively be excluded. Skeletal structures demonstrate age-related osteopenia and degenerative changes. Left femoral neck fracture of indeterminate age. Suspected small phleboliths noted in the pelvis. Impression: Fecal stasis and constipation. Incomplete evaluation for urinary tract calcifications. Left femoral neck fracture of indeterminate age. Electronically Signed by Freddy Lowe MD 09/06/2018 01:43 P
== END ==
LOC: M RAD 11:13
PROVIDERS: ATTEND Family Medicine
DX: K56.41 Fecal impaction (principal); Z87.442 Personal history of urinary calculi

== ENCOUNTER → 2018-09-21 | Outpatient (REF) | payer MEDICARE, MEDICAID ==
[2018-09-21 07:48] LABS: HEMATOCRIT 37.1 % (36.0-47.0); HEMOGLOBIN 11.4 g/dl (12.0-15.5); MEAN CORPUSCULAR HEMOGLOBIN 25.6 pg (27.0-33.0); MEAN CORPUSCULAR HGB CONC 30.7 g/dl (32.0-36.5); MEAN CORPUSCULAR VOLUME 83.2 fl (80.0-96.0); PLATELET COUNT, AUTOMATED 229 10^3/uL (150-450); RED BLOOD COUNT 4.46 10^6/uL (4.00-5.40); WHITE BLOOD COUNT 6.9 10^3/uL (4.0-10.0)
[2018-09-21 08:19] LABS: BLOOD UREA NITROGEN 12 MG/DL (7-18); CALCIUM LEVEL 8.4 MG/DL (8.8-10.2); CARBON DIOXIDE LEVEL 36 MEQ/L (21-32); CHLORIDE LEVEL 105 MEQ/L (98-107); GLOMERULAR FILTRATION RATE > 60.0 (>45); GLUCOSE, FASTING 103 MG/DL (70-100); POTASSIUM SERUM 4.3 MEQ/L (3.5-5.1); SODIUM LEVEL 145 MEQ/L (136-145)
--- NOTE | 2018-09-21 09:24 | REP ---
Right knee, portable study, five views: There are no comparisons. There is diffuse demineralization. The there is no joint space narrowing. There is a small amount of calcified atheroma in the popliteal artery. There are no other calcifications. There is no fracture or dislocation. There is no joint effusion. Impression: Demineralization. Otherwise, negative portable right knee. Electronically Signed by Graysno Sierra MD 09/21/2018 09:16 A
== END ==
LOC: SKLAB5 06:44
PROVIDERS: ATTEND Family Medicine
DX: M25.561 Pain in right knee (principal)

== ENCOUNTER 2018-09-27 14:37 | Outpatient (CLI) | payer MEDICARE, MEDICAID ==
[~2018-09-27] VITALS: Ht 167.6 cm; Wt 76.0 kg
[2018-09-27 14:50] VITALS: BP 113/59
[2018-09-27] MEDS ORDERED: IMMUNE GLOBULIN 10% 20 GM in APPROPRIATE DILUENT 1 EA IV ONE (15:00)
[2018-09-27] MEDS ORDERED: IMMUNE GLOBULIN 10% 5 GM in APPROPRIATE DILUENT 1 EA IV ONE (15:00)
[2018-09-27] MEDS ORDERED: IMMUNE GLOBULIN 10% 10 GM in APPROPRIATE DILUENT 1 EA IV ONE (15:00)
[2018-09-27 15:50] VITALS: BP 119/59
[2018-09-27] MEDS ORDERED: oxyBUTYnin 5 MG TAB PO ONE (16:00)
[2018-09-27] MEDS ORDERED: DULoxetine 30 MG CAP (CYMBALTA) PO ONE (16:00)
[2018-09-27] MEDS ORDERED: GABAPENTIN 300 MG CAP PO ONE (16:00)
[2018-09-27] MEDS ORDERED: metFORMIN (GLUCOPHAGE) 1000 MG TABLET PO ONE (16:00)
[2018-09-27] MEDS ORDERED: BACLOFEN 10 MG TAB PO ONE (16:00)
[2018-09-27 16:20] VITALS: BP 122/59
[2018-09-27 16:50] VITALS: BP 110/53
[2018-09-27 18:23] VITALS: BP 129/60
== END 2018-09-27 18:30 | disposition home or self-care (01) ==
LOC: M INFU 14:37
PROVIDERS: ATTEND Family Medicine
DX: G35 Multiple sclerosis (principal)
CPT/HCPCS: 96365; 96366; J1459

== ENCOUNTER → 2018-10-05 | Outpatient (REF) | payer MEDICARE, MEDICAID ==
[2018-10-05 08:22] LABS: HEMOGLOBIN A1c 5.9 %
== END ==
LOC: SKLAB5 07:39
PROVIDERS: ATTEND Family Medicine
DX: E11.9 Type 2 diabetes mellitus without complications (principal)

== ENCOUNTER 2018-10-27 12:11 | Outpatient (CLI) | payer MEDICARE, MEDICAID ==
[~2018-10-27] VITALS: Ht 167.6 cm; Wt 76.0 kg
[~2018-10-27 12:11] MED LIST changes: -MORP-38 PO; +MORP-69 PO
[2018-10-27 12:15] VITALS: BP 146/63
[2018-10-27] MEDS ORDERED: IMMUNE GLOBULIN 10% 5 GM in APPROPRIATE DILUENT 1 EA IV ONE (13:00)
[2018-10-27] MEDS ORDERED: IMMUNE GLOBULIN 10% 20 GM in APPROPRIATE DILUENT 1 EA IV ONE (13:00)
[2018-10-27] MEDS ORDERED: IMMUNE GLOBULIN 10% 10 GM in APPROPRIATE DILUENT 1 EA IV ONE (13:00)
[2018-10-27 13:30] VITALS: BP 138/59
[2018-10-27 14:00] VITALS: BP 135/61
[2018-10-27 14:30] VITALS: BP 113/58
[2018-10-27 15:00] VITALS: BP 148/65
[2018-10-27 16:00] VITALS: BP 122/68
== END 2018-10-27 16:30 | disposition home or self-care (01) ==
LOC: M INFU 12:11
PROVIDERS: ATTEND Family Medicine
DX: G35 Multiple sclerosis (principal); Z88.0 Allergy status to penicillin; Z88.1 Allergy status to other antibiotic agents; Z88.2 Allergy status to sulfonamides
CPT/HCPCS: 96365; 96366; J1459

== ENCOUNTER → 2018-11-07 | Outpatient (REF) | payer MEDICARE, MEDICAID | LOC: SKLAB5 13:52 | PROVIDERS: ATTEND Family Medicine | DX: J20.9 Acute bronchitis, unspecified (principal) ==

== ENCOUNTER → 2018-11-09 | Outpatient (REF) | payer MEDICARE, MEDICAID ==
[~2018-11-09] MED LIST changes: -GLIM1TAB PO; +GLIM1TAB4 PO; +OMEP1CAP73 PO; -OMEP20CA4 PO; -SIMV10TA2 PO; +SIMV10TA21 PO
[2018-11-09 08:22] LABS: HEMATOCRIT 36.4 % (36.0-47.0); HEMOGLOBIN 11.2 g/dl (12.0-15.5); MEAN CORPUSCULAR HEMOGLOBIN 24.8 pg (27.0-33.0); MEAN CORPUSCULAR HGB CONC 30.8 g/dl (32.0-36.5); MEAN CORPUSCULAR VOLUME 80.5 fl (80.0-96.0); PLATELET COUNT, AUTOMATED 223 10^3/uL (150-450); RED BLOOD COUNT 4.52 10^6/uL (4.00-5.40); WHITE BLOOD COUNT 7.4 10^3/uL (4.0-10.0)
[2018-11-09 09:24] LABS: BLOOD UREA NITROGEN 12 MG/DL (7-18); CALCIUM LEVEL 8.8 MG/DL (8.8-10.2); CARBON DIOXIDE LEVEL 32 MEQ/L (21-32); CHLORIDE LEVEL 103 MEQ/L (98-107); CHOLESTEROL LEVEL 153 MG/DL (<200); CREATININE FOR GFR 0.32 MG/DL (0.55-1.30); GLOMERULAR FILTRATION RATE > 60.0 (>45); GLUCOSE, FASTING 110 MG/DL (70-100); HDL CHOLESTEROL 36 MG/DL (>40); LDL CHOLESTEROL 64 MG/DL (<100); NON-HDL-C 117 MG/DL; POTASSIUM SERUM 4.1 MEQ/L (3.5-5.1); SODIUM LEVEL 142 MEQ/L (136-145); THYROID STIMULATING HORMONE 0.717 uIU/ML (0.358-3.740); TRIGLYCERIDES LEVEL 264 MG/DL (<150)
== END ==
LOC: SKLAB5 10:20
PROVIDERS: ATTEND Family Medicine
DX: G35 Multiple sclerosis (principal); D64.9 Anemia, unspecified; E78.5 Hyperlipidemia, unspecified

== ENCOUNTER 2018-11-23 11:16 | Outpatient (CLI) | payer MEDICARE, MEDICAID ==
[~2018-11-23] VITALS: Ht 167.6 cm; Wt 76.0 kg
[2018-11-23 11:20] VITALS: BP 148/66
[2018-11-23] MEDS ORDERED: IMMUNE GLOBULIN 10% 5 GM in IV 1 EA IV ONE (12:00)
[2018-11-23] MEDS ORDERED: IMMUNE GLOBULIN 10% 20 GM in IV 1 EA IV ONE (12:00)
[2018-11-23] MEDS ORDERED: IMMUNE GLOBULIN 10% 10 GM in IV 1 EA IV ONE (12:00)
[2018-11-23 12:35] VITALS: BP 129/59
[2018-11-23 13:05] VITALS: BP 131/65
[2018-11-23 13:35] VITALS: BP 133/64
[2018-11-23 14:05] VITALS: BP 134/62
[2018-11-23 15:25] VITALS: BP 126/65
== END 2018-11-23 15:25 | disposition home or self-care (01) ==
LOC: M INFU 11:16
PROVIDERS: ATTEND Family Medicine
DX: G35 Multiple sclerosis (principal)
CPT/HCPCS: 96365; 96366; J1459

== ENCOUNTER 2018-12-22 12:18 | Outpatient (CLI) | payer MEDICARE, MEDICAID ==
[~2018-12-22] VITALS: Ht 167.6 cm; Wt 76.0 kg
[~2018-12-22 12:18] MED LIST changes: +GLIM1TAB2 PO; -GLIM1TAB4 PO; -OMEP1CAP73 PO; +OMEP20CA4 PO; +SIMV10TA2 PO; -SIMV10TA21 PO
[2018-12-22 12:20] VITALS: BP 129/64
[2018-12-22] MEDS ORDERED: BACLOFEN 10 MG TAB PO ONE (13:00)
[2018-12-22] MEDS ORDERED: DULoxetine 30 MG CAP (CYMBALTA) PO ONE (13:00)
[2018-12-22] MEDS ORDERED: IMMUNE GLOBULIN 10% 10 GM in IV 1 EA IV ONE (13:00)
[2018-12-22] MEDS ORDERED: metFORMIN (GLUCOPHAGE) 1000 MG TABLET PO ONE (13:00)
[2018-12-22] MEDS ORDERED: IMMUNE GLOBULIN 10% 20 GM in IV 1 EA IV ONE (13:00)
[2018-12-22] MEDS ORDERED: IMMUNE GLOBULIN 10% 5 GM in IV 1 EA IV ONE (13:00)
[2018-12-22 13:15] VITALS: BP 125/59
[2018-12-22] MEDS ORDERED: oxyBUTYnin 5 MG TAB PO ONE (13:15)
[2018-12-22 13:45] VITALS: BP 128/66
[2018-12-22 14:15] VITALS: BP 133/58
[2018-12-22 15:30] VITALS: BP 128/60
[2018-12-22 17:00] VITALS: BP 138/63
== END 2018-12-22 17:25 | disposition home or self-care (01) ==
LOC: M INFU 12:18
PROVIDERS: ATTEND Family Medicine
DX: G35 Multiple sclerosis (principal)
CPT/HCPCS: 96365; 96366; J1459

== ENCOUNTER 2019-01-19 11:10 | Outpatient (CLI) | payer MEDICARE, MEDICAID ==
[~2019-01-19] VITALS: Ht 167.6 cm; Wt 76.0 kg
[2019-01-19] MEDS ORDERED: IMMUNE GLOBULIN 10% 10 GM in IV 1 EA IV ONE (12:00)
[2019-01-19] MEDS ORDERED: IMMUNE GLOBULIN 10% 5 GM in IV 1 EA IV ONE (12:00)
[2019-01-19] MEDS ORDERED: IMMUNE GLOBULIN 10% 20 GM in IV 1 EA IV ONE (12:00)
[2019-01-19 12:30] VITALS: BP 127/58
[2019-01-19 13:30] VITALS: BP 124/64
[2019-01-19 15:03] VITALS: BP 120/56
== END 2019-01-19 15:04 | disposition home or self-care (01) ==
LOC: M INFU 11:10
PROVIDERS: ATTEND Family Medicine
DX: G35 Multiple sclerosis (principal); Z88.0 Allergy status to penicillin; Z88.1 Allergy status to other antibiotic agents; Z88.2 Allergy status to sulfonamides
CPT/HCPCS: 96365; 96366; J1459

== ENCOUNTER → 2019-02-08 | Outpatient (REF) | payer MEDICARE, MEDICAID ==
[~2019-02-08] MED LIST changes: -SIMV10TA2 PO; +SIMV10TA21 PO
[2019-02-08 08:34] LABS: HEMATOCRIT 36.5 % (36.0-47.0); HEMOGLOBIN 11.1 g/dl (12.0-15.5); MEAN CORPUSCULAR HEMOGLOBIN 24.9 pg (27.0-33.0); MEAN CORPUSCULAR HGB CONC 30.4 g/dl (32.0-36.5); MEAN CORPUSCULAR VOLUME 81.8 fl (80.0-96.0); PLATELET COUNT, AUTOMATED 232 10^3/uL (150-450); RED BLOOD COUNT 4.46 10^6/uL (4.00-5.40)
[2019-02-08 08:57] LABS: BLOOD UREA NITROGEN 11 MG/DL (7-18); CALCIUM LEVEL 8.8 MG/DL (8.8-10.2); CARBON DIOXIDE LEVEL 34 MEQ/L (21-32); CHLORIDE LEVEL 105 MEQ/L (98-107); CREATININE FOR GFR 0.37 MG/DL (0.55-1.30); GLOMERULAR FILTRATION RATE > 60.0 (>45); GLUCOSE, FASTING 103 MG/DL (70-100); SODIUM LEVEL 144 MEQ/L (136-145)
== END ==
LOC: SKLAB5 09:54
PROVIDERS: ATTEND Family Medicine
DX: G35 Multiple sclerosis (principal); D64.9 Anemia, unspecified

== ENCOUNTER 2019-02-16 10:48 | Outpatient (CLI) | payer MEDICARE, MEDICAID ==
[~2019-02-16] VITALS: Ht 165.1 cm; Wt 76.0 kg
[~2019-02-16 10:48] MED LIST changes: +OMEP-172 PO; -OMEP20CA4 PO
[2019-02-16 10:50] VITALS: BP 143/71
[2019-02-16] MEDS ORDERED: IMMUNE GLOBULIN 10% 10 GM in IV 1 EA IV ONE (11:15)
[2019-02-16] MEDS ORDERED: IMMUNE GLOBULIN 10% 5 GM in IV 1 EA IV ONE (11:15)
[2019-02-16] MEDS ORDERED: IMMUNE GLOBULIN 10% 20 GM in IV 1 EA IV ONE (11:15)
[2019-02-16 12:00] VITALS: BP 127/65
[2019-02-16 12:30] VITALS: BP 134/70
[2019-02-16 13:00] VITALS: BP 144/63
[2019-02-16 14:35] VITALS: BP 135/68
== END 2019-02-16 14:55 | disposition home or self-care (01) ==
LOC: M INFU 10:48
PROVIDERS: ATTEND Family Medicine
DX: G35 Multiple sclerosis (principal); Z88.0 Allergy status to penicillin; Z88.1 Allergy status to other antibiotic agents; Z88.2 Allergy status to sulfonamides; Z88.7 Allergy status to serum and vaccine
CPT/HCPCS: 96365; 96366; J1459

== ENCOUNTER 2019-03-16 10:50 | Outpatient (CLI) | payer MEDICARE, MEDICAID ==
[~2019-03-16] VITALS: Ht 165.1 cm; Wt 76.0 kg
[~2019-03-16 10:50] MED LIST changes: -GLIM1TAB2 PO; +GLIM1TAB4 PO; -OMEP-172 PO; +OMEP1CAP73 PO
[2019-03-16] MEDS ORDERED: IMMUNE GLOBULIN 10% 10 GM in IV 1 EA IV ONE (11:00)
[2019-03-16] MEDS ORDERED: IMMUNE GLOBULIN 10% 20 GM in IV 1 EA IV ONE (11:00)
[2019-03-16] MEDS ORDERED: IMMUNE GLOBULIN 10% 5 GM in IV 1 EA IV ONE (11:00)
[2019-03-16 11:20] VITALS: BP 137/65
[2019-03-16 11:50] VITALS: BP 140/81
[2019-03-16 12:20] VITALS: BP 120/68
[2019-03-16 12:50] VITALS: BP 126/78
[2019-03-16 13:50] VITALS: BP 119/59
[2019-03-16 14:14] VITALS: BP 117/58
== END 2019-03-16 15:45 | disposition home or self-care (01) ==
LOC: M INFU 10:50
PROVIDERS: ATTEND Family Medicine
DX: G35 Multiple sclerosis (principal); Z88.0 Allergy status to penicillin; Z88.1 Allergy status to other antibiotic agents; Z88.2 Allergy status to sulfonamides
CPT/HCPCS: 96365; 96366; J1459

== ENCOUNTER → 2019-04-12 | Outpatient (REF) | payer MEDICARE, MEDICAID ==
[2019-04-12 09:07] LABS: HEMOGLOBIN A1c 5.8 %
== END ==
LOC: SKLAB5 09:00
PROVIDERS: ATTEND Family Medicine
DX: E11.9 Type 2 diabetes mellitus without complications (principal)

== ENCOUNTER 2019-04-16 11:19 | Outpatient (CLI) | payer MEDICARE, MEDICAID ==
[~2019-04-16] VITALS: Ht 165.1 cm; Wt 76.0 kg
[2019-04-16 11:30] VITALS: BP 143/66
[2019-04-16] MEDS ORDERED: IMMUNE GLOBULIN 10% 20 GM in IV 1 EA IV ONE (12:00)
[2019-04-16] MEDS ORDERED: IMMUNE GLOBULIN 10% 5 GM in IV 1 EA IV ONE (12:00)
[2019-04-16] MEDS ORDERED: IMMUNE GLOBULIN 10% 10 GM in IV 1 EA IV ONE (12:00)
[2019-04-16 12:50] VITALS: BP 142/66
[2019-04-16 13:20] VITALS: BP 154/60
[2019-04-16 13:50] VITALS: BP 137/65
[2019-04-16 14:50] VITALS: BP 136/66
[2019-04-16 15:50] VITALS: BP 115/61
== END 2019-04-16 15:50 | disposition home or self-care (01) ==
LOC: M INFU 11:19
PROVIDERS: ATTEND Family Medicine
DX: G35 Multiple sclerosis (principal); Z88.0 Allergy status to penicillin; Z88.2 Allergy status to sulfonamides; Z88.8 Allergy status to other drugs, medicaments and biological substances
CPT/HCPCS: 96365; 96366; J1459

== ENCOUNTER → 2019-05-10 | Outpatient (REF) | payer MEDICARE, MEDICAID ==
[2019-05-10 09:12] LABS: HEMATOCRIT 36.6 % (36.0-47.0); MEAN CORPUSCULAR HEMOGLOBIN 24.8 pg (27.0-33.0); MEAN CORPUSCULAR HGB CONC 30.1 g/dl (32.0-36.5); MEAN CORPUSCULAR VOLUME 82.4 fl (80.0-96.0); PLATELET COUNT, AUTOMATED 216 10^3/uL (150-450); RED BLOOD COUNT 4.44 10^6/uL (4.00-5.40); WHITE BLOOD COUNT 6.4 10^3/uL (4.0-10.0)
[2019-05-10 09:27] LABS: BLOOD UREA NITROGEN 9 MG/DL (7-18); CALCIUM LEVEL 8.6 MG/DL (8.8-10.2); CARBON DIOXIDE LEVEL 35 MEQ/L (21-32); CHLORIDE LEVEL 104 MEQ/L (98-107); CREATININE FOR GFR 0.34 MG/DL (0.55-1.30); GLOMERULAR FILTRATION RATE > 60.0 (>45); GLUCOSE, FASTING 95 MG/DL (70-100); POTASSIUM SERUM 4.2 MEQ/L (3.5-5.1); SODIUM LEVEL 144 MEQ/L (136-145)
== END ==
LOC: SKLAB5 07:39
PROVIDERS: ATTEND Family Medicine
DX: G35 Multiple sclerosis (principal); D64.9 Anemia, unspecified

== ENCOUNTER 2019-05-14 11:51 | Outpatient (CLI) | payer MEDICAID, MEDICARE ==
[~2019-05-14] VITALS: Ht 165.1 cm; Wt 76.0 kg
[2019-05-14] MEDS ORDERED: IMMUNE GLOBULIN 10% 10 GM in IV 1 EA IV ONE (12:15)
[2019-05-14] MEDS ORDERED: IMMUNE GLOBULIN 10% 20 GM in IV 1 EA IV ONE (12:15)
[2019-05-14] MEDS ORDERED: IMMUNE GLOBULIN 10% 5 GM in IV 1 EA IV ONE (12:15)
[2019-05-14 12:51] VITALS: BP 135/59
[2019-05-14 12:55] VITALS: BP 128/67
[2019-05-14 13:25] VITALS: BP 139/61
[2019-05-14 13:55] VITALS: BP 121/57
[2019-05-14 14:25] VITALS: BP 111/54
== END 2019-05-14 16:05 | disposition home or self-care (01) ==
LOC: M INFU 11:51
PROVIDERS: ATTEND Family Medicine
DX: G35 Multiple sclerosis (principal); Z88.0 Allergy status to penicillin; Z88.2 Allergy status to sulfonamides; Z88.8 Allergy status to other drugs, medicaments and biological substances
CPT/HCPCS: 96365; 96366; J1459

== ENCOUNTER → 2019-06-07 | Outpatient (CLI) | payer MEDICARE ==
--- NOTE | 2019-06-07 10:16 | REP ---
Left lower extremity Duplex Doppler venous ultrasound: Real time compression and duplex Doppler interrogation of the left lower extremity deep venous system is performed. The left common femoral, superficial femoral and popliteal veins are fully compressible with transducer pressure and demonstrate normal spontaneous and phasic flow, without evidence of deep venous thrombosis. Impression: No evidence of deep venous thrombosis of the left lower extremity femoral popliteal venous system. Electronically Signed by Grayson Ball MD 06/07/2019 10:07 A
== END ==
LOC: M RAD 09:41
PROVIDERS: ATTEND Family Medicine
DX: M25.552 Pain in left hip (principal)

== ENCOUNTER 2019-06-11 11:41 | Outpatient (CLI) | payer MEDICARE, MEDICAID ==
[~2019-06-11] VITALS: Ht 165.1 cm; Wt 76.0 kg
[2019-06-11] MEDS ORDERED: IMMUNE GLOBULIN 10% 20 GM in IV 1 EA IV ONE (12:00)
[2019-06-11] MEDS ORDERED: IMMUNE GLOBULIN 10% 10 GM in IV 1 EA IV ONE (12:00)
[2019-06-11] MEDS ORDERED: IMMUNE GLOBULIN 10% 5 GM in IV 1 EA IV ONE (12:00)
[2019-06-11 12:17] VITALS: BP 141/67
[2019-06-11 12:33] VITALS: BP 132/61
[2019-06-11 15:00] VITALS: BP 130/76
== END 2019-06-11 15:10 | disposition home or self-care (01) ==
LOC: M INFU 11:41
PROVIDERS: ATTEND Family Medicine
DX: G35 Multiple sclerosis (principal); Z88.0 Allergy status to penicillin; Z88.2 Allergy status to sulfonamides; Z88.8 Allergy status to other drugs, medicaments and biological substances
CPT/HCPCS: 96365; 96366; J1459

== ENCOUNTER → 2019-06-28 | Outpatient (REF) | payer MEDICARE, MEDICAID | LOC: SKLAB5 04:31 | PROVIDERS: ATTEND Family Medicine | DX: R30.0 Dysuria (principal) ==

== ENCOUNTER → 2019-06-28 | Outpatient (REF) | payer MEDICARE, MEDICAID ==
[2019-06-28 10:39] LABS: APPEARANCE, URINE TURBID (CLEAR); BACTERIA, URINE AUTO 3+ (NEGATIVE); BILIRUBIN, URINE AUTO NEGATIVE (NEGATIVE); BLOOD, URINE BLOOD 1+ (NEGATIVE); COLOR, URINE YELLOW (YELLOW); GLUCOSE, URINE (UA) AUTO NEGATIVE (NEGATIVE); KETONE, URINE AUTO NEGATIVE (NEGATIVE); LEUKOCYTE ESTERASE, URINE AUTO 2+ (NEGATIVE); MUCUS, URINE SMALL (NEGATIVE); NITRITE, URINE AUTO NEGATIVE (NEGATIVE); PROTEIN, URINE AUTO NEGATIVE (NEGATIVE); RBC, URINE AUTO 75 /HPF (0-3); SQUAMOUS EPITHELIAL CELL UR AU 11 /HPF (0-6); UROBILINOGEN, URINE AUTO 0.2 mg/dL (0.0-2.0); WBC, URINE AUTO TNTC /HPF (0-3)
== END ==
LOC: SKLAB5 10:07
PROVIDERS: ATTEND Family Medicine
DX: R30.0 Dysuria (principal)

== ENCOUNTER → 2019-07-01 | Outpatient (REF) | payer MEDICARE, MEDICAID ==
[2019-07-01 08:46] LABS: HEMATOCRIT 35.9 % (36.0-47.0); HEMOGLOBIN 10.8 g/dl (12.0-15.5); MEAN CORPUSCULAR HEMOGLOBIN 24.4 pg (27.0-33.0); MEAN CORPUSCULAR HGB CONC 30.1 g/dl (32.0-36.5); MEAN CORPUSCULAR VOLUME 81.2 fl (80.0-96.0); PLATELET COUNT, AUTOMATED 220 10^3/uL (150-450); RED BLOOD COUNT 4.42 10^6/uL (4.00-5.40)
== END ==
LOC: SKLAB5 08:30
DX: N39.0 Urinary tract infection, site not specified (principal)

== ENCOUNTER 2019-07-09 11:42 | Outpatient (CLI) | payer MEDICARE, MEDICAID ==
[~2019-07-09] VITALS: Ht 165.1 cm; Wt 76.0 kg
[2019-07-09 11:45] VITALS: BP 144/68
[2019-07-09] MEDS ORDERED: IMMUNE GLOBULIN 10% 5 GM in IV 1 EA IV ONE (12:15)
[2019-07-09] MEDS ORDERED: IMMUNE GLOBULIN 10% 10 GM in IV 1 EA IV ONE (12:15)
[2019-07-09] MEDS ORDERED: IMMUNE GLOBULIN 10% 20 GM in IV 1 EA IV ONE (12:15)
[2019-07-09 13:00] VITALS: BP 143/67
[2019-07-09 14:00] VITALS: BP 120/65
[2019-07-09 14:30] VITALS: BP 150/64
[2019-07-09 15:40] VITALS: BP 132/64
== END 2019-07-09 16:00 | disposition home or self-care (01) ==
LOC: M INFU 11:42
PROVIDERS: ATTEND Family Medicine
DX: G35 Multiple sclerosis (principal); Z88.0 Allergy status to penicillin; Z88.1 Allergy status to other antibiotic agents; Z88.2 Allergy status to sulfonamides
CPT/HCPCS: 96365; 96366; J1459

== ENCOUNTER → 2019-07-18 | Outpatient (REF) | LOC: SKLAB5 14:38 | PROVIDERS: ATTEND Internal Medicine | DX: Z03.818 Encounter for observation for suspected exposure to other biological agents ruled out (principal) ==

== ENCOUNTER 2019-08-06 11:31 | Outpatient (CLI) | payer MEDICARE, MEDICAID ==
[~2019-08-06] VITALS: Ht 165.1 cm; Wt 76.0 kg
[2019-08-06] MEDS ORDERED: IMMUNE GLOBULIN 10% 10 GM in IV 1 EA IV ONE (11:45)
[2019-08-06] MEDS ORDERED: IMMUNE GLOBULIN 10% 5 GM in IV 1 EA IV ONE (11:45)
[2019-08-06] MEDS ORDERED: IMMUNE GLOBULIN 10% 20 GM in IV 1 EA IV ONE (11:45)
[2019-08-06 11:50] VITALS: BP 143/71
[2019-08-06 13:45] VITALS: BP 137/62
[2019-08-06 14:11] VITALS: BP 141/69
[2019-08-06 15:10] VITALS: BP 131/70
[2019-08-06 16:51] VITALS: BP 124/70
== END 2019-08-06 16:45 | disposition home or self-care (01) ==
LOC: M INFU 11:31
PROVIDERS: ATTEND Family Medicine
DX: G35 Multiple sclerosis (principal); Z88.0 Allergy status to penicillin; Z88.2 Allergy status to sulfonamides; Z88.8 Allergy status to other drugs, medicaments and biological substances
CPT/HCPCS: 96365; 96366; J1459

== ENCOUNTER → 2019-08-09 | Outpatient (REF) | payer MEDICARE, MEDICAID ==
[2019-08-09 09:14] LABS: HEMATOCRIT 37.2 % (36.0-47.0); HEMOGLOBIN 11.5 g/dl (12.0-15.5); MEAN CORPUSCULAR HGB CONC 30.9 g/dl (32.0-36.5); MEAN CORPUSCULAR VOLUME 80.9 fl (80.0-96.0); PLATELET COUNT, AUTOMATED 210 10^3/uL (150-450)
[2019-08-09 09:41] LABS: BLOOD UREA NITROGEN 8 MG/DL (7-18); CALCIUM LEVEL 8.6 MG/DL (8.8-10.2); CARBON DIOXIDE LEVEL 33 MEQ/L (21-32); CHLORIDE LEVEL 107 MEQ/L (98-107); CREATININE FOR GFR 0.37 MG/DL (0.55-1.30); GLOMERULAR FILTRATION RATE > 60.0 (>45); GLUCOSE, FASTING 86 MG/DL (70-100); POTASSIUM SERUM 3.9 MEQ/L (3.5-5.1); SODIUM LEVEL 145 MEQ/L (136-145)
== END ==
LOC: SKLAB5 08:05
PROVIDERS: ATTEND Family Medicine
DX: G35 Multiple sclerosis (principal); D64.9 Anemia, unspecified

== ENCOUNTER 2019-09-12 11:42 | Outpatient (CLI) | payer MEDICARE, MEDICAID ==
[~2019-09-12] VITALS: Ht 165.1 cm; Wt 76.0 kg
[~2019-09-12 11:42] MED LIST changes: +IMMUNE GLOBULIN 10% 10 GM in IV 1 EA IV ONE; +IMMUNE GLOBULIN 10% 20 GM in IV 1 EA IV ONE; +IMMUNE GLOBULIN 10% 5 GM in IV 1 EA IV ONE; -METF-699 PO; +METF-817 PO; -PROM25SU2 PR; +PROM25SU3 PR
[2019-09-12 11:50] VITALS: BP 137/60
[2019-09-12 12:30] VITALS: BP 118/64
[2019-09-12 13:00] VITALS: BP 116/66
[2019-09-12 13:30] VITALS: BP 115/61
[2019-09-12 15:45] VITALS: BP 113/59
== END 2019-09-12 15:45 | disposition home or self-care (01) ==
LOC: M INFU 11:42
PROVIDERS: ATTEND Family Medicine
DX: G35 Multiple sclerosis (principal)
CPT/HCPCS: 96365; 96366; J1459

== ENCOUNTER → 2019-09-20 | Outpatient (REF) | payer MEDICARE, MEDICAID ==
[~2019-09-20] MED LIST changes: -IMMUNE GLOBULIN 10% 10 GM in IV 1 EA IV ONE; -IMMUNE GLOBULIN 10% 20 GM in IV 1 EA IV ONE; -IMMUNE GLOBULIN 10% 5 GM in IV 1 EA IV ONE; +METF-699 PO; -METF-817 PO; +PROM25SU2 PR; -PROM25SU3 PR
--- NOTE | 2019-09-20 16:33 | REP ---
KUB, ABDOMEN AND PELVIS: Two KUB films of abdomen/pelvis performed and compared to prior study of 09/06/2018. There is a large amount of fecal material throughout the colon which limits evaluation for underlying calculi. Stomach is moderately distended with air. Diffuse vascular calcifications are present. There is no definite radiopaque renal calculus. There are phleboliths in the pelvis. There are degenerative changes of the spine. IMPRESSION: Large amount of fecal material limits evaluation for underlying calculi in the urinary tract. No gross calculi are seen. Electronically Signed by Grayson Ball MD 09/24/2019 09:07 A
== END ==
LOC: SKLAB5 12:05
DX: G35 Multiple sclerosis (principal); Z87.442 Personal history of urinary calculi

== ENCOUNTER → 2019-09-24 | Outpatient (CLI) | payer MEDICARE, MEDICAID ==
[~2019-09-24] MED LIST changes: -METF-699 PO; +METF-817 PO; -PROM25SU2 PR; +PROM25SU3 PR
--- NOTE | 2019-09-24 15:17 | REP ---
Clinical: Right upper quadrant pain. Technique: Three supine views of the abdomen and pelvis. Findings: Moderate/significant fecal stasis is suggested and may reflect constipation. No definite bowel obstruction or perforation. No obvious organomegaly. No significant abnormal calcification or foreign body. Evidence of prior cholecystectomy noted. Skeletal structures demonstrate osteopenia and degenerative changes. Impression: Findings suggesting fecal stasis and possible constipation. Electronically Signed by Freddy Lowe MD 09/24/2019 03:09 P
--- NOTE | 2019-09-24 15:34 | REP ---
Clinical: Right upper quadrant pain. Technique: Real time youngblood scale ultrasound examination using curved array transducer. Findings: Liver demonstrates coarsened echotexture without focal hepatic lesion identified. Pancreas is incompletely evaluated due to interposed bowel gas. No focal hepatic or pancreatic lesions are identified. Findings suggest prior cholecystectomy along with compensatory dilatation to the common bile duct at 10 mm diameter. The right kidney appears atrophic without hydronephrosis and measures 7.9 x 4.5 x 4.1 cm. No ascites in the visualized right upper quadrant. Impression: 1. No obvious acute pathology by ultrasound examination. Electronically Signed by Freddy Lowe MD 09/24/2019 03:25 P
== END ==
LOC: M RAD 14:36
PROVIDERS: ATTEND Nurse Practitioner Adult Health
DX: R10.9 Unspecified abdominal pain (principal)

== ENCOUNTER → 2019-10-11 | Outpatient (REF) | payer MEDICARE, MEDICAID ==
[2019-12-31 16:16] LABS: HEMOGLOBIN A1c 5.6 %
== END ==
LOC: SKLAB5 16:34
DX: E11.9 Type 2 diabetes mellitus without complications (principal)

== ENCOUNTER 2019-10-16 10:00 | Outpatient (CLI) | payer MEDICARE, MEDICAID ==
[2019-10-16] MEDS ORDERED: IMMUNE GLOBULIN 10% 10GM 100ML BOTTLE (PRIVIGEN) (J1459 PER 500MG) As Ordered ONE (11:12)
[2019-10-16] MEDS ORDERED: IMMUNE GLOBULIN 10% 20GM 200ML BOTTLE (PRIVIGEN) (J1459 PER 500MG) As Ordered ONE (11:12)
[2019-10-16] MEDS ORDERED: IMMUNE GLOBULIN 10% 5GM 50ML BOTTLE (PRIVIGEN) (J1459 PER 500MG) As Ordered ONE (11:13)
== END 2019-10-16 14:30 | disposition home or self-care (01) ==
LOC: M INFU 10:00
PROVIDERS: ATTEND Family Medicine
DX: G35 Multiple sclerosis (principal)
CPT/HCPCS: 96365; J1459

== ENCOUNTER → 2019-11-02 | Outpatient (REF) | payer MEDICARE, MEDICAID ==
[2019-11-03 15:57] LABS: APPEARANCE, URINE CLOUDY (CLEAR); BACTERIA, URINE AUTO 2+ (NEGATIVE); BILIRUBIN, URINE AUTO NEGATIVE (NEGATIVE); BLOOD, URINE BLOOD 1+ (NEGATIVE); COLOR, URINE YELLOW (YELLOW); GLUCOSE, URINE (UA) AUTO 3+ mg/dL (NEGATIVE); KETONE, URINE AUTO TRACE mg/dL (NEGATIVE); LEUKOCYTE ESTERASE, URINE AUTO 2+ (NEGATIVE); MUCUS, URINE SMALL (NEGATIVE); NITRITE, URINE AUTO POSITIVE (NEGATIVE); PROTEIN, URINE AUTO NEGATIVE (NEGATIVE); RBC, URINE AUTO 9 /HPF (0-3); SPECIFIC GRAVITY URINE AUTO 1.014 (1.002-1.035); SQUAMOUS EPITHELIAL CELL UR AU 2 /HPF (0-6); UROBILINOGEN, URINE AUTO 0.2 mg/dL (0.0-2.0); WBC, URINE AUTO 90 /HPF (0-3)
== END ==
LOC: SKLAB5 15:12
DX: R30.9 Painful micturition, unspecified (principal)

== ENCOUNTER → 2019-11-08 | Outpatient (REF) | payer MEDICARE, MEDICAID ==
[2019-11-08 10:22] LABS: HEMATOCRIT 36.3 % (36.0-47.0); HEMOGLOBIN 10.9 g/dl (12.0-15.5); MEAN CORPUSCULAR HEMOGLOBIN 24.7 pg (27.0-33.0); MEAN CORPUSCULAR VOLUME 82.3 fl (80.0-96.0); PLATELET COUNT, AUTOMATED 183 10^3/uL (150-450); RED BLOOD COUNT 4.41 10^6/uL (4.00-5.40); WHITE BLOOD COUNT 6.3 10^3/uL (4.0-10.0)
[2019-11-08 11:12] LABS: BLOOD UREA NITROGEN 12 MG/DL (7-18); CALCIUM LEVEL 8.7 MG/DL (8.8-10.2); CARBON DIOXIDE LEVEL 33 MEQ/L (21-32); CHLORIDE LEVEL 107 MEQ/L (98-107); CHOLESTEROL LEVEL 162 MG/DL (<200); CHOLESTEROL RISK RATIO 5.225 (<5); CREATININE FOR GFR 0.29 MG/DL (0.55-1.30); GLOMERULAR FILTRATION RATE > 60.0 (>45); GLUCOSE, FASTING 95 MG/DL (70-100); HDL CHOLESTEROL 31 MG/DL (>40); LDL CHOLESTEROL 58 MG/DL (<100); NON-HDL-C 131 MG/DL; POTASSIUM SERUM 4.1 MEQ/L (3.5-5.1); SODIUM LEVEL 143 MEQ/L (136-145); TRIGLYCERIDES LEVEL 366 MG/DL (<150)
== END ==
LOC: SKLAB5 06:38
DX: G35 Multiple sclerosis (principal); D64.9 Anemia, unspecified

== ENCOUNTER → 2019-11-15 | Outpatient (REF) | payer MEDICARE, MEDICAID ==
[2019-11-19 16:09] LABS: Methylmalonic Acid 221 nmol/L (0-378)
== END ==
LOC: SKLAB5 07:13
DX: D64.9 Anemia, unspecified (principal)

== ENCOUNTER 2019-11-23 13:30 | Outpatient (CLI) | payer MEDICARE, MEDICAID ==
[~2019-11-23] VITALS: Ht 165.1 cm; Wt 76.0 kg
[~2019-11-23 13:30] MED LIST changes: +IMMUNE GLOBULIN 10% 10 GM in IV 1 EA IV ONE; +IMMUNE GLOBULIN 10% 20 GM in IV 1 EA IV ONE; +IMMUNE GLOBULIN 10% 5 GM in IV 1 EA IV ONE
[2019-11-23 13:40] VITALS: BP 170/68
[2019-11-23] MEDS ORDERED: IMMUNE GLOBULIN 10% 10GM 100ML BOTTLE (PRIVIGEN) (J1459 PER 500MG) As Ordered ONE (14:33)
[2019-11-23] MEDS ORDERED: IMMUNE GLOBULIN 10% 20GM 200ML BOTTLE (PRIVIGEN) (J1459 PER 500MG) As Ordered ONE (14:33)
[2019-11-23] MEDS ORDERED: IMMUNE GLOBULIN 10% 5GM 50ML BOTTLE (PRIVIGEN) (J1459 PER 500MG) As Ordered ONE (14:33)
[2019-11-23 15:05] VITALS: BP 143/66
[2019-11-23 15:35] VITALS: BP 134/63
[2019-11-23 16:05] VITALS: BP 122/62
[2019-11-23 16:57] VITALS: BP 128/66
[2019-11-23 17:35] VITALS: BP 141/81
== END 2019-11-23 17:45 ==
LOC: M INFU 13:30
PROVIDERS: ATTEND Family Medicine
DX: G35 Multiple sclerosis (principal)
CPT/HCPCS: 96365; 96366; J1459

== ENCOUNTER 2019-12-21 13:20 | Outpatient (CLI) | payer MEDICARE, MEDICAID ==
[~2019-12-21] VITALS: Ht 165.1 cm; Wt 76.0 kg
[~2019-12-21 13:20] MED LIST changes: -IMMUNE GLOBULIN 10% 10 GM in IV 1 EA IV ONE; -IMMUNE GLOBULIN 10% 20 GM in IV 1 EA IV ONE; -IMMUNE GLOBULIN 10% 5 GM in IV 1 EA IV ONE
[2019-12-21] MEDS ORDERED: IMMUNE GLOBULIN 10% 20 GM in IV 1 EA IV ONE (13:30)
[2019-12-21] MEDS ORDERED: IMMUNE GLOBULIN 10% 5 GM in IV 1 EA IV ONE (13:30)
[2019-12-21] MEDS ORDERED: IMMUNE GLOBULIN 10% 10 GM in IV 1 EA IV ONE (13:30)
[2019-12-21 13:35] VITALS: BP 119/56
[2019-12-21 14:14] VITALS: BP 126/64
[2019-12-21 14:47] VITALS: BP 131/66
[2019-12-21 15:15] VITALS: BP 124/60
[2019-12-21 16:41] VITALS: BP 136/63
== END 2019-12-21 16:40 | disposition home or self-care (01) ==
LOC: M INFU 13:20
PROVIDERS: ATTEND Family Medicine
DX: G35 Multiple sclerosis (principal)
CPT/HCPCS: 96365; 96366; J1459

== ENCOUNTER → 2020-01-10 | Outpatient (REF) | payer MEDICARE, MEDICAID | LOC: SKLAB5 08:01 | DX: D64.9 Anemia, unspecified (principal) ==

== ENCOUNTER → 2020-01-11 | Outpatient (CLI) | payer MEDICARE, MEDICAID ==
--- NOTE | 2020-01-11 14:46 | REP ---
INDICATION: BREAST CANCER SCREENING,UNABLE TO GET MAMMOGRAM. COMPARISON: None TECHNIQUE: Real-time sonographic evaluation of bilateral breasts performed. FINDINGS: There are multiple lymph nodes in the right axilla which appear morphologically unremarkable with normal short axis dimensions under 1 cm. Reportedly there tenderness in the upper outer quadrant of the left breast. There is asymmetric heterogeneous increased fibroglandular tissue in this region compared to the right side. No discrete cystic or solid mass is seen in this region, or in any other portion of either breast. IMPRESSION: BIRADS/ACR category 0 incomplete. Heterogeneous asymmetric thickened fibroglandular tissue in the upper-outer quadrant of the left breast where the patient reports pain and tenderness. Although no discrete cystic or solid nodule is seen underlying pathology cannot be excluded. Recommend further evaluation with bilateral mammogram and /or MRI. If neither of these studies are able to be performed, it might be prudent to proceed directly to ultrasound-guided biopsy of the asymmetric tissue in the upper-outer quadrant of the left breast. RECOMMENDATION: As above. <Electronically signed by Grayson Ball > 01/11/20 [id number]
== END ==
LOC: M WHC 10:00
PROVIDERS: ATTEND Nurse Practitioner Adult Health
DX: Z12.39 Encounter for other screening for malignant neoplasm of breast (principal); N64.4 Mastodynia; R92.8 Other abnormal and inconclusive findings on diagnostic imaging of breast

== ENCOUNTER → 2020-01-17 | Outpatient (CLI) | payer MEDICARE, MEDICAID | LOC: SKLAB5 08:00 | DX: Z20.828 Contact with and (suspected) exposure to other viral communicable diseases (principal) ==

== ENCOUNTER 2020-01-22 11:49 | Outpatient (CLI) | payer MEDICARE, MEDICAID ==
[~2020-01-22 11:49] MED LIST changes: +IMMUNE GLOBULIN 10% 10 GM in IV 1 EA IV ONE; +IMMUNE GLOBULIN 10% 20 GM in IV 1 EA IV ONE; +IMMUNE GLOBULIN 10% 5 GM in IV 1 EA IV ONE
[2020-01-22 12:25] VITALS: BP 167/77
[2020-01-22] MEDS ORDERED: IMMUNE GLOBULIN 10% 5 GM in IV 1 EA IV ONE (12:30)
[2020-01-22] MEDS ORDERED: IMMUNE GLOBULIN 10% 10 GM in IV 1 EA IV ONE (12:30)
[2020-01-22] MEDS ORDERED: IMMUNE GLOBULIN 10% 20 GM in IV 1 EA IV ONE (12:30)
[2020-01-22 13:10] VITALS: BP 148/70
[2020-01-22 13:40] VITALS: BP 151/75
[2020-01-22 14:10] VITALS: BP 148/72
[2020-01-22 15:55] VITALS: BP 138/69
== END 2020-01-22 16:00 | disposition home or self-care (01) ==
LOC: M INFU 11:49
PROVIDERS: ATTEND Family Medicine
DX: G35 Multiple sclerosis (principal); Z88.0 Allergy status to penicillin; Z88.1 Allergy status to other antibiotic agents; Z88.2 Allergy status to sulfonamides; Z88.8 Allergy status to other drugs, medicaments and biological substances
CPT/HCPCS: 96365; 96366; J1459

== ENCOUNTER → 2020-01-23 | Outpatient (REF) | payer MEDICARE, MEDICAID ==
[~2020-01-23] MED LIST changes: -IMMUNE GLOBULIN 10% 10 GM in IV 1 EA IV ONE; -IMMUNE GLOBULIN 10% 20 GM in IV 1 EA IV ONE; -IMMUNE GLOBULIN 10% 5 GM in IV 1 EA IV ONE; +SIME80CH5 PO; -SIME80TA PO
== END ==
LOC: SKLAB5 01-22 14:21 → EDSTATUS 02-23 14:37
DX: Z20.828 Contact with and (suspected) exposure to other viral communicable diseases (principal)

== ENCOUNTER → 2020-01-28 | Outpatient (REF) | payer MEDICARE, MEDICAID ==
[~2020-01-28] MED LIST changes: -SIME80CH5 PO; +SIME80TA PO
[2020-01-28 13:49] LABS: AMORPHOUS SEDIMENT SMALL (NEGATIVE); APPEARANCE, URINE CLOUDY (CLEAR); BACTERIA, URINE AUTO 2+ (NEGATIVE); BILIRUBIN, URINE AUTO NEGATIVE (NEGATIVE); BLOOD, URINE BLOOD NEGATIVE (NEGATIVE); COLOR, URINE YELLOW (YELLOW); GLUCOSE, URINE (UA) AUTO NEGATIVE (NEGATIVE); KETONE, URINE AUTO TRACE mg/dL (NEGATIVE); LEUKOCYTE ESTERASE, URINE AUTO 2+ (NEGATIVE); NITRITE, URINE AUTO POSITIVE (NEGATIVE); PROTEIN, URINE AUTO NEGATIVE (NEGATIVE); RBC, URINE AUTO 15 /HPF (0-3); SPECIFIC GRAVITY URINE AUTO 1.014 (1.002-1.035); SQUAMOUS EPITHELIAL CELL UR AU 3 /HPF (0-6); WBC, URINE AUTO TNTC /HPF (0-3)
== END ==
LOC: SKLAB5 12:49
DX: R30.0 Dysuria (principal)

== ENCOUNTER → 2020-01-30 | Outpatient (REF) | payer MEDICARE, MEDICAID ==
[~2020-01-30] MED LIST changes: +SIME80CH5 PO; -SIME80TA PO
== END ==
LOC: SKLAB5 08:00
PROVIDERS: ATTEND Internal Medicine
DX: Z20.828 Contact with and (suspected) exposure to other viral communicable diseases (principal)

== ENCOUNTER → 2020-02-06 | Outpatient (REF) | payer MEDICARE, MEDICAID | LOC: SKLAB5 08:00 | PROVIDERS: ATTEND Internal Medicine | DX: Z20.828 Contact with and (suspected) exposure to other viral communicable diseases (principal) ==

== ENCOUNTER → 2020-02-07 | Outpatient (REF) | payer MEDICARE, MEDICAID ==
[~2020-02-07] MED LIST changes: -SIME80CH5 PO; +SIME80TA PO
[2020-02-07 08:15] LABS: HEMATOCRIT 35.5 % (36.0-47.0); HEMOGLOBIN 10.6 g/dl (12.0-15.5); MEAN CORPUSCULAR HEMOGLOBIN 24.2 pg (27.0-33.0); MEAN CORPUSCULAR HGB CONC 29.9 g/dl (32.0-36.5); MEAN CORPUSCULAR VOLUME 81.1 fl (80.0-96.0); PLATELET COUNT, AUTOMATED 202 10^3/uL (150-450); RED BLOOD COUNT 4.38 10^6/uL (4.00-5.40)
[2020-02-07 08:38] LABS: HEMOGLOBIN A1c 6.8 %
[2020-02-07 08:52] LABS: BLOOD UREA NITROGEN 11 MG/DL (7-18); CALCIUM LEVEL 8.8 MG/DL (8.8-10.2); CARBON DIOXIDE LEVEL 35 MEQ/L (21-32); CHLORIDE LEVEL 103 MEQ/L (98-107); CREATININE FOR GFR 0.39 MG/DL (0.55-1.30); GLOMERULAR FILTRATION RATE > 60.0 (>45); GLUCOSE, FASTING 161 MG/DL (70-100); SODIUM LEVEL 140 MEQ/L (136-145)
== END ==
LOC: SKLAB5 07:58
DX: G35 Multiple sclerosis (principal); E11.9 Type 2 diabetes mellitus without complications

== ENCOUNTER → 2020-02-13 | Outpatient (REF) | payer MEDICARE, MEDICAID | LOC: SKLAB5 06:31 | DX: Z20.828 Contact with and (suspected) exposure to other viral communicable diseases (principal) ==

== ENCOUNTER → 2020-02-20 | Outpatient (REF) | payer MEDICARE, MEDICAID ==
[2020-02-20 19:53] LABS: BLOOD UREA NITROGEN 11 MG/DL (7-18); CALCIUM LEVEL 8.3 MG/DL (8.8-10.2); CARBON DIOXIDE LEVEL 33 MEQ/L (21-32); CHLORIDE LEVEL 100 MEQ/L (98-107); CREATININE FOR GFR 0.48 MG/DL (0.55-1.30); GLOMERULAR FILTRATION RATE > 60.0 (>45); GLUCOSE, FASTING 251 MG/DL (70-100); HEMOGLOBIN 11.4 g/dl (12.0-15.5); MEAN CORPUSCULAR HEMOGLOBIN 24.1 pg (27.0-33.0); MEAN CORPUSCULAR VOLUME 80.3 fl (80.0-96.0); PLATELET COUNT, AUTOMATED 233 10^3/uL (150-450); POTASSIUM SERUM 4.2 MEQ/L (3.5-5.1); RED BLOOD COUNT 4.73 10^6/uL (4.00-5.40); SODIUM LEVEL 140 MEQ/L (136-145); WHITE BLOOD COUNT 6.6 10^3/uL (4.0-10.0)
== END ==
LOC: SKLAB5 09:02
DX: L03.90 Cellulitis, unspecified (principal); Z20.828 Contact with and (suspected) exposure to other viral communicable diseases
CPT/HCPCS: 36415; 80048; 85027; U0003

== ENCOUNTER 2020-02-21 13:00 | Outpatient (CLI) | payer MEDICARE, MEDICAID ==
[~2020-02-21] VITALS: Ht 165.1 cm; Wt 74.8 kg
[2020-02-21 13:05] VITALS: BP 138/78
[2020-02-21] MEDS ORDERED: IMMUNE GLOBULIN 10% 10 GM in IV 1 EA IV ONE (13:30)
[2020-02-21] MEDS ORDERED: IMMUNE GLOBULIN 10% 20 GM in IV 1 EA IV ONE (13:30)
[2020-02-21] MEDS ORDERED: IMMUNE GLOBULIN 10% 5 GM in IV 1 EA IV ONE (13:30)
[2020-02-21 14:10] VITALS: BP 144/66
[2020-02-21 14:40] VITALS: BP 138/70
[2020-02-21 15:10] VITALS: BP 142/63
[2020-02-21 16:53] VITALS: BP 132/66
== END 2020-02-21 17:00 | disposition home or self-care (01) ==
LOC: M INFU 13:00
PROVIDERS: ATTEND Family Medicine
DX: G35 Multiple sclerosis (principal); Z88.0 Allergy status to penicillin; Z88.1 Allergy status to other antibiotic agents; Z88.2 Allergy status to sulfonamides
CPT/HCPCS: 96365; 96366; J1459

== ENCOUNTER → 2020-02-27 | Outpatient (REF) | payer MEDICARE, MEDICAID | LOC: SKLAB5 05:51 | DX: Z20.828 Contact with and (suspected) exposure to other viral communicable diseases (principal) ==

== ENCOUNTER → 2020-03-03 | Outpatient (REF) | payer MEDICARE, MEDICAID | LOC: SKLAB5 18:59 | PROVIDERS: ATTEND Family Medicine | DX: D64.9 Anemia, unspecified (principal) ==

== ENCOUNTER → 2020-03-05 | Outpatient (REF) | payer MEDICARE, MEDICAID ==
[~2020-03-05] MED LIST changes: +SIME80CH5 PO; -SIME80TA PO
== END ==
LOC: SKLAB5 08:00
PROVIDERS: ATTEND Family Medicine
DX: D64.9 Anemia, unspecified (principal)

== ENCOUNTER → 2020-03-05 | Outpatient (REF) | payer MEDICARE, MEDICAID | LOC: SKLAB5 06:23 | DX: D64.9 Anemia, unspecified (principal) ==

== ENCOUNTER → 2020-03-06 | Outpatient (REF) | payer MEDICARE, MEDICAID ==
[~2020-03-06] MED LIST changes: -SIME80CH5 PO; +SIME80TA PO
== END ==
LOC: SKLAB5 03:32
PROVIDERS: ATTEND Family Medicine
DX: D64.9 Anemia, unspecified (principal)

== ENCOUNTER → 2020-03-12 | Outpatient (REF) | payer MEDICARE, MEDICAID | LOC: SKLAB5 06:55 | DX: Z11.52 Encounter for screening for COVID-19 (principal) ==

== ENCOUNTER → 2020-03-19 | Outpatient (REF) | payer MEDICARE, MEDICAID | LOC: SKLAB5 06:32 | PROVIDERS: ATTEND Internal Medicine | DX: Z20.822 Contact with and (suspected) exposure to COVID-19 (principal) ==

== ENCOUNTER 2020-03-20 13:04 | Outpatient (CLI) | payer MEDICARE, MEDICAID ==
[~2020-03-20] VITALS: Ht 170.2 cm; Wt 74.8 kg
[2020-03-20] MEDS ORDERED: IMMUNE GLOBULIN 10% 5 GM in IV 1 EA IV ONE (14:00)
[2020-03-20] MEDS ORDERED: IMMUNE GLOBULIN 10% 10 GM in IV 1 EA IV ONE (14:00)
[2020-03-20] MEDS ORDERED: IMMUNE GLOBULIN 10% 20 GM in IV 1 EA IV ONE (14:00)
[2020-03-20 14:35] VITALS: BP 122/70
[2020-03-20 14:45] VITALS: BP 121/64
[2020-03-20 15:15] VITALS: BP 117/61
[2020-03-20 15:45] VITALS: BP 113/63
[2020-03-20 17:13] VITALS: BP 121/70
== END 2020-03-20 17:05 | disposition home or self-care (01) ==
LOC: M INFU 13:04
PROVIDERS: ATTEND Family Medicine
DX: G35 Multiple sclerosis (principal); Z88.0 Allergy status to penicillin; Z88.1 Allergy status to other antibiotic agents; Z88.2 Allergy status to sulfonamides; Z88.8 Allergy status to other drugs, medicaments and biological substances
CPT/HCPCS: 96365; 96366; J1459

== ENCOUNTER → 2020-03-25 | Outpatient (CLI) | payer MEDICARE, MEDICAID ==
[~2020-03-25] MED LIST changes: +SIME80CH5 PO; -SIME80TA PO
== END ==
LOC: M WHCPRO 08:51
PROVIDERS: ATTEND Nurse Practitioner Adult Health
DX: N63.21 Unspecified lump in the left breast, upper outer quadrant (principal); G35 Multiple sclerosis; Z53.8 Procedure and treatment not carried out for other reasons

== ENCOUNTER → 2020-03-26 | Outpatient (REF) | payer MEDICARE, MEDICAID | LOC: SKLAB5 07:09 | PROVIDERS: ATTEND Internal Medicine | DX: Z20.822 Contact with and (suspected) exposure to COVID-19 (principal) ==

== ENCOUNTER → 2020-04-02 | Outpatient (REF) | payer MEDICARE, MEDICAID | LOC: SKLAB5 07:14 | PROVIDERS: ATTEND Internal Medicine | DX: Z20.822 Contact with and (suspected) exposure to COVID-19 (principal) ==

== ENCOUNTER → 2020-04-09 | Outpatient (REF) | payer MEDICARE, MEDICAID ==
[~2020-04-09] MED LIST changes: -SIME80CH5 PO; +SIME80TA PO
== END ==
LOC: SKLAB5 07:16
PROVIDERS: ATTEND Internal Medicine
DX: Z20.822 Contact with and (suspected) exposure to COVID-19 (principal)

== ENCOUNTER → 2020-04-15 | Outpatient (CLI) | payer MEDICARE, MEDICAID ==
[~2020-04-15] MED LIST changes: +SIME80CH5 PO; -SIME80TA PO
[2020-04-15 12:12] VITALS: BP 178/82
--- NOTE | 2020-04-15 18:44 | REP ---
INDICATION: ASYMMETRIC LT BREAST TISSUE,US GUIDED BIOPSY. COMPARISON: None. TECHNIQUE: The procedure was performed under the general supervision of Dr. Ball. The patient has a history of heterogeneous asymmetric thickened fibroglandular tissue in the upper-outer quadrant of the left breast seen on a previous ultrasound dated 01/11/2020. The risks and benefits of the procedure were explained to the patient and informed consent was obtained. The left breast asymmetric tissue was localized using ultrasound guidance. The skin was prepped and draped in a sterile fashion. 1% Xylocaine was used as a local anesthetic. Using ultrasound guidance a 14-gauge coaxial needle biopsy system was inserted and6 core biopsy samples were obtained. A marker clip (HydroMARK shape 4) was placed at the biopsy site The patient tolerated the procedure well and there were no immediate complications. After the appropriate amount of monitored convalescence, the patient was discharged from the department. FINDINGS: None IMPRESSION: Ultrasound-guided left breast biopsy with a HydroMARK shape 4 clip placement. <Electronically signed by Ramy Blankenship > 04/15/20 [id number] <Electronically signed by Grayson Ball > 04/15/20 [id number]
== END ==
LOC: M WHCPRO 09:48
PROVIDERS: ATTEND Nurse Practitioner Adult Health
DX: N60.12 Diffuse cystic mastopathy of left breast (principal); N63.21 Unspecified lump in the left breast, upper outer quadrant

== ENCOUNTER 2020-04-16 13:08 | Outpatient (CLI) | payer MEDICARE, MEDICAID ==
[~2020-04-16] VITALS: Ht 165.1 cm; Wt 70.2 kg
[2020-04-16 13:15] VITALS: BP 136/75
[2020-04-16] MEDS ORDERED: IMMUNE GLOBULIN 10% 20 GM in IV 1 EA IV ONE (14:00)
[2020-04-16] MEDS ORDERED: IMMUNE GLOBULIN 10% 10 GM in IV 1 EA IV ONE (14:00)
[2020-04-16] MEDS ORDERED: IMMUNE GLOBULIN 10% 5 GM in IV 1 EA IV ONE (14:00)
[2020-04-16 14:51] VITALS: BP 150/73
[2020-04-16 15:45] VITALS: BP 131/63
[2020-04-16 17:40] VITALS: BP 142/68
== END 2020-04-16 17:40 | disposition home or self-care (01) ==
LOC: M INFU 13:08
PROVIDERS: ATTEND Family Medicine
DX: G35 Multiple sclerosis (principal); Z88.0 Allergy status to penicillin; Z88.1 Allergy status to other antibiotic agents; Z88.2 Allergy status to sulfonamides; Z20.822 Contact with and (suspected) exposure to COVID-19
CPT/HCPCS: 96365; 96366; J1459; U0003

== ENCOUNTER → 2020-04-16 | Outpatient (REF) | payer MEDICARE, MEDICAID | LOC: SKLAB5 06:17 | PROVIDERS: ATTEND Internal Medicine | DX: Z20.822 Contact with and (suspected) exposure to COVID-19 (principal) ==

== ENCOUNTER → 2020-04-21 | Outpatient (REF) | payer MEDICARE, MEDICAID ==
--- NOTE | 2020-04-21 12:43 | REP ---
INDICATION: BACK PAIN. COMPARISON: Comparison lumbar spine images are from January 06, 2017.. TECHNIQUE: 6 views of the lumbar spine are provided. FINDINGS: There is diffuse osteopenia. There is minimal anterior wedge compression deformity with partial collapse of the superior endplate at both L1 and L2. These changes are chronic and stable when compared with the January 06, 2017 prior study. There is a minimal collapse of the superior endplate of T10. This was not previously included in the imaging field of view but the it does not have an acute appearance. Vascular calcification is noted in a normal caliber aorta. Vertebral body heights are otherwise preserved in the lumbar spine. Disc spaces are narrowed at L4-5, L3-4, and L2-3 unchanged. Other disc spaces are preserved. Pedicles and posterior elements are intact. There is no evidence of spondylolysis or spondylolisthesis. There are surgical clips in right upper quadrant of the abdomen. There are osteoarthritic facet changes at L5-S1 bilaterally and to a lesser extent at L4-5. IMPRESSION: Degenerative disc disease and some osteoarthritic facet disease in the lower lumbar spine. Mild wedging L1 and L2 unchanged. No acute abnormality. <Electronically signed by Theodore Mcnulty > 04/21/20 [id number]
--- NOTE | 2020-04-21 12:44 | REP ---
INDICATION: BACK PAIN. COMPARISON: Comparison study January 06, 2017.. TECHNIQUE: Three views of the thoracic spine are obtained. FINDINGS: Thoracic vertebral body heights are preserved. Alignment is normal. No acute fracture or collapse is seen. Pedicles and posterior elements appear intact. No paravertebral soft tissue mass is seen. Right hemidiaphragm remains elevated as before. IMPRESSION: No acute bony abnormality. <Electronically signed by Theodore Mcnulty > 04/21/20 1624
== END ==
LOC: SKLAB5 11:43
DX: M51.36 Other intervertebral disc degeneration, lumbar region (principal)

== ENCOUNTER → 2020-04-23 | Outpatient (REF) | payer MEDICARE, MEDICAID | LOC: SKLAB5 06:29 | PROVIDERS: ATTEND Internal Medicine | DX: Z20.822 Contact with and (suspected) exposure to COVID-19 (principal) ==

== ENCOUNTER → 2020-04-30 | Outpatient (REF) | payer MEDICARE, MEDICAID | LOC: SKLAB5 08:00 | PROVIDERS: ATTEND Internal Medicine | DX: Z20.822 Contact with and (suspected) exposure to COVID-19 (principal) ==

== ENCOUNTER → 2020-05-05 | Outpatient (CLI) | payer MEDICARE, MEDICAID ==
--- NOTE | 2020-05-05 09:50 | REPVR ---
PROCEDURE INFORMATION: Exam: MR Thoracic Spine Without Contrast Exam date and time: 05/05/2020 8:53 AM Age: 69 years old Clinical indication: Pain and condition or disease; Other: Ms, ; pain in thoracic spine; Other: Unknown; Patient HX: Loss of flexibility and pain and also HX of ms. ; Additional info: Back pain TECHNIQUE: Imaging protocol: Multiplanar magnetic resonance images of the thoracic spine without contrast. COMPARISON: CR SPINE THORACIC AP, LAT 04/21/2020 12:18 PM FINDINGS: Vertebrae: There is accentuation of the normal thoracic kyphosis. There is mild superior endplate depression at T2. There is mild to moderate ventral wedging of the T6 body. There is mild ventral wedging of the T8 body. There is focal superior endplate depression at T10 with mild to moderate loss of height. There is no edema to suggest acuity. Spinal cord: There are multifocal T2/FLAIR hyperintensities within the substance of the cord at T5/6, is going on T8, T9/10 and T10/11 with associated cord thinning, compatible with submitted history of demyelinating disease. Discs/Spinal canal/Neural foramina: There are multilevel disc bulges. There is no overt canal or neural foraminal compromise. Soft tissues: Unremarkable. IMPRESSION: 1. Findings compatible with submitted history of multiple sclerosis, with multilevel demyelinating plaques. 2. Multilevel chronic [id number] compression deformities. Electronically signed by: Bell Wall On 05/05/2020 09:51:18 AM
--- NOTE | 2020-05-05 10:12 | REPVR ---
PROCEDURE INFORMATION: Exam: MR Lumbar Spine Without Contrast Exam date and time: 05/05/2020 8:53 AM Age: 69 years old Clinical indication: Low back pain; Patient HX: Loss of flexibility and pain and also HX of ms. ; Additional info: Back pain/ in the CT waiting area TECHNIQUE: Imaging protocol: Multiplanar magnetic resonance images of the lumbar spine without intravenous contrast. COMPARISON: CR Spine. Lumbosacral, complete 04/21/2020 12:18 PM FINDINGS: Vertebrae: There are prominent Schmorl's nodes along the superior endplates of L1, L2 and L3. There is a jzvs-kt-dmanrrhl L1 central endplate fracture with increased edema, worrisome for acute or subacute time course. There is mild loss of height of the L2 body and mild superior endplate depression at L4, chronic. Spinal cord: Normal signal. No cord compression. L1-L2: There is shallow disc bulging. There is mild facet hypertrophy. The spinal canal and neural foramina are patent. L2-L3: There is shallow disc bulging. There is mild facet and ligamentous hypertrophy. The spinal canal and neural foramina are patent. L3-L4: There is shallow disc bulging. There is ygyt-ax-[id number] facet hypertrophy. The spinal canal and neural foramina are patent. L4-L5: There is shallow disc bulging. There is mild facet and ligamentous hypertrophy. There is mild bilateral neural foraminal narrowing. L5-S1: There is shallow disc bulging. There is moderate facet hypertrophy. The spinal canal and neural foramina are patent. Soft tissues: There is atrophy of the distal paraspinal musculature. IMPRESSION: 1. Acute/subacute [id number] L1 compression fracture. 2. Degenerative disc disease and spondylosis without overt canal or neural foraminal compromise. Electronically signed by: Bell Wall On 05/05/2020 10:12:27 AM
== END ==
LOC: M RAD 07:01
PROVIDERS: ATTEND Nurse Practitioner Adult Health
DX: M51.46 Schmorl's nodes, lumbar region (principal); M51.26 Other intervertebral disc displacement, lumbar region; M51.27 Other intervertebral disc displacement, lumbosacral region

== ENCOUNTER → 2020-05-08 | Outpatient (REF) | payer MEDICARE, MEDICAID ==
[2020-05-08 08:52] LABS: HEMOGLOBIN 11.8 g/dl (12.0-15.5); MEAN CORPUSCULAR HEMOGLOBIN 26.2 pg (27.0-33.0); MEAN CORPUSCULAR HGB CONC 31.1 g/dl (32.0-36.5); MEAN CORPUSCULAR VOLUME 84.3 fl (80.0-96.0); PLATELET COUNT, AUTOMATED 231 10^3/uL (150-450); RED BLOOD COUNT 4.51 10^6/uL (4.00-5.40); WHITE BLOOD COUNT 6.9 10^3/uL (4.0-10.0)
[2020-05-08 09:16] LABS: BLOOD UREA NITROGEN 11 MG/DL (7-18); CALCIUM LEVEL 8.6 MG/DL (8.8-10.2); CARBON DIOXIDE LEVEL 34 MEQ/L (21-32); CHLORIDE LEVEL 105 MEQ/L (98-107); CREATININE FOR GFR 0.34 MG/DL (0.55-1.30); GLOMERULAR FILTRATION RATE > 60.0 (>45); GLUCOSE, FASTING 137 MG/DL (70-100); POTASSIUM SERUM 4.1 MEQ/L (3.5-5.1); SODIUM LEVEL 144 MEQ/L (136-145)
== END ==
LOC: SKLAB5 06:35
PROVIDERS: ATTEND Internal Medicine
DX: G35 Multiple sclerosis (principal); D64.9 Anemia, unspecified; Z20.822 Contact with and (suspected) exposure to COVID-19; Z79.899 Other long term (current) drug therapy
CPT/HCPCS: 36415; 80048; 82306; 85027; U0003

== ENCOUNTER 2020-05-14 13:00 | Outpatient (CLI) | payer MEDICARE, MEDICAID ==
[~2020-05-14] VITALS: Ht 170.2 cm; Wt 74.8 kg
[2020-05-14 13:05] VITALS: BP 123/56
[2020-05-14] MEDS ORDERED: IMMUNE GLOBULIN 10% 10 GM in IV 1 EA IV ONE (13:30)
[2020-05-14] MEDS ORDERED: IMMUNE GLOBULIN 10% 5 GM in IV 1 EA IV ONE (13:30)
[2020-05-14] MEDS ORDERED: IMMUNE GLOBULIN 10% 20 GM in IV 1 EA IV ONE (13:30)
[2020-05-14 15:00] VITALS: BP 119/60
[2020-05-14 17:02] VITALS: BP 126/56
== END 2020-05-14 17:20 | disposition home or self-care (01) ==
LOC: M INFU 13:00
PROVIDERS: ATTEND Family Medicine
DX: G35 Multiple sclerosis (principal); Z88.0 Allergy status to penicillin; Z88.1 Allergy status to other antibiotic agents; Z88.2 Allergy status to sulfonamides; Z88.8 Allergy status to other drugs, medicaments and biological substances

== ENCOUNTER → 2020-05-14 | Outpatient (REF) | payer MEDICARE, MEDICAID | LOC: SKLAB5 06:22 | PROVIDERS: ATTEND Internal Medicine | DX: G35 Multiple sclerosis (principal); Z88.0 Allergy status to penicillin; Z88.1 Allergy status to other antibiotic agents; Z88.2 Allergy status to sulfonamides; Z88.8 Allergy status to other drugs, medicaments and biological substances; Z20.822 Contact with and (suspected) exposure to COVID-19 | CPT/HCPCS: 96365; 96366; J1459; U0003 ==

== ENCOUNTER → 2020-05-15 | Outpatient (REF) | payer MEDICARE, MEDICAID | LOC: SKLAB5 07:46 | DX: E83.51 Hypocalcemia (principal) ==

== ENCOUNTER → 2020-05-21 | Outpatient (REF) | payer MEDICARE, MEDICAID | LOC: SKLAB5 07:26 | PROVIDERS: ATTEND Internal Medicine | DX: Z20.822 Contact with and (suspected) exposure to COVID-19 (principal) ==

== ENCOUNTER → 2020-06-05 | Outpatient (REF) | payer MEDICARE, MEDICAID ==
[2020-06-05 13:01] LABS: HEMOGLOBIN A1c 6.1 %
== END ==
LOC: SKLAB5 12:47
DX: E11.9 Type 2 diabetes mellitus without complications (principal); Z79.899 Other long term (current) drug therapy

== ENCOUNTER → 2020-06-06 | Outpatient (REF) | payer MEDICARE, MEDICAID | LOC: SKLAB5 07:06 | PROVIDERS: ATTEND Internal Medicine | DX: Z20.822 Contact with and (suspected) exposure to COVID-19 (principal) ==

== ENCOUNTER 2020-06-11 13:24 | Outpatient (CLI) | payer MEDICARE, MEDICAID ==
[~2020-06-11] VITALS: Ht 170.2 cm; Wt 74.8 kg
[2020-06-11 13:30] VITALS: BP 141/70
[2020-06-11] MEDS ORDERED: IMMUNE GLOBULIN 10% 5 GM in IV 1 EA IV ONE (13:30)
[2020-06-11] MEDS ORDERED: IMMUNE GLOBULIN 10% 10 GM in IV 1 EA IV ONE (13:30)
[2020-06-11] MEDS ORDERED: IMMUNE GLOBULIN 10% 20 GM in IV 1 EA IV ONE (13:30)
[2020-06-11 14:30] VITALS: BP 134/64
[2020-06-11 15:30] VITALS: BP 138/61
[2020-06-11 17:00] VITALS: BP 130/62
== END 2020-06-11 17:05 | disposition home or self-care (01) ==
LOC: M INFU 13:24
PROVIDERS: ATTEND Family Medicine
DX: G35 Multiple sclerosis (principal); Z88.0 Allergy status to penicillin; Z88.1 Allergy status to other antibiotic agents; Z88.2 Allergy status to sulfonamides; Z88.8 Allergy status to other drugs, medicaments and biological substances
CPT/HCPCS: 96365; 96366; J1459

== ENCOUNTER → 2020-06-12 | Outpatient (REF) ==
[2020-06-12 20:15] LABS: APPEARANCE, URINE TURBID (CLEAR); BACTERIA, URINE AUTO 1+ (NEGATIVE); BILIRUBIN, URINE AUTO NEGATIVE (NEGATIVE); BLOOD, URINE BLOOD NEGATIVE (NEGATIVE); COLOR, URINE AMBER (YELLOW); GLUCOSE, URINE (UA) AUTO NEGATIVE (NEGATIVE); KETONE, URINE AUTO TRACE mg/dL (NEGATIVE); LEUKOCYTE ESTERASE, URINE AUTO 3+ (NEGATIVE); NITRITE, URINE AUTO POSITIVE (NEGATIVE); PROTEIN, URINE AUTO 1+ mg/dL (NEGATIVE); RBC, URINE AUTO 8 /HPF (0-3); SPECIFIC GRAVITY URINE AUTO 1.015 (1.002-1.035); SQUAMOUS EPITHELIAL CELL UR AU 18 /HPF (0-6); UROBILINOGEN, URINE AUTO 0.2 mg/dL (0.0-2.0); WBC, URINE AUTO TNTC /HPF (0-3)
== END ==
LOC: SKLAB5 18:54
PROVIDERS: ATTEND Nurse Practitioner Adult Health
DX: N39.0 Urinary tract infection, site not specified (principal)

== ENCOUNTER 2020-07-09 13:21 | Outpatient (CLI) | payer MEDICARE, MEDICAID ==
[~2020-07-09] VITALS: Ht 167.6 cm; Wt 74.5 kg
[~2020-07-09 13:21] MED LIST changes: +IMMUNE GLOBULIN 10% 10 GM in IV 1 EA IV ONE; +IMMUNE GLOBULIN 10% 20 GM in IV 1 EA IV ONE; +IMMUNE GLOBULIN 10% 5 GM in IV 1 EA IV ONE
[2020-07-09 13:30] VITALS: BP 127/65
[2020-07-09 14:30] VITALS: BP 136/68
[2020-07-09 15:15] VITALS: BP 133/60
[2020-07-09 16:00] VITALS: BP 136/68
[2020-07-09 17:35] VITALS: BP 150/73
== END 2020-07-09 17:35 | disposition home or self-care (01) ==
LOC: M INFU 13:21
PROVIDERS: ATTEND Family Medicine
DX: G35 Multiple sclerosis (principal); Z88.1 Allergy status to other antibiotic agents; Z88.0 Allergy status to penicillin; Z88.2 Allergy status to sulfonamides
CPT/HCPCS: 96365; 96366; J1459

== ENCOUNTER 2020-08-06 13:24 | Outpatient (CLI) | payer MEDICARE, MEDICAID ==
[2020-08-06 13:00] VITALS: BP 142/67
[~2020-08-06 13:24] MED LIST changes: -IMMUNE GLOBULIN 10% 10 GM in IV 1 EA IV ONE; -IMMUNE GLOBULIN 10% 20 GM in IV 1 EA IV ONE; -IMMUNE GLOBULIN 10% 5 GM in IV 1 EA IV ONE
[2020-08-06] MEDS ORDERED: IMMUNE GLOBULIN 10% 10 GM in IV 1 EA IV ONE (13:30)
[2020-08-06] MEDS ORDERED: IMMUNE GLOBULIN 10% 5 GM in IV 1 EA IV ONE (13:30)
[2020-08-06] MEDS ORDERED: IMMUNE GLOBULIN 10% 20 GM in IV 1 EA IV ONE (13:30)
[2020-08-06 14:00] VITALS: BP 138/78
[2020-08-06 14:31] VITALS: BP 138/72
[2020-08-06 15:00] VITALS: BP 133/71
[2020-08-06 16:00] VITALS: BP 136/69
[2020-08-06 16:30] VITALS: BP 129/72
== END 2020-08-06 16:30 | disposition home or self-care (01) ==
LOC: M INFU 13:24
PROVIDERS: ATTEND Family Medicine
DX: G35 Multiple sclerosis (principal); Z88.0 Allergy status to penicillin; Z88.1 Allergy status to other antibiotic agents; Z88.2 Allergy status to sulfonamides
CPT/HCPCS: 96365; 96366; J1459

== ENCOUNTER → 2020-08-07 | Outpatient (REF) | payer MEDICARE, MEDICAID ==
[2020-08-07 09:25] LABS: HEMATOCRIT 38.9 % (36.0-47.0); HEMOGLOBIN 12.1 g/dl (12.0-15.5); MEAN CORPUSCULAR HEMOGLOBIN 26.2 pg (27.0-33.0); MEAN CORPUSCULAR HGB CONC 31.1 g/dl (32.0-36.5); MEAN CORPUSCULAR VOLUME 84.4 fl (80.0-96.0); PLATELET COUNT, AUTOMATED 161 10^3/uL (150-450); RED BLOOD COUNT 4.61 10^6/uL (4.00-5.40); WHITE BLOOD COUNT 4.4 10^3/uL (4.0-10.0)
[2020-08-07 09:48] LABS: BLOOD UREA NITROGEN 11 MG/DL (7-18); CALCIUM LEVEL 8.5 MG/DL (8.8-10.2); CARBON DIOXIDE LEVEL 32 MEQ/L (21-32); CHLORIDE LEVEL 105 MEQ/L (98-107); CREATININE FOR GFR 0.32 MG/DL (0.55-1.30); GLOMERULAR FILTRATION RATE > 60.0 (>45); GLUCOSE, FASTING 144 MG/DL (70-100); POTASSIUM SERUM 4.2 MEQ/L (3.5-5.1); SODIUM LEVEL 142 MEQ/L (136-145)
[2020-08-07 10:19] LABS: HEMOGLOBIN A1c 6.3 %
== END ==
LOC: SKLAB5 07:56
DX: G35 Multiple sclerosis (principal); E11.9 Type 2 diabetes mellitus without complications

== ENCOUNTER → 2020-09-01 | Outpatient (REF) | payer MEDICARE, MEDICAID ==
[2020-09-01 14:36] LABS: APPEARANCE, URINE TURBID (CLEAR); BACTERIA, URINE AUTO 3+ (NEGATIVE); BILIRUBIN, URINE AUTO NEGATIVE (NEGATIVE); BLOOD, URINE BLOOD 1+ (NEGATIVE); COLOR, URINE YELLOW (YELLOW); GLUCOSE, URINE (UA) AUTO NEGATIVE (NEGATIVE); KETONE, URINE AUTO TRACE mg/dL (NEGATIVE); LEUKOCYTE ESTERASE, URINE AUTO 2+ (NEGATIVE); NITRITE, URINE AUTO POSITIVE (NEGATIVE); PROTEIN, URINE AUTO 2+ mg/dL (NEGATIVE); RBC, URINE AUTO 79 /HPF (0-3); RENAL EPITHELIAL CELLS 2 /HPF; SPECIFIC GRAVITY URINE AUTO 1.015 (1.002-1.035); SQUAMOUS EPITHELIAL CELL UR AU 21 /HPF (0-6); WBC, URINE AUTO TNTC /HPF (0-3)
== END ==
LOC: SKLAB5 12:54
DX: R30.0 Dysuria (principal)

== ENCOUNTER 2020-09-10 13:14 | Outpatient (CLI) | payer MEDICARE, MEDICAID ==
[~2020-09-10] VITALS: Ht 165.1 cm; Wt 72.2 kg
[2020-09-10 13:05] VITALS: BP 146/70
[2020-09-10] MEDS ORDERED: IMMUNE GLOBULIN 10% 10 GM in IV 1 EA IV ONE (13:30)
[2020-09-10] MEDS ORDERED: IMMUNE GLOBULIN 10% 5 GM in IV 1 EA IV ONE (13:30)
[2020-09-10] MEDS ORDERED: IMMUNE GLOBULIN 10% 20 GM in IV 1 EA IV ONE (13:30)
[2020-09-10 14:30] VITALS: BP 131/70
[2020-09-10 15:00] VITALS: BP 160/88
[2020-09-10 15:30] VITALS: BP 144/86
[2020-09-10 17:30] VITALS: BP 164/83
== END 2020-09-10 17:30 | disposition home or self-care (01) ==
LOC: M INFU 13:14
PROVIDERS: ATTEND Family Medicine
DX: G35 Multiple sclerosis (principal); Z88.0 Allergy status to penicillin; Z88.2 Allergy status to sulfonamides; Z88.1 Allergy status to other antibiotic agents
CPT/HCPCS: 96365; 96366; J1459

== ENCOUNTER 2020-10-08 13:36 | Outpatient (CLI) | payer MEDICARE, MEDICAID ==
[~2020-10-08] VITALS: Ht 165.1 cm; Wt 72.0 kg
[~2020-10-08 13:36] MED LIST changes: +IMMUNE GLOBULIN 10% 10 GM in IV 1 EA IV ONE; +IMMUNE GLOBULIN 10% 20 GM in IV 1 EA IV ONE; +IMMUNE GLOBULIN 10% 5 GM in IV 1 EA IV ONE; +UNRESOLVED CLARIFICATION ENTRY XX SCH
[2020-10-08 13:45] VITALS: BP 127/68
[2020-10-08 14:30] VITALS: BP 142/67
[2020-10-08 15:00] VITALS: BP 139/65
[2020-10-08 15:30] VITALS: BP 133/65
[2020-10-08 16:33] VITALS: BP 129/60
[2020-10-08 16:58] VITALS: BP 138/70
== END 2020-10-08 17:00 | disposition home or self-care (01) ==
LOC: M INFU 13:36
PROVIDERS: ATTEND Family Medicine
DX: G35 Multiple sclerosis (principal); Z88.0 Allergy status to penicillin; Z88.1 Allergy status to other antibiotic agents; Z88.2 Allergy status to sulfonamides
CPT/HCPCS: 96365; 96366; J1459

== ENCOUNTER → 2020-10-17 | Outpatient (REF) | payer MEDICARE, MEDICAID ==
[~2020-10-17] MED LIST changes: -IMMUNE GLOBULIN 10% 10 GM in IV 1 EA IV ONE; -IMMUNE GLOBULIN 10% 20 GM in IV 1 EA IV ONE; -IMMUNE GLOBULIN 10% 5 GM in IV 1 EA IV ONE; -UNRESOLVED CLARIFICATION ENTRY XX SCH
--- NOTE | 2020-10-17 15:10 | REP ---
INDICATION: WHEEZING. COMPARISON: 10/27/2015 TECHNIQUE: AP view FINDINGS: Eventration right hemidiaphragm paired subsegmental atelectasis at right lung base. Left lung clear. Heart is slightly enlarged. No failure. No interval change compared to the previous study. IMPRESSION: Subsegmental atelectasis right lung base. <Electronically signed by Benjamin Forde > 10/17/20 [id number]
== END ==
LOC: SKLAB5 12:44
PROVIDERS: ATTEND Family Medicine
DX: J98.11 Atelectasis (principal)

== ENCOUNTER 2020-11-05 13:35 | Outpatient (CLI) | payer MEDICARE, MEDICAID ==
[~2020-11-05] VITALS: Ht 165.1 cm; Wt 72.2 kg
[~2020-11-05 13:35] MED LIST changes: -CEFD1CAP8 PO; +IMMUNE GLOBULIN 10% 10 GM in IV 1 EA IV ONE; +IMMUNE GLOBULIN 10% 20 GM in IV 1 EA IV ONE; +IMMUNE GLOBULIN 10% 5 GM in IV 1 EA IV ONE; +LOSA25TA13 PO; -LOSA25TA14 PO; +LOSA50TA28 PO; -LOSA50TA88 PO
[2020-11-05 14:09] VITALS: BP 146/69
[2020-11-05 14:30] VITALS: BP 154/77
[2020-11-05 15:00] VITALS: BP 156/78
[2020-11-05 15:30] VITALS: BP 158/80
[2020-11-05 16:00] VITALS: BP 168/79
[2020-11-05 17:20] VITALS: BP 154/78
== END 2020-11-05 17:30 | disposition home or self-care (01) ==
LOC: M INFU 13:35
PROVIDERS: ATTEND Nurse Practitioner
DX: G35 Multiple sclerosis (principal); Z88.0 Allergy status to penicillin; Z88.1 Allergy status to other antibiotic agents; Z88.2 Allergy status to sulfonamides
CPT/HCPCS: 96365; 96366; J1459

== ENCOUNTER → 2020-11-06 | Outpatient (REF) | payer MEDICARE, MEDICAID ==
[~2020-11-06] MED LIST changes: -IMMUNE GLOBULIN 10% 10 GM in IV 1 EA IV ONE; -IMMUNE GLOBULIN 10% 20 GM in IV 1 EA IV ONE; -IMMUNE GLOBULIN 10% 5 GM in IV 1 EA IV ONE
[2020-11-06 13:13] LABS: HEMOGLOBIN 12.1 g/dl (12.0-15.5); MEAN CORPUSCULAR HEMOGLOBIN 25.8 pg (27.0-33.0); MEAN CORPUSCULAR VOLUME 83.2 fl (80.0-96.0); PLATELET COUNT, AUTOMATED 199 10^3/uL (150-450); RED BLOOD COUNT 4.69 10^6/uL (4.00-5.40); WHITE BLOOD COUNT 4.9 10^3/uL (4.0-10.0)
[2020-11-06 13:51] LABS: BLOOD UREA NITROGEN 10 MG/DL (7-18); CALCIUM LEVEL 8.8 MG/DL (8.8-10.2); CARBON DIOXIDE LEVEL 35 MEQ/L (21-32); CHLORIDE LEVEL 103 MEQ/L (98-107); CHOLESTEROL LEVEL 157 MG/DL (<200); CHOLESTEROL RISK RATIO 4.485 (<5); CREATININE FOR GFR 0.39 MG/DL (0.55-1.30); GLOMERULAR FILTRATION RATE > 60.0 (>45); GLUCOSE, FASTING 167 MG/DL (70-100); HDL CHOLESTEROL 35 MG/DL (>40); LDL CHOLESTEROL 49 MG/DL (<100); NON-HDL-C 122 MG/DL; POTASSIUM SERUM 4.1 MEQ/L (3.5-5.1); SODIUM LEVEL 141 MEQ/L (136-145); THYROID STIMULATING HORMONE 0.668 uIU/ML (0.358-3.740); TRIGLYCERIDES LEVEL 364 MG/DL (<150)
== END ==
LOC: SKLAB5 07:55
PROVIDERS: ATTEND Internal Medicine
DX: G35 Multiple sclerosis (principal); D64.9 Anemia, unspecified; Z79.899 Other long term (current) drug therapy

== ENCOUNTER 2020-12-10 14:14 | Outpatient (CLI) | payer MEDICARE, MEDICAID ==
[~2020-12-10] VITALS: Ht 170.2 cm; Wt 71.2 kg
[~2020-12-10 14:14] MED LIST changes: +CEFD1CAP8 PO; +IMMUNE GLOBULIN 10% 10 GM in IV 1 EA IV ONE; +IMMUNE GLOBULIN 10% 20 GM in IV 1 EA IV ONE; +IMMUNE GLOBULIN 10% 5 GM in IV 1 EA IV ONE; -LOSA25TA13 PO; +LOSA25TA14 PO; -LOSA50TA28 PO; +LOSA50TA88 PO
[2020-12-10 14:30] VITALS: BP 134/66
[2020-12-10 15:30] VITALS: BP 128/75
[2020-12-10 16:41] VITALS: BP 143/65
[2020-12-10 17:55] VITALS: BP 141/66
== END 2020-12-10 17:55 | disposition home or self-care (01) ==
LOC: M INFU 14:14
PROVIDERS: ATTEND Nurse Practitioner
DX: G35 Multiple sclerosis (principal); Z88.0 Allergy status to penicillin; Z88.1 Allergy status to other antibiotic agents; Z88.2 Allergy status to sulfonamides; Z88.8 Allergy status to other drugs, medicaments and biological substances
CPT/HCPCS: 96365; 96366; J1459

== ENCOUNTER → 2020-12-23 | Outpatient (REF) | payer MEDICARE, MEDICAID ==
[~2020-12-23] MED LIST changes: -IMMUNE GLOBULIN 10% 10 GM in IV 1 EA IV ONE; -IMMUNE GLOBULIN 10% 20 GM in IV 1 EA IV ONE; -IMMUNE GLOBULIN 10% 5 GM in IV 1 EA IV ONE
== END ==
LOC: SKLAB5 11:08
PROVIDERS: ATTEND Internal Medicine
DX: Z20.822 Contact with and (suspected) exposure to COVID-19 (principal)

== ENCOUNTER → 2020-12-25 | Outpatient (REF) | payer MEDICARE, MEDICAID | LOC: SKLAB5 08:50 | PROVIDERS: ATTEND Internal Medicine | DX: Z20.822 Contact with and (suspected) exposure to COVID-19 (principal) ==

== ENCOUNTER → 2020-12-29 | Outpatient (REF) | payer MEDICARE, MEDICAID | LOC: SKLAB5 06:09 | PROVIDERS: ATTEND Internal Medicine | DX: Z20.822 Contact with and (suspected) exposure to COVID-19 (principal) ==

== ENCOUNTER → 2021-01-01 | Outpatient (REF) | payer MEDICARE, MEDICAID | LOC: SKLAB5 05:56 | PROVIDERS: ATTEND Internal Medicine | DX: Z20.822 Contact with and (suspected) exposure to COVID-19 (principal) ==

== ENCOUNTER → 2021-01-05 | Outpatient (REF) | payer MEDICARE, MEDICAID | LOC: SKLAB5 05:17 | PROVIDERS: ATTEND Internal Medicine | DX: Z20.822 Contact with and (suspected) exposure to COVID-19 (principal) ==

== ENCOUNTER → 2021-01-08 | Outpatient (REF) | payer MEDICARE, MEDICAID | LOC: SKLAB5 09:00 | PROVIDERS: ATTEND Internal Medicine | DX: Z20.822 Contact with and (suspected) exposure to COVID-19 (principal) ==

== ENCOUNTER → 2021-01-14 | Outpatient (REF) | payer MEDICARE, MEDICAID | LOC: SKLAB5 13:26 | PROVIDERS: ATTEND Internal Medicine | DX: Z20.822 Contact with and (suspected) exposure to COVID-19 (principal) ==

== ENCOUNTER → 2021-01-21 | Outpatient (REF) | payer MEDICARE, MEDICAID | LOC: SKLAB5 07:47 | PROVIDERS: ATTEND Internal Medicine | DX: Z20.822 Contact with and (suspected) exposure to COVID-19 (principal) ==

== ENCOUNTER → 2021-02-05 | Outpatient (REF) | payer MEDICARE, MEDICAID ==
[2021-02-05 11:05] LABS: HEMATOCRIT 39.6 % (36.0-47.0); HEMOGLOBIN 12.1 g/dl (12.0-15.5); MEAN CORPUSCULAR HEMOGLOBIN 25.9 pg (27.0-33.0); MEAN CORPUSCULAR HGB CONC 30.6 g/dl (32.0-36.5); MEAN CORPUSCULAR VOLUME 84.6 fl (80.0-96.0); PLATELET COUNT, AUTOMATED 212 10^3/uL (150-450); RED BLOOD COUNT 4.68 10^6/uL (4.00-5.40); WHITE BLOOD COUNT 7.6 10^3/uL (4.0-10.0)
[2021-02-05 11:29] LABS: BLOOD UREA NITROGEN 11 MG/DL (7-18); CALCIUM LEVEL 8.6 MG/DL (8.8-10.2); CARBON DIOXIDE LEVEL 34 MEQ/L (21-32); CHLORIDE LEVEL 104 MEQ/L (98-107); GLOMERULAR FILTRATION RATE > 60.0 (>45); GLUCOSE, FASTING 126 MG/DL (70-100); POTASSIUM SERUM 3.9 MEQ/L (3.5-5.1); SODIUM LEVEL 142 MEQ/L (136-145)
[2021-02-05 12:02] LABS: HEMOGLOBIN A1c 6.1 %
== END ==
LOC: SKLAB5 07:00
PROVIDERS: ATTEND Internal Medicine
DX: E11.9 Type 2 diabetes mellitus without complications (principal)

== ENCOUNTER 2021-02-10 13:42 | Outpatient (CLI) | payer MEDICARE, MEDICAID ==
[~2021-02-10] VITALS: Ht 170.2 cm; Wt 71.2 kg
[2021-02-10 12:30] VITALS: BP 162/78
[~2021-02-10 13:42] MED LIST changes: +IMMUNE GLOBULIN 10% 10 GM in IV 1 EA IV ONE; +IMMUNE GLOBULIN 10% 20 GM in IV 1 EA IV ONE; +IMMUNE GLOBULIN 10% 5 GM in IV 1 EA IV ONE
[2021-02-10 14:00] VITALS: BP 174/84
[2021-02-10 15:00] VITALS: BP 173/92
[2021-02-10 16:32] VITALS: BP 163/80
[2021-02-10 17:21] VITALS: BP 169/72
== END 2021-02-10 17:25 | disposition home or self-care (01) ==
LOC: M INFU 13:42
PROVIDERS: ATTEND Nurse Practitioner
DX: G35 Multiple sclerosis (principal); Z88.0 Allergy status to penicillin; Z88.2 Allergy status to sulfonamides; Z88.1 Allergy status to other antibiotic agents
CPT/HCPCS: 96365; 96366; J1459

== ENCOUNTER → 2021-02-10 | Outpatient (REF) | payer MEDICARE, MEDICAID | LOC: SKLAB5 10:50 | PROVIDERS: ATTEND Internal Medicine | DX: Z20.822 Contact with and (suspected) exposure to COVID-19 (principal) ==

== ENCOUNTER → 2021-02-18 | Outpatient (REF) | payer MEDICARE, MEDICAID ==
[~2021-02-18] MED LIST changes: -IMMUNE GLOBULIN 10% 10 GM in IV 1 EA IV ONE; -IMMUNE GLOBULIN 10% 20 GM in IV 1 EA IV ONE; -IMMUNE GLOBULIN 10% 5 GM in IV 1 EA IV ONE
== END ==
LOC: SKLAB5 07:00
PROVIDERS: ATTEND Internal Medicine
DX: Z20.822 Contact with and (suspected) exposure to COVID-19 (principal)

== ENCOUNTER → 2021-02-25 | Outpatient (REF) | payer MEDICARE, MEDICAID | LOC: SKLAB5 14:23 | PROVIDERS: ATTEND Internal Medicine | DX: Z20.822 Contact with and (suspected) exposure to COVID-19 (principal) ==

== ENCOUNTER → 2021-03-04 | Outpatient (REF) | payer MEDICARE, MEDICAID | LOC: SKLAB5 10:56 | PROVIDERS: ATTEND Internal Medicine | DX: Z20.822 Contact with and (suspected) exposure to COVID-19 (principal) ==

== ENCOUNTER 2021-03-10 13:18 | Outpatient (CLI) | payer MEDICARE, MEDICAID ==
[~2021-03-10] VITALS: Ht 170.2 cm; Wt 71.8 kg
[2021-03-10 13:10] VITALS: BP 173/84
[2021-03-10] MEDS ORDERED: IMMUNE GLOBULIN 10% 10 GM in IV 1 EA IV ONE (13:30)
[2021-03-10] MEDS ORDERED: IMMUNE GLOBULIN 10% 5 GM in IV 1 EA IV ONE (13:30)
[2021-03-10] MEDS ORDERED: IMMUNE GLOBULIN 10% 20 GM in IV 1 EA IV ONE (13:30)
[2021-03-10 14:10] VITALS: BP 174/89
[2021-03-10 14:40] VITALS: BP 171/84
[2021-03-10 15:30] VITALS: BP 168/78
[2021-03-10 16:26] VITALS: BP 171/81
[2021-03-10 17:06] VITALS: BP 158/69
== END 2021-03-10 17:10 | disposition home or self-care (01) ==
LOC: M INFU 13:18
PROVIDERS: ATTEND Nurse Practitioner
DX: G35 Multiple sclerosis (principal); Z88.0 Allergy status to penicillin; Z88.1 Allergy status to other antibiotic agents; Z88.2 Allergy status to sulfonamides
CPT/HCPCS: 96365; 96366; J1459

== ENCOUNTER → 2021-03-11 | Outpatient (REF) | payer MEDICARE, MEDICAID ==
[~2021-03-11] MED LIST changes: -CEFD1CAP8 PO; +LOSA25TA13 PO; -LOSA25TA14 PO; +LOSA50TA28 PO; -LOSA50TA88 PO
== END ==
LOC: SKLAB5 06:26
PROVIDERS: ATTEND Internal Medicine
DX: Z20.822 Contact with and (suspected) exposure to COVID-19 (principal)

== ENCOUNTER 2021-04-14 13:23 | Outpatient (CLI) | payer MEDICARE, MEDICAID ==
[~2021-04-14] VITALS: Ht 165.1 cm; Wt 72.0 kg
[2021-04-14 13:30] VITALS: BP 141/78
[2021-04-14] MEDS ORDERED: IMMUNE GLOBULIN 10% 10 GM in IV 1 EA IV ONE (13:45)
[2021-04-14] MEDS ORDERED: IMMUNE GLOBULIN 10% 20 GM in IV 1 EA IV ONE (13:45)
[2021-04-14] MEDS ORDERED: IMMUNE GLOBULIN 10% 5 GM in IV 1 EA IV ONE (13:45)
[2021-04-14 14:29] VITALS: BP 152/73
[2021-04-14 15:30] VITALS: BP 148/69
[2021-04-14 17:03] VITALS: BP 132/66
== END 2021-04-14 17:14 | disposition home or self-care (01) ==
LOC: M INFU 13:23
PROVIDERS: ATTEND Nurse Practitioner Adult Health
DX: G35 Multiple sclerosis (principal); Z88.0 Allergy status to penicillin; Z88.1 Allergy status to other antibiotic agents; Z88.2 Allergy status to sulfonamides
CPT/HCPCS: 96365; 96366; J1459

== ENCOUNTER → 2021-05-12 | Outpatient (CLI) | payer MEDICARE, MEDICAID ==
[~2021-05-12] MED LIST changes: +IMMUNE GLOBULIN 10% 10 GM in IV 1 EA IV ONE; +IMMUNE GLOBULIN 10% 20 GM in IV 1 EA IV ONE; +IMMUNE GLOBULIN 10% 5 GM in IV 1 EA IV ONE
[2021-05-12 13:00] VITALS: BP 158/75
[2021-05-12 13:15] VITALS: BP 148/71
[2021-05-12 13:45] VITALS: BP 150/75
[2021-05-12 14:15] VITALS: BP 154/76
== END ==
LOC: M INFU 12:19
PROVIDERS: ATTEND Nurse Practitioner Adult Health
DX: G35 Multiple sclerosis (principal); Z88.0 Allergy status to penicillin; Z88.1 Allergy status to other antibiotic agents; Z88.2 Allergy status to sulfonamides
CPT/HCPCS: 96365; 96366; J1459

== ENCOUNTER → 2021-05-21 | Outpatient (REF) | payer MEDICARE, MEDICAID ==
[~2021-05-21] MED LIST changes: -IMMUNE GLOBULIN 10% 10 GM in IV 1 EA IV ONE; -IMMUNE GLOBULIN 10% 20 GM in IV 1 EA IV ONE; -IMMUNE GLOBULIN 10% 5 GM in IV 1 EA IV ONE
[2021-05-21 11:50] LABS: HEMATOCRIT 37.8 % (36.0-47.0); HEMOGLOBIN 11.6 g/dl (12.0-15.5); MEAN CORPUSCULAR HEMOGLOBIN 25.1 pg (27.0-33.0); MEAN CORPUSCULAR HGB CONC 30.7 g/dl (32.0-36.5); MEAN CORPUSCULAR VOLUME 81.8 fl (80.0-96.0); PLATELET COUNT, AUTOMATED 195 10^3/uL (150-450); RED BLOOD COUNT 4.62 10^6/uL (4.00-5.40); WHITE BLOOD COUNT 6.1 10^3/uL (4.0-10.0)
[2021-05-21 12:30] LABS: BLOOD UREA NITROGEN 9 MG/DL (7-18); CALCIUM LEVEL 8.9 MG/DL (8.8-10.2); CARBON DIOXIDE LEVEL 33 MEQ/L (21-32); CHLORIDE LEVEL 104 MEQ/L (98-107); CREATININE FOR GFR 0.29 MG/DL (0.55-1.30); GLOMERULAR FILTRATION RATE > 60.0 (>45); GLUCOSE, FASTING 129 MG/DL (70-100); POTASSIUM SERUM 4.2 MEQ/L (3.5-5.1); SODIUM LEVEL 143 MEQ/L (136-145)
== END ==
LOC: SKLAB5 07:27
PROVIDERS: ATTEND Internal Medicine
DX: D64.9 Anemia, unspecified (principal)

== ENCOUNTER → 2021-05-28 | Outpatient (CLI) | payer MEDICARE, MEDICAID | LOC: M RAD 13:21 | PROVIDERS: ATTEND Nurse Practitioner Adult Health | DX: Z12.31 Encounter for screening mammogram for malignant neoplasm of breast (principal) ==

== ENCOUNTER → 2021-05-31 | Outpatient (CLI) | payer MEDICARE, MEDICAID | LOC: SKLAB5 22:26 | PROVIDERS: ATTEND Internal Medicine | DX: M25.561 Pain in right knee (principal); M85.9 Disorder of bone density and structure, unspecified ==

== ENCOUNTER 2021-06-09 13:25 | Outpatient (CLI) | payer MEDICARE, MEDICAID ==
[~2021-06-09] VITALS: Ht 165.1 cm; Wt 71.8 kg
[~2021-06-09 13:25] MED LIST changes: +IMMUNE GLOBULIN 10% 10 GM in IV 1 EA IV ONE; +IMMUNE GLOBULIN 10% 20 GM in IV 1 EA IV ONE; +IMMUNE GLOBULIN 10% 5 GM in IV 1 EA IV ONE
[2021-06-09 13:58] VITALS: BP 131/72
[2021-06-09 14:31] VITALS: BP 124/76
[2021-06-09 15:24] VITALS: BP 144/67
[2021-06-09 16:33] VITALS: BP 139/66
== END 2021-06-09 16:50 | disposition home or self-care (01) ==
LOC: M INFU 13:25
PROVIDERS: ATTEND Nurse Practitioner Adult Health
DX: G35 Multiple sclerosis (principal); Z88.0 Allergy status to penicillin; Z88.1 Allergy status to other antibiotic agents; Z88.2 Allergy status to sulfonamides
CPT/HCPCS: 96365; 96366; J1459

== ENCOUNTER 2021-07-07 12:04 | Outpatient (CLI) | payer MEDICARE, MEDICAID ==
[~2021-07-07] VITALS: Ht 165.1 cm; Wt 71.8 kg
[2021-07-07 12:25] VITALS: BP 128/96
[2021-07-07 13:15] VITALS: BP 156/82
[2021-07-07 13:42] VITALS: BP 123/77
[2021-07-07 14:15] VITALS: BP 140/75
[2021-07-07 16:00] VITALS: BP 138/73
== END 2021-07-07 16:00 | disposition home or self-care (01) ==
LOC: M INFU 12:04
PROVIDERS: ATTEND Nurse Practitioner Adult Health
DX: G35 Multiple sclerosis (principal)
CPT/HCPCS: 96365; 96366; J1459

== ENCOUNTER 2021-08-11 12:40 | Outpatient (CLI) | payer MEDICARE, MEDICAID ==
[~2021-08-11] VITALS: Ht 165.1 cm; Wt 72.0 kg
== END 2021-08-11 16:15 | disposition home or self-care (01) ==
LOC: M INFU 12:40
PROVIDERS: ATTEND Nurse Practitioner Adult Health
DX: G35 Multiple sclerosis (principal); Z88.0 Allergy status to penicillin; Z88.2 Allergy status to sulfonamides; Z88.1 Allergy status to other antibiotic agents
CPT/HCPCS: 96365; 96366; J1459

== ENCOUNTER → 2021-08-25 | Outpatient (REF) | payer MEDICARE, MEDICAID ==
[~2021-08-25] MED LIST changes: -IMMUNE GLOBULIN 10% 10 GM in IV 1 EA IV ONE; -IMMUNE GLOBULIN 10% 20 GM in IV 1 EA IV ONE; -IMMUNE GLOBULIN 10% 5 GM in IV 1 EA IV ONE
[2021-08-25 07:28] LABS: HEMATOCRIT 35.9 % (36.0-47.0); HEMOGLOBIN 11.1 g/dl (12.0-15.5); MEAN CORPUSCULAR HEMOGLOBIN 25.6 pg (27.0-33.0); MEAN CORPUSCULAR HGB CONC 30.9 g/dl (32.0-36.5); MEAN CORPUSCULAR VOLUME 82.7 fl (80.0-96.0); PLATELET COUNT, AUTOMATED 230 10^3/uL (150-450); RED BLOOD COUNT 4.34 10^6/uL (4.00-5.40)
[2021-08-25 07:55] LABS: BLOOD UREA NITROGEN 8 MG/DL (7-18); CALCIUM LEVEL 9.2 MG/DL (8.8-10.2); CARBON DIOXIDE LEVEL 31 MEQ/L (21-32); CHLORIDE LEVEL 106 MEQ/L (98-107); CREATININE FOR GFR 0.33 MG/DL (0.55-1.30); GLOMERULAR FILTRATION RATE > 60.0 (>45); GLUCOSE, FASTING 110 MG/DL (70-100); POTASSIUM SERUM 3.9 MEQ/L (3.5-5.1); SODIUM LEVEL 145 MEQ/L (136-145)
== END ==
LOC: SKLAB5 09:37
PROVIDERS: ATTEND Internal Medicine
DX: D64.9 Anemia, unspecified (principal); G35 Multiple sclerosis; E11.9 Type 2 diabetes mellitus without complications

== ENCOUNTER 2021-09-08 12:37 | Outpatient (CLI) | payer MEDICARE, MEDICAID ==
[~2021-09-08] VITALS: Ht 165.1 cm; Wt 72.0 kg
[~2021-09-08 12:37] MED LIST changes: +IMMUNE GLOBULIN 10% 10 GM in IV 1 EA IV ONE; +IMMUNE GLOBULIN 10% 20 GM in IV 1 EA IV ONE; +IMMUNE GLOBULIN 10% 5 GM in IV 1 EA IV ONE
[2021-09-08 12:56] VITALS: BP 148/73
[2021-09-08 13:25] VITALS: BP 158/75
[2021-09-08 14:00] VITALS: BP_SYST 148; BP_SYST 152; BP_DIAS 68; BP_DIAS 72
[2021-09-08 16:15] VITALS: BP 139/74
[2021-09-08 17:14] VITALS: BP 139/85
== END 2021-09-08 16:15 | disposition home or self-care (01) ==
LOC: M INFU 12:37
PROVIDERS: ATTEND Nurse Practitioner Adult Health
DX: G35 Multiple sclerosis (principal); Z88.0 Allergy status to penicillin; Z88.1 Allergy status to other antibiotic agents; Z88.2 Allergy status to sulfonamides
CPT/HCPCS: 96365; 96366; J1459

== ENCOUNTER → 2021-09-09 | Outpatient (REF) | payer MEDICARE, MEDICAID ==
[~2021-09-09] MED LIST changes: -IMMUNE GLOBULIN 10% 10 GM in IV 1 EA IV ONE; -IMMUNE GLOBULIN 10% 20 GM in IV 1 EA IV ONE; -IMMUNE GLOBULIN 10% 5 GM in IV 1 EA IV ONE
== END ==
LOC: SKLAB5 11:39
PROVIDERS: ATTEND Nurse Practitioner Adult Health
DX: M85.871 Other specified disorders of bone density and structure, right ankle and foot (principal); M25.571 Pain in right ankle and joints of right foot

== ENCOUNTER → 2021-09-14 | Outpatient (REF) | payer MEDICARE, MEDICAID ==
[~2021-09-14] MED LIST changes: -MAXA10TA14 PO; +RIZA10TA64 PO
== END ==
LOC: SKLAB5 13:51
PROVIDERS: ATTEND Nurse Practitioner Adult Health
DX: R30.0 Dysuria (principal); Z53.8 Procedure and treatment not carried out for other reasons

== ENCOUNTER → 2021-09-17 | Outpatient (REF) | payer MEDICARE, MEDICAID ==
[~2021-09-17] MED LIST changes: +MAXA10TA14 PO; -RIZA10TA64 PO
[2021-09-17 14:17] LABS: APPEARANCE, URINE CLOUDY (CLEAR); BACTERIA, URINE AUTO 3+ (NEGATIVE); BILIRUBIN, URINE AUTO NEGATIVE (NEGATIVE); BLOOD, URINE BLOOD NEGATIVE (NEGATIVE); COLOR, URINE YELLOW (YELLOW); GLUCOSE, URINE (UA) AUTO NEGATIVE (NEGATIVE); KETONE, URINE AUTO NEGATIVE (NEGATIVE); LEUKOCYTE ESTERASE, URINE AUTO 3+ (NEGATIVE); MUCUS, URINE SMALL (NEGATIVE); NITRITE, URINE AUTO POSITIVE (NEGATIVE); PROTEIN, URINE AUTO NEGATIVE (NEGATIVE); RBC, URINE AUTO 2 /HPF (0-3); SPECIFIC GRAVITY URINE AUTO 1.009 (1.002-1.035); SQUAMOUS EPITHELIAL CELL UR AU 2 /HPF (0-6); UROBILINOGEN, URINE AUTO 0.2 mg/dL (0.0-2.0); WBC, URINE AUTO TNTC /HPF (0-3)
== END ==
LOC: SKLAB5 13:52
PROVIDERS: ATTEND Nurse Practitioner Adult Health
DX: R30.0 Dysuria (principal)

== ENCOUNTER 2021-10-13 12:35 | Outpatient (CLI) | payer MEDICARE, MEDICAID ==
[~2021-10-13 12:35] MED LIST changes: +IMMUNE GLOBULIN 10% 10 GM in IV 1 EA IV ONE; +IMMUNE GLOBULIN 10% 20 GM in IV 1 EA IV ONE; +IMMUNE GLOBULIN 10% 5 GM in IV 1 EA IV ONE
[2021-10-13 12:40] VITALS: BP 164/68
[2021-10-13 13:30] VITALS: BP 174/79
[2021-10-13 14:30] VITALS: BP 159/71
[2021-10-13 15:30] VITALS: BP 163/68
[2021-10-13 16:10] VITALS: BP 161/72
== END 2021-10-13 16:10 | disposition home or self-care (01) ==
LOC: M INFU 12:35
PROVIDERS: ATTEND Nurse Practitioner Adult Health
DX: G35 Multiple sclerosis (principal); Z88.0 Allergy status to penicillin; Z88.2 Allergy status to sulfonamides; Z88.1 Allergy status to other antibiotic agents
CPT/HCPCS: 96365; 96366; J1459

== ENCOUNTER 2021-11-17 12:30 | Outpatient (CLI) | payer MEDICARE, MEDICAID ==
[~2021-11-17] VITALS: Ht 165.1 cm; Wt 72.0 kg
[~2021-11-17 12:30] MED LIST changes: -MAXA10TA14 PO; +RIZA10TA64 PO
[2021-11-17 13:00] VITALS: BP 155/74
[2021-11-17 14:00] VITALS: BP 151/68
[2021-11-17 15:53] VITALS: BP 145/82
== END 2021-11-17 16:00 | disposition home or self-care (01) ==
LOC: M INFU 12:30
PROVIDERS: ATTEND Nurse Practitioner Adult Health
DX: G35 Multiple sclerosis (principal); Z88.0 Allergy status to penicillin; Z88.2 Allergy status to sulfonamides; Z88.1 Allergy status to other antibiotic agents; Z88.8 Allergy status to other drugs, medicaments and biological substances
CPT/HCPCS: 96365; 96366; J1459

== ENCOUNTER → 2021-11-24 | Outpatient (REF) | payer MEDICARE, MEDICAID ==
[~2021-11-24] MED LIST changes: -IMMUNE GLOBULIN 10% 10 GM in IV 1 EA IV ONE; -IMMUNE GLOBULIN 10% 20 GM in IV 1 EA IV ONE; -IMMUNE GLOBULIN 10% 5 GM in IV 1 EA IV ONE
[2021-11-24 11:18] LABS: HEMATOCRIT 35.8 % (36.0-47.0); MEAN CORPUSCULAR HEMOGLOBIN 25.2 pg (27.0-33.0); MEAN CORPUSCULAR HGB CONC 30.7 g/dl (32.0-36.5); MEAN CORPUSCULAR VOLUME 82.1 fl (80.0-96.0); PLATELET COUNT, AUTOMATED 209 10^3/uL (150-450); RED BLOOD COUNT 4.36 10^6/uL (4.00-5.40); WHITE BLOOD COUNT 5.4 10^3/uL (4.0-10.0)
[2021-11-24 12:18] LABS: BLOOD UREA NITROGEN 10 MG/DL (7-18); CALCIUM LEVEL 8.8 MG/DL (8.8-10.2); CARBON DIOXIDE LEVEL 34 MEQ/L (21-32); CHLORIDE LEVEL 103 MEQ/L (98-107); CHOLESTEROL LEVEL 162 MG/DL (<200); CHOLESTEROL RISK RATIO 4.628 (<5); CREATININE FOR GFR 0.29 MG/DL (0.55-1.30); GLOMERULAR FILTRATION RATE > 60.0 (>45); GLUCOSE, FASTING 123 MG/DL (70-100); HDL CHOLESTEROL 35 MG/DL (>40); LDL CHOLESTEROL 57 MG/DL (<100); NON-HDL-C 127 MG/DL; POTASSIUM SERUM 3.9 MEQ/L (3.5-5.1); SODIUM LEVEL 140 MEQ/L (136-145); THYROID STIMULATING HORMONE 0.921 uIU/ML (0.358-3.740); TRIGLYCERIDES LEVEL 349 MG/DL (<150)
== END ==
LOC: SKLAB5 11:44
PROVIDERS: ATTEND Internal Medicine
DX: E03.9 Hypothyroidism, unspecified (principal); D64.9 Anemia, unspecified; G35 Multiple sclerosis; E78.00 Pure hypercholesterolemia, unspecified

== ENCOUNTER 2021-12-15 12:10 | Outpatient (CLI) | payer MEDICARE, MEDICAID ==
[~2021-12-15] VITALS: Ht 167.6 cm; Wt 72.0 kg
[2021-12-15 12:10] VITALS: BP 156/84
[~2021-12-15 12:10] MED LIST changes: +IMMUNE GLOBULIN 10% 10 GM in IV 1 EA IV ONE; +IMMUNE GLOBULIN 10% 20 GM in IV 1 EA IV ONE; +IMMUNE GLOBULIN 10% 5 GM in IV 1 EA IV ONE
[2021-12-15 13:30] VITALS: BP 146/77
[2021-12-15 14:30] VITALS: BP 163/73
[2021-12-15 16:00] VITALS: BP 172/76
== END 2021-12-15 16:05 | disposition home or self-care (01) ==
LOC: M INFU 12:10
PROVIDERS: ATTEND Nurse Practitioner Adult Health
DX: G35 Multiple sclerosis (principal); Z88.0 Allergy status to penicillin; Z88.2 Allergy status to sulfonamides; Z88.1 Allergy status to other antibiotic agents; Z88.8 Allergy status to other drugs, medicaments and biological substances
CPT/HCPCS: 96365; 96366; J1459

== ENCOUNTER → 2021-12-21 | Outpatient (REF) | payer MEDICARE, MEDICAID ==
[~2021-12-21] MED LIST changes: -IMMUNE GLOBULIN 10% 10 GM in IV 1 EA IV ONE; -IMMUNE GLOBULIN 10% 20 GM in IV 1 EA IV ONE; -IMMUNE GLOBULIN 10% 5 GM in IV 1 EA IV ONE
[2021-12-21 10:05] LABS: HEMATOCRIT 37.8 % (36.0-47.0); HEMOGLOBIN 11.6 g/dl (12.0-15.5); MEAN CORPUSCULAR HEMOGLOBIN 24.6 pg (27.0-33.0); MEAN CORPUSCULAR HGB CONC 30.7 g/dl (32.0-36.5); MEAN CORPUSCULAR VOLUME 80.3 fl (80.0-96.0); PLATELET COUNT, AUTOMATED 185 10^3/uL (150-450); RED BLOOD COUNT 4.71 10^6/uL (4.00-5.40); WHITE BLOOD COUNT 5.1 10^3/uL (4.0-10.0)
[2021-12-21 10:43] LABS: ALT/SGPT 13 U/L (12-78); BILIRUBIN,TOTAL 0.2 MG/DL (0.2-1.0); BLOOD UREA NITROGEN 11 MG/DL (7-18); CALCIUM LEVEL 8.8 MG/DL (8.8-10.2); CARBON DIOXIDE LEVEL 31 MEQ/L (21-32); CHLORIDE LEVEL 104 MEQ/L (98-107); CREATININE FOR GFR 0.35 MG/DL (0.55-1.30); GLOMERULAR FILTRATION RATE > 60.0 (>45); GLUCOSE, FASTING 120 MG/DL (70-100); POTASSIUM SERUM 3.7 MEQ/L (3.5-5.1); SODIUM LEVEL 140 MEQ/L (136-145); TOTAL PROTEIN 7.1 GM/DL (6.4-8.2)
== END ==
LOC: SKLAB5 09:47
PROVIDERS: ATTEND Nurse Practitioner Adult Health
DX: J06.9 Acute upper respiratory infection, unspecified (principal)

== ENCOUNTER → 2021-12-24 | Outpatient (REF) | payer MEDICARE, MEDICAID ==
[2021-12-24 13:00] LABS: HEMATOCRIT 39.5 % (36.0-47.0); HEMOGLOBIN 11.7 g/dl (12.0-15.5); MEAN CORPUSCULAR HEMOGLOBIN 24.3 pg (27.0-33.0); MEAN CORPUSCULAR HGB CONC 29.6 g/dl (32.0-36.5); MEAN CORPUSCULAR VOLUME 82.1 fl (80.0-96.0); PLATELET COUNT, AUTOMATED 253 10^3/uL (150-450); RED BLOOD COUNT 4.81 10^6/uL (4.00-5.40)
[2021-12-24 13:59] LABS: ALBUMIN 3.2 GM/DL (3.2-5.2); ALT/SGPT 11 U/L (12-78); BILIRUBIN,TOTAL 0.4 MG/DL (0.2-1.0); BLOOD UREA NITROGEN 12 MG/DL (7-18); CALCIUM LEVEL 8.9 MG/DL (8.8-10.2); CARBON DIOXIDE LEVEL 32 MEQ/L (21-32); CHLORIDE LEVEL 105 MEQ/L (98-107); CREATININE FOR GFR 0.38 MG/DL (0.55-1.30); GLOMERULAR FILTRATION RATE > 60.0 (>45); GLUCOSE, FASTING 78 MG/DL (70-100); POTASSIUM SERUM 3.8 MEQ/L (3.5-5.1); SODIUM LEVEL 142 MEQ/L (136-145); TOTAL PROTEIN 6.9 GM/DL (6.4-8.2)
== END ==
LOC: SKLAB5 13:20
PROVIDERS: ATTEND Nurse Practitioner Adult Health
DX: U07.1 COVID-19 (principal); Z79.899 Other long term (current) drug therapy

== ENCOUNTER → 2021-12-28 | Outpatient (REF) | payer MEDICARE, MEDICAID ==
[2021-12-28 08:29] LABS: HEMATOCRIT 37.6 % (36.0-47.0); HEMOGLOBIN 11.5 g/dl (12.0-15.5); MEAN CORPUSCULAR HEMOGLOBIN 24.7 pg (27.0-33.0); MEAN CORPUSCULAR HGB CONC 30.6 g/dl (32.0-36.5); MEAN CORPUSCULAR VOLUME 80.7 fl (80.0-96.0); PLATELET COUNT, AUTOMATED 264 10^3/uL (150-450); RED BLOOD COUNT 4.66 10^6/uL (4.00-5.40); WHITE BLOOD COUNT 8.8 10^3/uL (4.0-10.0)
[2021-12-28 09:36] LABS: ALT/SGPT 12 U/L (12-78); BILIRUBIN,TOTAL 0.2 MG/DL (0.2-1.0); BLOOD UREA NITROGEN 16 MG/DL (7-18); CALCIUM LEVEL 9.2 MG/DL (8.8-10.2); CARBON DIOXIDE LEVEL 32 MEQ/L (21-32); CHLORIDE LEVEL 105 MEQ/L (98-107); CREATININE FOR GFR 0.36 MG/DL (0.55-1.30); GLOMERULAR FILTRATION RATE > 60.0 (>45); GLUCOSE, FASTING 111 MG/DL (70-100); POTASSIUM SERUM 4.1 MEQ/L (3.5-5.1); SODIUM LEVEL 140 MEQ/L (136-145); TOTAL PROTEIN 6.7 GM/DL (6.4-8.2)
== END ==
LOC: SKLAB5 12:08
PROVIDERS: ATTEND Nurse Practitioner Adult Health
DX: U07.1 COVID-19 (principal); Z79.899 Other long term (current) drug therapy

== ENCOUNTER → 2021-12-31 | Outpatient (REF) | payer MEDICARE, MEDICAID ==
[2021-12-31 09:22] LABS: HEMATOCRIT 36.1 % (36.0-47.0); HEMOGLOBIN 10.9 g/dl (12.0-15.5); MEAN CORPUSCULAR HEMOGLOBIN 24.4 pg (27.0-33.0); MEAN CORPUSCULAR HGB CONC 30.2 g/dl (32.0-36.5); MEAN CORPUSCULAR VOLUME 80.8 fl (80.0-96.0); PLATELET COUNT, AUTOMATED 228 10^3/uL (150-450); RED BLOOD COUNT 4.47 10^6/uL (4.00-5.40); WHITE BLOOD COUNT 7.4 10^3/uL (4.0-10.0)
[2021-12-31 09:52] LABS: ALT/SGPT 13 U/L (12-78); BILIRUBIN,TOTAL 0.2 MG/DL (0.2-1.0); BLOOD UREA NITROGEN 10 MG/DL (7-18); CALCIUM LEVEL 8.8 MG/DL (8.8-10.2); CARBON DIOXIDE LEVEL 32 MEQ/L (21-32); CHLORIDE LEVEL 105 MEQ/L (98-107); CREATININE FOR GFR 0.28 MG/DL (0.55-1.30); GLOMERULAR FILTRATION RATE > 60.0 (>45); GLUCOSE, FASTING 108 MG/DL (70-100); POTASSIUM SERUM 4.1 MEQ/L (3.5-5.1); SODIUM LEVEL 140 MEQ/L (136-145); TOTAL PROTEIN 6.4 GM/DL (6.4-8.2)
== END ==
LOC: SKLAB5 08:57
PROVIDERS: ATTEND Nurse Practitioner Adult Health
DX: U07.1 COVID-19 (principal); Z79.899 Other long term (current) drug therapy

== ENCOUNTER 2022-01-19 12:10 | Outpatient (CLI) | payer MEDICARE, MEDICAID ==
[2022-01-19 12:10] VITALS: BP 135/62
[~2022-01-19 12:10] MED LIST changes: +IMMUNE GLOBULIN 10% 10 GM in IV 1 EA IV ONE; +IMMUNE GLOBULIN 10% 20 GM in IV 1 EA IV ONE; +IMMUNE GLOBULIN 10% 5 GM in IV 1 EA IV ONE
[2022-01-19 14:00] VITALS: BP 122/80
[2022-01-19 15:44] VITALS: BP 153/69
== END 2022-01-19 15:45 | disposition home or self-care (01) ==
LOC: M INFU 12:10
PROVIDERS: ATTEND Nurse Practitioner Adult Health
DX: G35 Multiple sclerosis (principal); Z88.0 Allergy status to penicillin; Z88.2 Allergy status to sulfonamides; Z88.1 Allergy status to other antibiotic agents; Z88.8 Allergy status to other drugs, medicaments and biological substances
CPT/HCPCS: 96365; 96366; J1459

== ENCOUNTER → 2022-02-11 | Outpatient (REF) | payer MEDICARE, MEDICAID ==
[~2022-02-11] MED LIST changes: -IMMUNE GLOBULIN 10% 10 GM in IV 1 EA IV ONE; -IMMUNE GLOBULIN 10% 20 GM in IV 1 EA IV ONE; -IMMUNE GLOBULIN 10% 5 GM in IV 1 EA IV ONE
== END ==
LOC: SKLAB5 07:55
PROVIDERS: ATTEND Internal Medicine
DX: R06.02 Shortness of breath (principal); R09.89 Other specified symptoms and signs involving the circulatory and respiratory systems

== ENCOUNTER 2022-02-16 12:30 | Outpatient (CLI) | payer MEDICARE, MEDICAID ==
[2022-02-16 12:30] VITALS: BP 152/72
[~2022-02-16 12:30] MED LIST changes: +IMMUNE GLOBULIN 10% 10 GM in IV 1 EA IV ONE; +IMMUNE GLOBULIN 10% 20 GM in IV 1 EA IV ONE; +IMMUNE GLOBULIN 10% 5 GM in IV 1 EA IV ONE
[2022-02-16 16:10] VITALS: BP 141/68
== END 2022-02-16 16:10 | disposition home or self-care (01) ==
LOC: M INFU 12:30
PROVIDERS: ATTEND Nurse Practitioner Adult Health
DX: G35 Multiple sclerosis (principal); Z88.0 Allergy status to penicillin; Z88.2 Allergy status to sulfonamides; Z88.1 Allergy status to other antibiotic agents; Z88.8 Allergy status to other drugs, medicaments and biological substances
CPT/HCPCS: 96365; 96366; J1459

== ENCOUNTER → 2022-02-19 | Outpatient (REF) | payer MEDICARE, MEDICAID ==
[~2022-02-19] MED LIST changes: -IMMUNE GLOBULIN 10% 10 GM in IV 1 EA IV ONE; -IMMUNE GLOBULIN 10% 20 GM in IV 1 EA IV ONE; -IMMUNE GLOBULIN 10% 5 GM in IV 1 EA IV ONE
[2022-02-19 08:02] LABS: HEMATOCRIT 34.1 % (36.0-47.0); HEMOGLOBIN 10.2 g/dl (12.0-15.5); MEAN CORPUSCULAR HEMOGLOBIN 24.1 pg (27.0-33.0); MEAN CORPUSCULAR HGB CONC 29.9 g/dl (32.0-36.5); MEAN CORPUSCULAR VOLUME 80.6 fl (80.0-96.0); PLATELET COUNT, AUTOMATED 218 10^3/uL (150-450); RED BLOOD COUNT 4.23 10^6/uL (4.00-5.40); WHITE BLOOD COUNT 6.3 10^3/uL (4.0-10.0)
[2022-02-19 08:40] LABS: HEMOGLOBIN A1c 5.4 % (4.0-6.0)
[2022-02-19 08:41] LABS: BLOOD UREA NITROGEN 11 MG/DL (9-23); CALCIUM LEVEL 8.2 MG/DL (8.3-10.6); CARBON DIOXIDE LEVEL 34 MMOL/L (20-31); CHLORIDE LEVEL 103 MMOL/L (98-107); CREATININE FOR GFR 0.26 MG/DL (0.55-1.30); GLOMERULAR FILTRATION RATE > 60.0 (>45); GLUCOSE, FASTING 111 MG/DL (74-106); SODIUM LEVEL 142 MMOL/L (136-145)
== END ==
LOC: SKLAB5 07:00
PROVIDERS: ATTEND Nurse Practitioner Adult Health
DX: D64.9 Anemia, unspecified (principal); G35 Multiple sclerosis; E11.9 Type 2 diabetes mellitus without complications

== ENCOUNTER 2022-03-23 12:40 | Outpatient (CLI) | payer MEDICARE, MEDICAID ==
[~2022-03-23 12:40] MED LIST changes: +IMMUNE GLOBULIN 10% 10 GM in IV 1 EA IV ONE; +IMMUNE GLOBULIN 10% 20 GM in IV 1 EA IV ONE; +IMMUNE GLOBULIN 10% 5 GM in IV 1 EA IV ONE
[2022-03-23 13:04] VITALS: BP 136/81
[2022-03-23 15:58] VITALS: BP 130/84
== END 2022-03-23 16:30 | disposition home or self-care (01) ==
LOC: M INFU 12:40
PROVIDERS: ATTEND Nurse Practitioner Adult Health
DX: G35 Multiple sclerosis (principal); Z88.0 Allergy status to penicillin; Z88.2 Allergy status to sulfonamides; Z88.1 Allergy status to other antibiotic agents; Z88.8 Allergy status to other drugs, medicaments and biological substances
CPT/HCPCS: 96365; 96366; J1459

== ENCOUNTER → 2022-04-07 | Outpatient (REF) | payer MEDICARE, MEDICAID ==
[~2022-04-07] MED LIST changes: -IMMUNE GLOBULIN 10% 10 GM in IV 1 EA IV ONE; -IMMUNE GLOBULIN 10% 20 GM in IV 1 EA IV ONE; -IMMUNE GLOBULIN 10% 5 GM in IV 1 EA IV ONE
[2022-04-07 14:55] LABS: APPEARANCE, URINE MANUAL CLOUDY (CLEAR); COLOR, URINE MANUAL YELLOW (YELLOW); GLUCOSE, URINE (UA) MANUAL NEGATIVE (NEGATIVE); KETONE, URINE MANUAL 1+ mg/dL (NEGATIVE); PROTEIN, URINE MANUAL 1+ mg/dL (NEGATIVE)
[2022-04-07 14:56] LABS: BILIRUBIN, URINE MANUAL NEGATIVE (NEGATIVE); BLOOD URINE MANUAL POSITIVE (NEGATIVE); LEUKOCYTE ESTERASE, URINE MAN POSITIVE (NEGATIVE); NITRITE, URINE MANUAL NEGATIVE (NEGATIVE); UROBILINOGEN, URINE MANUAL 1 MG mg/dl (NORMAL)
[2022-04-07 15:20] LABS: BACTERIA, URINE LARGE AMOUNT; HYALINE CAST, URINE NONE SEEN /lpf (0-1); SQUAMOUS EPITHELIAL CELL URINE SMALL AMOUNT /hpf (SMALL AMT); WBC, URINE 15-20 /hpf (0-3)
== END ==
LOC: SKLAB5 14:29
PROVIDERS: ATTEND Nurse Practitioner Adult Health
DX: R50.9 Fever, unspecified (principal)

== ENCOUNTER → 2022-04-07 | Outpatient (REF) | payer MEDICARE, MEDICAID ==
[2022-04-07 13:43] LABS: HEMATOCRIT 39.2 % (36.0-47.0); HEMOGLOBIN 11.9 g/dl (12.0-15.5); MEAN CORPUSCULAR HEMOGLOBIN 24.3 pg (27.0-33.0); MEAN CORPUSCULAR HGB CONC 30.4 g/dl (32.0-36.5); MEAN CORPUSCULAR VOLUME 80.2 fl (80.0-96.0); PLATELET COUNT, AUTOMATED 232 10^3/uL (150-450); RED BLOOD COUNT 4.89 10^6/uL (4.00-5.40); WHITE BLOOD COUNT 13.2 10^3/uL (4.0-10.0)
[2022-04-07 14:10] LABS: BLOOD UREA NITROGEN 11 MG/DL (9-23); CALCIUM LEVEL 8.5 MG/DL (8.3-10.6); CARBON DIOXIDE LEVEL 32 MMOL/L (20-31); CHLORIDE LEVEL 102 MMOL/L (98-107); CREATININE FOR GFR 0.23 MG/DL (0.55-1.30); GLOMERULAR FILTRATION RATE > 60.0 (>45); GLUCOSE, FASTING 278 MG/DL (74-106); POTASSIUM SERUM 4.2 MMOL/L (3.5-5.1); SODIUM LEVEL 141 MMOL/L (136-145)
== END ==
LOC: SKLAB5 12:17
PROVIDERS: ATTEND Nurse Practitioner Adult Health
DX: J98.4 Other disorders of lung (principal); R11.2 Nausea with vomiting, unspecified

== ENCOUNTER → 2022-04-07 | Outpatient (REF) | payer MEDICARE, MEDICAID | LOC: SKLAB5 13:07 | PROVIDERS: ATTEND Nurse Practitioner Adult Health | DX: R09.02 Hypoxemia (principal) ==

== ENCOUNTER 2022-04-20 12:30 | Outpatient (CLI) | payer MEDICARE, MEDICAID ==
[2022-04-20 12:30] VITALS: BP 136/68
[~2022-04-20 12:30] MED LIST changes: +IMMUNE GLOBULIN 10% 10 GM in IV 1 EA IV ONE; +IMMUNE GLOBULIN 10% 20 GM in IV 1 EA IV ONE; +IMMUNE GLOBULIN 10% 5 GM in IV 1 EA IV ONE
[2022-04-20 14:00] VITALS: BP 126/60
[2022-04-20 16:30] VITALS: BP 125/57
== END 2022-04-20 16:30 | disposition home or self-care (01) ==
LOC: M INFU 12:30
PROVIDERS: ATTEND Nurse Practitioner Adult Health
DX: G35 Multiple sclerosis (principal); Z88.0 Allergy status to penicillin; Z88.2 Allergy status to sulfonamides; Z88.1 Allergy status to other antibiotic agents; Z88.8 Allergy status to other drugs, medicaments and biological substances
CPT/HCPCS: 96365; 96366; J1459

== ENCOUNTER 2022-05-18 10:45 | Outpatient (CLI) | payer MEDICARE, MEDICAID ==
[2022-05-18 10:45] VITALS: BP 151/69
[2022-05-18 14:40] VITALS: BP 132/60
== END 2022-05-18 14:40 | disposition home or self-care (01) ==
LOC: M INFU 10:45
PROVIDERS: ATTEND Nurse Practitioner Adult Health
DX: G35 Multiple sclerosis (principal); Z88.0 Allergy status to penicillin; Z88.2 Allergy status to sulfonamides; Z88.1 Allergy status to other antibiotic agents; Z88.8 Allergy status to other drugs, medicaments and biological substances
CPT/HCPCS: 96365; 96366; J1459

== ENCOUNTER → 2022-05-21 | Outpatient (REF) | payer MEDICARE, MEDICAID ==
[~2022-05-21] MED LIST changes: -IMMUNE GLOBULIN 10% 10 GM in IV 1 EA IV ONE; -IMMUNE GLOBULIN 10% 20 GM in IV 1 EA IV ONE; -IMMUNE GLOBULIN 10% 5 GM in IV 1 EA IV ONE
[2022-05-21 08:45] LABS: HEMATOCRIT 34.3 % (36.0-47.0); HEMOGLOBIN 10.8 g/dl (12.0-15.5); MEAN CORPUSCULAR HEMOGLOBIN 25.5 pg (27.0-33.0); MEAN CORPUSCULAR HGB CONC 31.5 g/dl (32.0-36.5); MEAN CORPUSCULAR VOLUME 80.9 fl (80.0-96.0); PLATELET COUNT, AUTOMATED 191 10^3/uL (150-450); RED BLOOD COUNT 4.24 10^6/uL (4.00-5.40); WHITE BLOOD COUNT 5.2 10^3/uL (4.0-10.0)
[2022-05-21 09:18] LABS: HEMOGLOBIN A1c 8.2 % (4.0-6.0)
[2022-05-21 09:26] LABS: BLOOD UREA NITROGEN 10 MG/DL (9-23); CALCIUM LEVEL 8.5 MG/DL (8.3-10.6); CARBON DIOXIDE LEVEL 34 MMOL/L (20-31); CHLORIDE LEVEL 103 MMOL/L (98-107); CREATININE FOR GFR 0.22 MG/DL (0.55-1.30); GLOMERULAR FILTRATION RATE > 60.0 (>45); GLUCOSE, FASTING 147 MG/DL (74-106); SODIUM LEVEL 141 MMOL/L (136-145)
== END ==
LOC: SKLAB5 09:34
PROVIDERS: ATTEND Nurse Practitioner Adult Health
DX: D64.9 Anemia, unspecified (principal); G35 Multiple sclerosis; E11.9 Type 2 diabetes mellitus without complications

== ENCOUNTER → 2022-06-07 | Outpatient (REF) | payer MEDICARE, MEDICAID ==
[2022-06-07 08:22] LABS: BASO % 0.6 % (0.0-1.0); EOS # 0.4 10^3/uL (0.0-0.5); EOS % 6.5 % (0.0-3.0); HEMATOCRIT 37.2 % (36.0-47.0); HEMOGLOBIN 11.4 g/dl (12.0-15.5); LYMPH # 2.9 10^3/uL (1.5-5.0); LYMPH % 43.6 % (24.0-44.0); MEAN CORPUSCULAR HEMOGLOBIN 25.1 pg (27.0-33.0); MEAN CORPUSCULAR HGB CONC 30.6 g/dl (32.0-36.5); MEAN CORPUSCULAR VOLUME 81.8 fl (80.0-96.0); MONO # 0.6 10^3/uL (0.0-0.8); MONO % 8.2 % (2.0-8.0); NEUTROPHILS # 2.7 10^3/uL (1.5-8.5); NEUTROPHILS % 40.5 % (36.0-66.0); PLATELET COUNT, AUTOMATED 211 10^3/uL (150-450); RED BLOOD COUNT 4.55 10^6/uL (4.00-5.40); WHITE BLOOD COUNT 6.7 10^3/uL (4.0-10.0)
[2022-06-07 08:52] LABS: ALBUMIN 3.1 G/DL (3.2-5.2); ALKALINE PHOSPHATASE 82 U/L (46-116); ALT/SGPT 13 U/L (7.0-40); AST/SGOT 14 U/L (<34); BILIRUBIN,TOTAL 0.2 MG/DL (0.3-1.2); BLOOD UREA NITROGEN 10 MG/DL (9-23); CALCIUM LEVEL 8.7 MG/DL (8.3-10.6); CARBON DIOXIDE LEVEL 34 MMOL/L (20-31); CHLORIDE LEVEL 103 MMOL/L (98-107); CREATININE FOR GFR 0.29 MG/DL (0.55-1.30); GLOMERULAR FILTRATION RATE > 60.0 (>45); GLUCOSE, FASTING 110 MG/DL (74-106); POTASSIUM SERUM 4.1 MMOL/L (3.5-5.1); SODIUM LEVEL 141 MMOL/L (136-145); TOTAL PROTEIN 6.1 G/DL (5.7-8.2)
== END ==
LOC: SKLAB5 07:49
PROVIDERS: ATTEND Internal Medicine
DX: L03.90 Cellulitis, unspecified (principal)

== ENCOUNTER → 2022-06-14 | Outpatient (REF) | payer MEDICARE, MEDICAID ==
[2022-06-15 00:30] LABS: BLOOD UREA NITROGEN 12 MG/DL (9-23); CALCIUM LEVEL 8.8 MG/DL (8.3-10.6); CARBON DIOXIDE LEVEL 34 MMOL/L (20-31); CHLORIDE LEVEL 103 MMOL/L (98-107); CREATININE FOR GFR 0.28 MG/DL (0.55-1.30); GLOMERULAR FILTRATION RATE > 60.0 (>45); GLUCOSE, FASTING 122 MG/DL (74-106); POTASSIUM SERUM 4.1 MMOL/L (3.5-5.1); SODIUM LEVEL 141 MMOL/L (136-145)
[2022-06-15 00:41] LABS: HEMATOCRIT 38.6 % (36.0-47.0); HEMOGLOBIN 12.1 g/dl (12.0-15.5); MEAN CORPUSCULAR HEMOGLOBIN 25.3 pg (27.0-33.0); MEAN CORPUSCULAR HGB CONC 31.3 g/dl (32.0-36.5); MEAN CORPUSCULAR VOLUME 80.8 fl (80.0-96.0); PLATELET COUNT, AUTOMATED 247 10^3/uL (150-450); RED BLOOD COUNT 4.78 10^6/uL (4.00-5.40)
== END ==
LOC: SKLAB5 22:53
PROVIDERS: ATTEND Internal Medicine
DX: R50.9 Fever, unspecified (principal)

== ENCOUNTER → 2022-06-15 | Outpatient (REF) | payer MEDICARE, MEDICAID ==
[2022-06-15 03:20] LABS: APPEARANCE, URINE CLOUDY (CLEAR); BACTERIA, URINE AUTO 1+ (NEGATIVE); BILIRUBIN, URINE AUTO NEGATIVE (NEGATIVE); BLOOD, URINE BLOOD NEGATIVE (NEGATIVE); COLOR, URINE YELLOW (YELLOW); GLUCOSE, URINE (UA) AUTO NEGATIVE (NEGATIVE); KETONE, URINE AUTO NEGATIVE (NEGATIVE); LEUKOCYTE ESTERASE, URINE AUTO 3+ (NEGATIVE); MUCUS, URINE SMALL (NEGATIVE); NITRITE, URINE AUTO POSITIVE (NEGATIVE); PROTEIN, URINE AUTO NEGATIVE (NEGATIVE); RBC, URINE AUTO 8 /HPF (0-3); SPECIFIC GRAVITY URINE AUTO 1.012 (1.002-1.035); SQUAMOUS EPITHELIAL CELL UR AU 2 /HPF (0-6); UROBILINOGEN, URINE AUTO 0.2 mg/dL (0.0-2.0); WBC, URINE AUTO TNTC /HPF (0-3)
== END ==
LOC: SKLAB5 11:51
PROVIDERS: ATTEND Internal Medicine
DX: R10.9 Unspecified abdominal pain (principal); R50.9 Fever, unspecified

== ENCOUNTER → 2022-06-17 | Outpatient (REF) | payer MEDICARE, MEDICAID ==
[2022-06-17 08:22] LABS: HEMOGLOBIN A1c 7.3 % (4.0-6.0)
== END ==
LOC: SKLAB5 08:33
PROVIDERS: ATTEND Nurse Practitioner Adult Health
DX: E11.9 Type 2 diabetes mellitus without complications (principal)

== ENCOUNTER 2022-06-22 10:30 | Outpatient (CLI) | payer MEDICARE, MEDICAID ==
[~2022-06-22] VITALS: Ht 167.6 cm; Wt 77.0 kg
[2022-06-22 10:30] VITALS: BP 167/71
[~2022-06-22 10:30] MED LIST changes: +IMMUNE GLOBULIN 10% 10 GM in IV 1 EA IV ONE; +IMMUNE GLOBULIN 10% 20 GM in IV 1 EA IV ONE; +IMMUNE GLOBULIN 10% 5 GM in IV 1 EA IV ONE
[2022-06-22 11:30] VITALS: BP 153/70
[2022-06-22 12:00] VITALS: BP 138/78
[2022-06-22 12:30] VITALS: BP 140/87
[2022-06-22 13:45] VITALS: BP 166/76
== END 2022-06-22 14:30 | disposition home or self-care (01) ==
LOC: M INFU 10:30
PROVIDERS: ATTEND Nurse Practitioner Adult Health
DX: G35 Multiple sclerosis (principal); Z88.0 Allergy status to penicillin; Z88.2 Allergy status to sulfonamides; Z88.1 Allergy status to other antibiotic agents
CPT/HCPCS: 96365; 96366; J1459

== ENCOUNTER 2022-07-20 11:00 | Outpatient (CLI) | payer MEDICARE, MEDICAID ==
[~2022-07-20] VITALS: Ht 167.6 cm; Wt 77.0 kg
[2022-07-20 14:21] VITALS: BP 134/60
== END 2022-07-20 14:45 | disposition home or self-care (01) ==
LOC: M INFU 11:00
PROVIDERS: ATTEND Nurse Practitioner Adult Health
DX: G35 Multiple sclerosis (principal); Z88.0 Allergy status to penicillin; Z88.2 Allergy status to sulfonamides
CPT/HCPCS: 96365; 96366; J1459

== ENCOUNTER → 2022-07-26 | Outpatient (CLI) | payer MEDICARE, MEDICAID ==
[~2022-07-26] MED LIST changes: -IMMUNE GLOBULIN 10% 10 GM in IV 1 EA IV ONE; -IMMUNE GLOBULIN 10% 20 GM in IV 1 EA IV ONE; -IMMUNE GLOBULIN 10% 5 GM in IV 1 EA IV ONE
== END ==
LOC: M WHC 12:40
PROVIDERS: ATTEND Nurse Practitioner Adult Health
DX: N64.4 Mastodynia (principal)

== ENCOUNTER → 2022-08-17 | Outpatient (CLI) | payer MEDICARE, MEDICAID ==
[~2022-08-17] VITALS: Ht 167.6 cm; Wt 77.0 kg
[~2022-08-17] MED LIST changes: +IMMUNE GLOBULIN 10% 10 GM in IV 1 EA IV ONE; +IMMUNE GLOBULIN 10% 20 GM in IV 1 EA IV ONE; +IMMUNE GLOBULIN 10% 5 GM in IV 1 EA IV ONE
[2022-08-17 11:02] VITALS: BP 138/66; O2SAT 95
[2022-08-17 11:30] VITALS: BP 132/63; O2SAT 97
[2022-08-17 12:00] VITALS: BP 124/56; O2SAT 98
[2022-08-17 13:10] VITALS: BP 122/58; O2SAT 97
[2022-08-17 14:10] VITALS: BP 129/66; O2SAT 98
== END ==
LOC: M INFU 10:48
PROVIDERS: ATTEND Nurse Practitioner Adult Health
DX: G35 Multiple sclerosis (principal); Z88.0 Allergy status to penicillin; Z88.2 Allergy status to sulfonamides; Z88.1 Allergy status to other antibiotic agents; Z88.8 Allergy status to other drugs, medicaments and biological substances
CPT/HCPCS: 96365; 96366; J1459

== ENCOUNTER → 2022-08-20 | Outpatient (REF) | payer MEDICARE, MEDICAID ==
[~2022-08-20] MED LIST changes: -IMMUNE GLOBULIN 10% 10 GM in IV 1 EA IV ONE; -IMMUNE GLOBULIN 10% 20 GM in IV 1 EA IV ONE; -IMMUNE GLOBULIN 10% 5 GM in IV 1 EA IV ONE
[2022-08-20 08:26] LABS: HEMATOCRIT 33.9 % (36.0-47.0); HEMOGLOBIN 10.2 g/dl (12.0-15.5); MEAN CORPUSCULAR HEMOGLOBIN 24.6 pg (27.0-33.0); MEAN CORPUSCULAR HGB CONC 30.1 g/dl (32.0-36.5); MEAN CORPUSCULAR VOLUME 81.7 fl (80.0-96.0); PLATELET COUNT, AUTOMATED 191 10^3/uL (150-450); RED BLOOD COUNT 4.15 10^6/uL (4.00-5.40); WHITE BLOOD COUNT 5.7 10^3/uL (4.0-10.0)
[2022-08-20 08:58] LABS: BLOOD UREA NITROGEN 9 MG/DL (9-23); CALCIUM LEVEL 9.3 MG/DL (8.3-10.6); CARBON DIOXIDE LEVEL 33 MMOL/L (20-31); CHLORIDE LEVEL 103 MMOL/L (98-107); CREATININE FOR GFR 0.23 MG/DL (0.55-1.30); GLOMERULAR FILTRATION RATE > 60.0 (>45); GLUCOSE, FASTING 81 MG/DL (74-106); SODIUM LEVEL 142 MMOL/L (136-145)
== END ==
LOC: SKLAB5 09:41
PROVIDERS: ATTEND Nurse Practitioner Adult Health
DX: G35 Multiple sclerosis (principal); D64.9 Anemia, unspecified

== ENCOUNTER → 2022-09-23 | Outpatient (REF) | payer MEDICARE, MEDICAID ==
[2022-09-24 00:32] LABS: HEMATOCRIT 40.5 % (36.0-47.0); HEMOGLOBIN 12.4 g/dl (12.0-15.5); MEAN CORPUSCULAR HEMOGLOBIN 25.2 pg (27.0-33.0); MEAN CORPUSCULAR HGB CONC 30.6 g/dl (32.0-36.5); MEAN CORPUSCULAR VOLUME 82.2 fl (80.0-96.0); PLATELET COUNT, AUTOMATED 282 10^3/uL (150-450); RED BLOOD COUNT 4.93 10^6/uL (4.00-5.40); WHITE BLOOD COUNT 10.8 10^3/uL (4.0-10.0)
[2022-09-24 00:46] LABS: BLOOD UREA NITROGEN 11 MG/DL (9-23); CALCIUM LEVEL 8.8 MG/DL (8.3-10.6); CARBON DIOXIDE LEVEL 35 MMOL/L (20-31); CHLORIDE LEVEL 100 MMOL/L (98-107); CREATININE FOR GFR 0.29 MG/DL (0.55-1.30); GLOMERULAR FILTRATION RATE > 60.0 (>45); GLUCOSE, FASTING 148 MG/DL (74-106); POTASSIUM SERUM 4.3 MMOL/L (3.5-5.1); SODIUM LEVEL 141 MMOL/L (136-145)
[2022-09-24 00:48] LABS: APPEARANCE, URINE CLOUDY (CLEAR); BACTERIA, URINE AUTO 2+ (NEGATIVE); BILIRUBIN, URINE AUTO NEGATIVE (NEGATIVE); BLOOD, URINE BLOOD 2+ (NEGATIVE); COLOR, URINE YELLOW (YELLOW); GLUCOSE, URINE (UA) AUTO NEGATIVE (NEGATIVE); KETONE, URINE AUTO NEGATIVE (NEGATIVE); LEUKOCYTE ESTERASE, URINE AUTO 3+ (NEGATIVE); MUCUS, URINE SMALL (NEGATIVE); NITRITE, URINE AUTO POSITIVE (NEGATIVE); PROTEIN, URINE AUTO NEGATIVE (NEGATIVE); RBC, URINE AUTO 64 /HPF (0-3); SPECIFIC GRAVITY URINE AUTO 1.013 (1.002-1.035); SQUAMOUS EPITHELIAL CELL UR AU 7 /HPF (0-6); UROBILINOGEN, URINE AUTO 0.2 mg/dL (0.0-2.0); WBC, URINE AUTO TNTC /HPF (0-3)
== END ==
LOC: SKLAB5 23:58 → EEVIPCON 23:58
PROVIDERS: ATTEND Internal Medicine
DX: R41.82 Altered mental status, unspecified (principal)

== ENCOUNTER 2022-09-28 11:15 | Outpatient (CLI) | payer MEDICARE, MEDICAID ==
[~2022-09-28 11:15] MED LIST changes: +CURRENT HEIGHT AND WEIGHT NEEDED ON PATIENT XX SCH; +IMMUNE GLOBULIN 10% 10 GM in IV 1 EA IV ONE; +IMMUNE GLOBULIN 10% 20 GM in IV 1 EA IV ONE; +IMMUNE GLOBULIN 10% 5 GM in IV 1 EA IV ONE
[2022-09-28 11:30] VITALS: BP 151/72; O2SAT 97
[2022-09-28 12:30] VITALS: BP 148/65; O2SAT 97
[2022-09-28 13:30] VITALS: BP 141/67; O2SAT 100
[2022-09-28 14:30] VITALS: BP 134/72; O2SAT 99
[2022-09-28 15:00] VITALS: BP 137/77; O2SAT 98
== END 2022-09-28 15:00 ==
LOC: M INFU 11:15
PROVIDERS: ATTEND Nurse Practitioner Adult Health
DX: G35 Multiple sclerosis (principal); Z88.0 Allergy status to penicillin; Z88.2 Allergy status to sulfonamides; Z88.1 Allergy status to other antibiotic agents; Z88.8 Allergy status to other drugs, medicaments and biological substances
CPT/HCPCS: 96365; 96366; J1459

== ENCOUNTER 2022-10-26 11:15 | Outpatient (CLI) | payer MEDICARE, MEDICAID ==
[~2022-10-26 11:15] MED LIST changes: -IMMUNE GLOBULIN 10% 10 GM in IV 1 EA IV ONE; -IMMUNE GLOBULIN 10% 20 GM in IV 1 EA IV ONE; -IMMUNE GLOBULIN 10% 5 GM in IV 1 EA IV ONE
[2022-10-26 11:21] VITALS: BP 138/66; O2SAT 96
[2022-10-26] MEDS ORDERED: IMMUNE GLOBULIN 10% 10 GM in IV 1 EA IV ONE (11:30)
[2022-10-26] MEDS ORDERED: IMMUNE GLOBULIN 10% 20 GM in IV 1 EA IV ONE (11:30)
[2022-10-26] MEDS ORDERED: IMMUNE GLOBULIN 10% 5 GM in IV 1 EA IV ONE (11:30)
[2022-10-26 12:00] VITALS: BP 129/74; O2SAT 97
[2022-10-26 12:30] VITALS: BP 137/74; O2SAT 96
[2022-10-26 14:00] VITALS: BP 122/62; O2SAT 99
[2022-10-26 14:33] VITALS: BP 133/65; O2SAT 98
== END 2022-10-26 14:30 ==
LOC: M INFU 11:15
PROVIDERS: ATTEND Nurse Practitioner Adult Health
DX: G35 Multiple sclerosis (principal); Z88.0 Allergy status to penicillin; Z88.2 Allergy status to sulfonamides; Z88.1 Allergy status to other antibiotic agents; Z88.8 Allergy status to other drugs, medicaments and biological substances
CPT/HCPCS: 96365; 96366; J1459

== ENCOUNTER → 2022-11-19 | Outpatient (REF) | payer MEDICARE, MEDICAID ==
[~2022-11-19] MED LIST changes: -CURRENT HEIGHT AND WEIGHT NEEDED ON PATIENT XX SCH
[2022-11-19 08:51] LABS: HEMATOCRIT 35.1 % (36.0-47.0); HEMOGLOBIN 10.5 g/dl (12.0-15.5); MEAN CORPUSCULAR HEMOGLOBIN 24.5 pg (27.0-33.0); MEAN CORPUSCULAR HGB CONC 29.9 g/dl (32.0-36.5); PLATELET COUNT, AUTOMATED 261 10^3/uL (150-450); RED BLOOD COUNT 4.28 10^6/uL (4.00-5.40); WHITE BLOOD COUNT 7.9 10^3/uL (4.0-10.0)
[2022-11-19 09:09] LABS: HEMOGLOBIN A1c 5.6 % (4.0-6.0)
[2022-11-19 09:24] LABS: BLOOD UREA NITROGEN 10 MG/DL (9-23); CALCIUM LEVEL 8.5 MG/DL (8.3-10.6); CARBON DIOXIDE LEVEL 35 MMOL/L (20-31); CHLORIDE LEVEL 106 MMOL/L (98-107); CHOLESTEROL LEVEL 117 MG/DL (<200); CHOLESTEROL RISK RATIO 4.13 (<5); CREATININE FOR GFR 0.25 MG/DL (0.55-1.30); GLOMERULAR FILTRATION RATE > 60.0 (>45); GLUCOSE, FASTING 72 MG/DL (74-106); HDL CHOLESTEROL 28.3 MG/DL (>40); LDL CHOLESTEROL 43.1 MG/DL (<100); NON-HDL-C 88.7 MG/DL; SODIUM LEVEL 145 MMOL/L (136-145); TRIGLYCERIDES LEVEL 228 MG/DL (<150)
[2022-11-19 09:28] LABS: THYROID STIMULATING HORMONE 1.232 uIU/ML (0.55-4.78)
== END ==
LOC: SKLAB5 08:45
PROVIDERS: ATTEND Nurse Practitioner Adult Health
DX: D64.9 Anemia, unspecified (principal); G35 Multiple sclerosis; E03.9 Hypothyroidism, unspecified; Z79.899 Other long term (current) drug therapy

== ENCOUNTER 2022-12-28 11:35 | Outpatient (CLI) | payer MEDICARE, MEDICAID ==
[~2022-12-28] VITALS: Ht 170.2 cm; Wt 69.0 kg
[~2022-12-28 11:35] MED LIST changes: +CEFD300C42 PO; +IMMUNE GLOBULIN 10% 10 GM in IV 1 EA IV ONE; +IMMUNE GLOBULIN 10% 20 GM in IV 1 EA IV ONE; +IMMUNE GLOBULIN 10% 5 GM in IV 1 EA IV ONE; -OXYB5TAB10 PO; +OXYB5TAB11 PO
[2022-12-28 11:53] VITALS: BP 166/82; O2SAT 93
[2022-12-28 13:15] VITALS: BP 163/77; O2SAT 98
[2022-12-28 14:15] VITALS: BP 151/69; O2SAT 98
[2022-12-28 15:15] VITALS: BP 167/72; O2SAT 96
[2022-12-28 15:55] VITALS: BP 168/78; O2SAT 96
[2022-12-28 16:05] VITALS: BP 158/67; O2SAT 98
== END 2022-12-28 16:05 | disposition home or self-care (01) ==
LOC: M INFU 11:35
PROVIDERS: ATTEND Nurse Practitioner Adult Health
DX: G35 Multiple sclerosis (principal); Z88.0 Allergy status to penicillin; Z88.2 Allergy status to sulfonamides; Z88.8 Allergy status to other drugs, medicaments and biological substances
CPT/HCPCS: 96365; 96366; J1459

== ENCOUNTER 2023-01-25 12:10 | Outpatient (CLI) | payer MEDICARE, MEDICAID ==
[2023-01-25 12:05] VITALS: BP 169/79; O2SAT 95
[~2023-01-25 12:10] MED LIST changes: +CEFD1CAP9 PO; -CEFD300C42 PO; -IMMUNE GLOBULIN 10% 10 GM in IV 1 EA IV ONE; -IMMUNE GLOBULIN 10% 20 GM in IV 1 EA IV ONE; -IMMUNE GLOBULIN 10% 5 GM in IV 1 EA IV ONE
[2023-01-25] MEDS ORDERED: IMMUNE GLOBULIN 10% 10 GM in IV 1 EA IV ONE (12:30)
[2023-01-25] MEDS ORDERED: IMMUNE GLOBULIN 10% 5 GM in IV 1 EA IV ONE (12:30)
[2023-01-25] MEDS ORDERED: IMMUNE GLOBULIN 10% 20 GM in IV 1 EA IV ONE (12:30)
[2023-01-25 13:00] VITALS: BP 154/83; O2SAT 98
[2023-01-25 13:30] VITALS: BP 147/80; O2SAT 98
[2023-01-25 14:00] VITALS: BP 136/88; O2SAT 98
[2023-01-25 15:32] VITALS: BP 132/62; O2SAT 97
== END 2023-01-25 15:30 ==
LOC: M INFU 12:10
PROVIDERS: ATTEND Nurse Practitioner Adult Health
DX: G35 Multiple sclerosis (principal); Z88.0 Allergy status to penicillin; Z88.2 Allergy status to sulfonamides; Z88.1 Allergy status to other antibiotic agents; Z88.8 Allergy status to other drugs, medicaments and biological substances
CPT/HCPCS: 96365; 96366; J1459

== ENCOUNTER → 2023-02-18 | Outpatient (REF) | payer MEDICARE, MEDICAID ==
[2023-02-18 07:36] LABS: MEAN CORPUSCULAR HEMOGLOBIN 24.1 pg (27.0-33.0); MEAN CORPUSCULAR HGB CONC 30.3 g/dl (32.0-36.5); MEAN CORPUSCULAR VOLUME 79.5 fl (80.0-96.0); PLATELET COUNT, AUTOMATED 249 10^3/uL (150-450); RED BLOOD COUNT 4.15 10^6/uL (4.00-5.40); WHITE BLOOD COUNT 7.4 10^3/uL (4.0-10.0)
[2023-02-18 08:09] LABS: BLOOD UREA NITROGEN 12 MG/DL (9-23); CARBON DIOXIDE LEVEL 32 MMOL/L (20-31); CHLORIDE LEVEL 106 MMOL/L (98-107); CREATININE FOR GFR 0.21 MG/DL (0.55-1.30); GLOMERULAR FILTRATION RATE > 60.0 (>39); GLUCOSE, FASTING 78 MG/DL (74-106); POTASSIUM SERUM 4.3 MMOL/L (3.5-5.1); SODIUM LEVEL 146 MMOL/L (136-145)
== END ==
LOC: SKLAB5 10:39
PROVIDERS: ATTEND Nurse Practitioner Adult Health
DX: G35 Multiple sclerosis (principal); D64.9 Anemia, unspecified

== ENCOUNTER 2023-02-22 11:35 | Outpatient (CLI) | payer MEDICARE, MEDICAID ==
[~2023-02-22] VITALS: Ht 162.6 cm; Wt 70.0 kg
[2023-02-22] MEDS ORDERED: IMMUNE GLOBULIN 10% 10 GM in IV 1 EA IV ONE (11:45)
[2023-02-22] MEDS ORDERED: IMMUNE GLOBULIN 10% 20 GM in IV 1 EA IV ONE (11:45)
[2023-02-22] MEDS ORDERED: IMMUNE GLOBULIN 10% 5 GM in IV 1 EA IV ONE (11:45)
[2023-02-22 12:07] VITALS: BP 168/68; O2SAT 98
[2023-02-22 14:00] VITALS: BP 151/72; O2SAT 98
[2023-02-22 14:35] VITALS: BP 163/76; O2SAT 98
[2023-02-22 15:00] VITALS: BP 145/72; O2SAT 98
== END 2023-02-22 15:00 | disposition home or self-care (01) ==
LOC: M INFU 11:35
PROVIDERS: ATTEND Nurse Practitioner Adult Health
DX: G35 Multiple sclerosis (principal); Z88.0 Allergy status to penicillin; Z88.2 Allergy status to sulfonamides; Z88.1 Allergy status to other antibiotic agents; Z88.8 Allergy status to other drugs, medicaments and biological substances
CPT/HCPCS: 96365; 96366; J1459

== ENCOUNTER 2023-03-29 10:18 | Outpatient (CLI) | payer MEDICARE, MEDICAID ==
[~2023-03-29] VITALS: Ht 162.6 cm; Wt 70.0 kg
[2023-03-29 10:30] VITALS: BP 161/76; O2SAT 94
[2023-03-29] MEDS ORDERED: IMMUNE GLOBULIN 10% 10 GM in IV 1 EA IV ONE (10:50)
[2023-03-29] MEDS ORDERED: IMMUNE GLOBULIN 10% 20 GM in IV 1 EA IV ONE (10:50)
[2023-03-29] MEDS ORDERED: IMMUNE GLOBULIN 10% 5 GM in IV 1 EA IV ONE (10:50)
[2023-03-29 12:30] VITALS: BP 144/76; O2SAT 95
[2023-03-29 15:00] VITALS: BP 136/64; O2SAT 95
== END 2023-03-29 15:00 | disposition home or self-care (01) ==
LOC: M INFU 10:18
PROVIDERS: ATTEND Nurse Practitioner Adult Health
DX: G35 Multiple sclerosis (principal); Z88.0 Allergy status to penicillin; Z88.2 Allergy status to sulfonamides; Z88.1 Allergy status to other antibiotic agents; Z88.8 Allergy status to other drugs, medicaments and biological substances
CPT/HCPCS: 96365; 96366; J1459

== ENCOUNTER 2023-04-27 11:51 | Outpatient (CLI) | payer MEDICARE, MEDICAID ==
[~2023-04-27] VITALS: Ht 162.6 cm; Wt 70.0 kg
[~2023-04-27 11:51] MED LIST changes: -OXYB5TAB11 PO; +OXYB5TAB14 PO
[2023-04-27 12:10] VITALS: BP 158/78; O2SAT 93
[2023-04-27] MEDS: IMMUNE GLOBULIN 10% 5 GM in IV 1 EA IV ONE (12:40)
[2023-04-27] MEDS: IMMUNE GLOBULIN 10% 10 GM in IV 1 EA IV ONE (12:40)
[2023-04-27] MEDS: IMMUNE GLOBULIN 10% 20 GM in IV 1 EA IV ONE (12:41)
[2023-04-27 13:30] VITALS: BP 158/78; O2SAT 96
[2023-04-27 14:26] VITALS: BP 163/76; O2SAT 97
[2023-04-27 16:06] VITALS: BP 146/70; O2SAT 95
== END 2023-04-27 16:15 ==
LOC: M INFU 11:51
PROVIDERS: ATTEND Nurse Practitioner Adult Health
DX: G35 Multiple sclerosis (principal); Z88.0 Allergy status to penicillin; Z88.1 Allergy status to other antibiotic agents; Z88.2 Allergy status to sulfonamides
CPT/HCPCS: 96365; 96366; J1459

== ENCOUNTER 2023-05-24 10:20 | Outpatient (CLI) | payer MEDICARE, MEDICAID ==
[~2023-05-24 10:20] MED LIST changes: +IMMUNE GLOBULIN 10% 10 GM in IV 1 EA IV ONE
[2023-05-24 10:25] VITALS: BP 168/70; O2SAT 98
[2023-05-24] MEDS: IMMUNE GLOBULIN 10% 5 GM in IV 1 EA IV ONE (11:35)
[2023-05-24] MEDS: IMMUNE GLOBULIN 10% 10 GM in IV 1 EA IV ONE (11:35)
[2023-05-24] MEDS: IMMUNE GLOBULIN 10% 20 GM in IV 1 EA IV ONE (11:36)
[2023-05-24 12:45] VITALS: BP 156/80; O2SAT 97
[2023-05-24 13:15] VITALS: BP 164/89; O2SAT 100
[2023-05-24 15:04] VITALS: BP 169/81; O2SAT 96
== END 2023-05-24 15:05 | disposition home or self-care (01) ==
LOC: M INFU 10:20
PROVIDERS: ATTEND Nurse Practitioner Adult Health
DX: G35 Multiple sclerosis (principal); Z88.0 Allergy status to penicillin; Z88.1 Allergy status to other antibiotic agents; Z88.2 Allergy status to sulfonamides
CPT/HCPCS: 96365; 96366; J1459

== ENCOUNTER → 2023-05-24 | Outpatient (REF) | payer MEDICARE, MEDICAID | LOC: SKLAB5 11:02 | PROVIDERS: ATTEND Nurse Practitioner Adult Health | DX: E11.9 Type 2 diabetes mellitus without complications (principal); Z53.8 Procedure and treatment not carried out for other reasons ==

== ENCOUNTER → 2023-06-01 | Outpatient (REF) | payer MEDICARE, MEDICAID ==
[~2023-06-01] MED LIST changes: -IMMUNE GLOBULIN 10% 10 GM in IV 1 EA IV ONE
[2023-06-01 09:42] LABS: HEMOGLOBIN A1c 5.4 % (4.0-6.0)
== END ==
LOC: SKLAB5 08:25
PROVIDERS: ATTEND Nurse Practitioner Adult Health
DX: E11.9 Type 2 diabetes mellitus without complications (principal)

== ENCOUNTER → 2023-06-09 | Outpatient (REF) | payer MEDICARE, MEDICAID ==
[2023-06-09 09:32] LABS: HEMOGLOBIN A1c 5.2 % (4.0-6.0)
== END ==
LOC: SKLAB5 13:41
PROVIDERS: ATTEND Nurse Practitioner Adult Health
DX: E11.9 Type 2 diabetes mellitus without complications (principal)

== ENCOUNTER 2023-06-21 10:23 | Outpatient (CLI) | payer MEDICARE, MEDICAID ==
[~2023-06-21 10:23] MED LIST changes: +GLIM1TAB4 PO; -GLIM1TAB84 PO; +IMMUNE GLOBULIN 10% 5 GM in IV 1 EA IV ONE
[2023-06-21] MEDS: IMMUNE GLOBULIN 10% 5 GM in IV 1 EA IV ONE (11:11)
[2023-06-21] MEDS: IMMUNE GLOBULIN 10% 20 GM in IV 1 EA IV ONE (11:16)
[2023-06-21] MEDS: IMMUNE GLOBULIN 10% 10 GM in IV 1 EA IV ONE (11:17)
[2023-06-21 12:10] VITALS: BP 127/72; O2SAT 96
[2023-06-21 13:10] VITALS: BP 130/84; O2SAT 96
[2023-06-21 14:10] VITALS: BP 133/73; O2SAT 97
== END 2023-06-21 14:45 | disposition home or self-care (01) ==
LOC: M INFU 10:23
PROVIDERS: ATTEND Nurse Practitioner Adult Health
DX: G35 Multiple sclerosis (principal); Z88.0 Allergy status to penicillin; Z88.2 Allergy status to sulfonamides; Z88.1 Allergy status to other antibiotic agents; Z88.8 Allergy status to other drugs, medicaments and biological substances
CPT/HCPCS: 96365; 96366; J1459

== ENCOUNTER → 2023-06-21 | Outpatient (REF) | payer MEDICARE, MEDICAID ==
[~2023-06-21] MED LIST changes: -GLIM1TAB4 PO; +GLIM1TAB84 PO
[2023-06-21 08:35] LABS: HEMATOCRIT 33.7 % (36.0-47.0); MEAN CORPUSCULAR HEMOGLOBIN 22.8 pg (27.0-33.0); MEAN CORPUSCULAR HGB CONC 29.7 g/dl (32.0-36.5); MEAN CORPUSCULAR VOLUME 76.9 fl (80.0-96.0); PLATELET COUNT, AUTOMATED 239 10^3/uL (150-450); RED BLOOD COUNT 4.38 10^6/uL (4.00-5.40)
[2023-06-21 09:00] LABS: BLOOD UREA NITROGEN 10 MG/DL (9-23); CALCIUM LEVEL 8.4 MG/DL (8.3-10.6); CARBON DIOXIDE LEVEL 37 MMOL/L (20-31); CHLORIDE LEVEL 106 MMOL/L (98-107); CREATININE FOR GFR 0.27 MG/DL (0.55-1.30); GLOMERULAR FILTRATION RATE > 60.0 (>39); GLUCOSE, FASTING 114 MG/DL (74-106); SODIUM LEVEL 146 MMOL/L (136-145)
[2023-06-21 09:03] LABS: VITAMIN B12 LEVEL 863 PG/ML (211-911)
== END ==
LOC: SKLAB5 07:00
PROVIDERS: ATTEND Nurse Practitioner Adult Health
DX: D64.9 Anemia, unspecified (principal); G35 Multiple sclerosis

== ENCOUNTER 2023-07-19 10:37 | Outpatient (CLI) | payer MEDICARE, MEDICAID ==
[~2023-07-19 10:37] MED LIST changes: -GLIM1TAB4 PO; +GLIM1TAB84 PO; -IMMUNE GLOBULIN 10% 5 GM in IV 1 EA IV ONE
[2023-07-19 10:55] VITALS: BP 169/79; O2SAT 97
[2023-07-19] MEDS: IMMUNE GLOBULIN 10% 20 GM in IV 1 EA IV ONE (11:34)
[2023-07-19] MEDS: IMMUNE GLOBULIN 10% 5 GM in IV 1 EA IV ONE (11:35)
[2023-07-19] MEDS: IMMUNE GLOBULIN 10% 10 GM in IV 1 EA IV ONE (11:36)
[2023-07-19 12:00] VITALS: BP 157/83; O2SAT 97
[2023-07-19 13:00] VITALS: BP 140/80; O2SAT 98
[2023-07-19 13:30] VITALS: BP 154/88; O2SAT 99
== END 2023-07-19 15:13 | disposition home or self-care (01) ==
LOC: M INFU 10:37
PROVIDERS: ATTEND Nurse Practitioner Adult Health
DX: G35 Multiple sclerosis (principal); Z88.0 Allergy status to penicillin; Z88.1 Allergy status to other antibiotic agents; Z88.2 Allergy status to sulfonamides
CPT/HCPCS: 96365; 96366; J1459

== ENCOUNTER → 2023-08-15 | Outpatient (CLI) | payer MEDICARE, MEDICAID | LOC: M RAD 09:29 | PROVIDERS: ATTEND Nurse Practitioner Adult Health | DX: M54.59 Other low back pain (principal) ==

== ENCOUNTER 2023-08-29 11:05 | Outpatient (CLI) | payer MEDICARE, MEDICAID ==
[~2023-08-29 11:05] MED LIST changes: +IMMUNE GLOBULIN 10% 10 GM in IV 1 EA IV ONE; +IMMUNE GLOBULIN 10% 20 GM in IV 1 EA IV ONE; +IMMUNE GLOBULIN 10% 5 GM in IV 1 EA IV ONE
[2023-08-29 11:15] VITALS: BP 168/77; O2SAT 96
[2023-08-29] MEDS: IMMUNE GLOBULIN 10% 20 GM in IV 1 EA IV ONE (11:49)
[2023-08-29] MEDS: IMMUNE GLOBULIN 10% 10 GM in IV 1 EA IV ONE (11:49)
[2023-08-29] MEDS: IMMUNE GLOBULIN 10% 5 GM in IV 1 EA IV ONE (11:51)
[2023-08-29 12:20] VITALS: BP 145/69; O2SAT 96
[2023-08-29 12:50] VITALS: BP 135/72; O2SAT 99
[2023-08-29 13:30] VITALS: BP 144/70; O2SAT 99
[2023-08-29 15:20] VITALS: BP 169/88; O2SAT 96
== END 2023-08-29 15:50 | disposition home or self-care (01) ==
LOC: M INFU 11:05
PROVIDERS: ATTEND Nurse Practitioner Adult Health
DX: G35 Multiple sclerosis (principal); Z88.0 Allergy status to penicillin; Z88.2 Allergy status to sulfonamides; Z88.1 Allergy status to other antibiotic agents
CPT/HCPCS: 96365; 96366; J1459

== ENCOUNTER 2023-09-26 11:00 | Outpatient (CLI) | payer MEDICARE, MEDICAID ==
[2023-09-26 11:00] VITALS: BP 123/77; O2SAT 98
[~2023-09-26 11:00] MED LIST changes: -IMMUNE GLOBULIN 10% 10 GM in IV 1 EA IV ONE; -IMMUNE GLOBULIN 10% 20 GM in IV 1 EA IV ONE; -IMMUNE GLOBULIN 10% 5 GM in IV 1 EA IV ONE
[2023-09-26] MEDS: IMMUNE GLOBULIN 10% 5 GM in IV 1 EA IV ONE (11:12)
[2023-09-26] MEDS: IMMUNE GLOBULIN 10% 20 GM in IV 1 EA IV ONE (11:13)
[2023-09-26] MEDS: IMMUNE GLOBULIN 10% 10 GM in IV 1 EA IV ONE (11:14)
[2023-09-26 12:00] VITALS: BP 130/68; O2SAT 98
[2023-09-26 13:00] VITALS: BP 125/69; O2SAT 98
[2023-09-26 14:00] VITALS: BP 130/74; O2SAT 98
[2023-09-26 15:00] VITALS: BP 129/78; O2SAT 98
== END 2023-09-26 15:15 ==
LOC: M INFU 11:00
PROVIDERS: ATTEND Nurse Practitioner Adult Health
DX: G35 Multiple sclerosis (principal); Z88.0 Allergy status to penicillin; Z88.1 Allergy status to other antibiotic agents; Z88.2 Allergy status to sulfonamides
CPT/HCPCS: 96365; 96366; J1459

== ENCOUNTER → 2023-10-03 | Outpatient (CLI) | payer MEDICARE, MEDICAID | LOC: M WHC 11:45 | PROVIDERS: ATTEND Nurse Practitioner | DX: Z12.31 Encounter for screening mammogram for malignant neoplasm of breast (principal) ==

== ENCOUNTER → 2023-10-11 | Outpatient (REF) | payer MEDICARE, MEDICAID ==
[2023-10-11 15:28] LABS: HEMATOCRIT 34.9 % (36.0-47.0); HEMOGLOBIN 10.4 g/dl (12.0-15.5); MEAN CORPUSCULAR HEMOGLOBIN 22.9 pg (27.0-33.0); MEAN CORPUSCULAR HGB CONC 29.8 g/dl (32.0-36.5); MEAN CORPUSCULAR VOLUME 76.7 fl (80.0-96.0); PLATELET COUNT, AUTOMATED 205 10^3/uL (150-450); RED BLOOD COUNT 4.55 10^6/uL (4.00-5.40); WHITE BLOOD COUNT 5.9 10^3/uL (4.0-10.0)
[2023-10-11 15:57] LABS: BLOOD UREA NITROGEN 8 MG/DL (9-23); CALCIUM LEVEL 8.2 MG/DL (8.3-10.6); CARBON DIOXIDE LEVEL 33 MMOL/L (20-31); CHLORIDE LEVEL 105 MMOL/L (98-107); CREATININE FOR GFR 0.23 MG/DL (0.55-1.30); GLOMERULAR FILTRATION RATE > 60.0 (>39); GLUCOSE, FASTING 196 MG/DL (74-106); SODIUM LEVEL 141 MMOL/L (136-145)
== END ==
LOC: SKLAB5 12:41
PROVIDERS: ATTEND Internal Medicine
DX: U07.1 COVID-19 (principal); Z79.899 Other long term (current) drug therapy

== ENCOUNTER 2023-10-24 11:15 | Outpatient (CLI) | payer MEDICAID, MEDICARE ==
[2023-10-24 11:15] VITALS: BP 120/66; O2SAT 97
[~2023-10-24 11:15] MED LIST changes: +PETR3.5O OU
[2023-10-24] MEDS: IMMUNE GLOBULIN 10% 20 GM in IV 1 EA IV ONE (11:45)
[2023-10-24] MEDS: IMMUNE GLOBULIN 10% 10 GM in IV 1 EA IV ONE (11:50)
[2023-10-24] MEDS: IMMUNE GLOBULIN 10% 5 GM in IV 1 EA IV ONE (11:50)
[2023-10-24 12:30] VITALS: BP 118/57; O2SAT 96
[2023-10-24 13:00] VITALS: BP 119/63; O2SAT 97
[2023-10-24 14:30] VITALS: BP 188/90; O2SAT 96
[2023-10-24 15:20] VITALS: BP 170/88; O2SAT 98
== END 2023-10-24 15:30 ==
LOC: M INFU 11:15
PROVIDERS: ATTEND Nurse Practitioner Adult Health
DX: G35 Multiple sclerosis (principal); Z88.0 Allergy status to penicillin; Z88.1 Allergy status to other antibiotic agents; Z88.2 Allergy status to sulfonamides
CPT/HCPCS: 96365; 96366; J1459

== ENCOUNTER → 2023-10-25 | Outpatient (REF) | payer MEDICARE, MEDICAID ==
[2023-10-25 09:13] LABS: HEMATOCRIT 35.3 % (36.0-47.0); HEMOGLOBIN 10.6 g/dl (12.0-15.5); MEAN CORPUSCULAR VOLUME 76.6 fl (80.0-96.0); PLATELET COUNT, AUTOMATED 181 10^3/uL (150-450); RED BLOOD COUNT 4.61 10^6/uL (4.00-5.40); WHITE BLOOD COUNT 3.3 10^3/uL (4.0-10.0)
[2023-10-25 09:42] LABS: BLOOD UREA NITROGEN 8 MG/DL (9-23); CALCIUM LEVEL 8.4 MG/DL (8.3-10.6); CARBON DIOXIDE LEVEL 36 MMOL/L (20-31); CHLORIDE LEVEL 105 MMOL/L (98-107); CREATININE FOR GFR 0.21 MG/DL (0.55-1.30); GLOMERULAR FILTRATION RATE > 60.0 (>39); GLUCOSE, FASTING 145 MG/DL (74-106); POTASSIUM SERUM 4.4 MMOL/L (3.5-5.1); SODIUM LEVEL 142 MMOL/L (136-145); VITAMIN B12 LEVEL 669 PG/ML (211-911)
== END ==
LOC: SKLAB5 07:00
PROVIDERS: ATTEND Internal Medicine
DX: D64.9 Anemia, unspecified (principal); G35 Multiple sclerosis

== ENCOUNTER 2023-11-21 10:30 | Outpatient (CLI) | payer MEDICARE, MEDICAID ==
[2023-11-21] MEDS: IMMUNE GLOBULIN 10% 20 GM in IV 1 EA IV ONE (11:15)
[2023-11-21] MEDS: IMMUNE GLOBULIN 10% 10 GM in IV 1 EA IV ONE (11:15)
[2023-11-21] MEDS: IMMUNE GLOBULIN 10% 5 GM in IV 1 EA IV ONE (11:16)
[2023-11-21 11:41] VITALS: BP 170/82; O2SAT 98
[2023-11-21 14:58] VITALS: BP 160/70; O2SAT 97
== END 2023-11-21 14:59 ==
LOC: M INFU 10:30
PROVIDERS: ATTEND Nurse Practitioner Adult Health
DX: G35 Multiple sclerosis (principal); Z88.0 Allergy status to penicillin; Z88.2 Allergy status to sulfonamides; Z88.1 Allergy status to other antibiotic agents
CPT/HCPCS: 96365; 96366; J1459

== ENCOUNTER → 2023-11-22 | Outpatient (REF) | payer MEDICARE, MEDICAID ==
[2023-11-22 15:00] LABS: THYROID STIMULATING HORMONE 0.707 uIU/ML (0.55-4.78)
[2023-11-22 15:05] LABS: CHOLESTEROL RISK RATIO 4.73 (<5); HDL CHOLESTEROL 32.1 MG/DL (>40); LDL CHOLESTEROL 56.9 MG/DL (<100); NON-HDL-C 119.9 MG/DL
== END ==
LOC: SKLAB5 07:00
PROVIDERS: ATTEND Internal Medicine
DX: E78.00 Pure hypercholesterolemia, unspecified (principal)

== ENCOUNTER 2023-12-22 11:19 | Outpatient (CLI) | payer MEDICARE, MEDICAID ==
[~2023-12-22] VITALS: Ht 170.2 cm; Wt 68.0 kg
[2023-12-22 11:30] VITALS: BP 164/88; O2SAT 90
[2023-12-22 11:47] VITALS: BP 164/88; O2SAT 95
[2023-12-22] MEDS: IMMUNE GLOBULIN 10% 20 GM in IV 1 EA IV ONE (11:50)
[2023-12-22 12:15] VITALS: BP 191/86; O2SAT 98
[2023-12-22 12:45] VITALS: BP 172/90; O2SAT 97
[2023-12-22 13:15] VITALS: BP 170/84; O2SAT 98
[2023-12-22] MEDS: IMMUNE GLOBULIN 10% 10 GM in IV 1 EA IV ONE (14:07)
[2023-12-22] MEDS: IMMUNE GLOBULIN 10% 5 GM in IV 1 EA IV ONE (14:34)
[2023-12-22 15:10] VITALS: BP 160/88; O2SAT 96
== END 2023-12-22 15:30 ==
LOC: M INFU 11:19
PROVIDERS: ATTEND Nurse Practitioner Adult Health
DX: G35 Multiple sclerosis (principal); Z88.0 Allergy status to penicillin; Z88.1 Allergy status to other antibiotic agents; Z88.2 Allergy status to sulfonamides
CPT/HCPCS: 96365; 96366; J1459

== ENCOUNTER 2024-01-20 10:45 | Outpatient (CLI) | payer MEDICARE, MEDICAID ==
[~2024-01-20 10:45] MED LIST changes: +ALBUTEROL SULFATE 2.5MG/0.5ML INH NEB SOLN INH PRN; +EPINEPHrine INJ 1 MG/ML 1ML AMP IM PRN; +METF-1156 PO; -METF-817 PO; +NS 1,000 ML IV SCH; +NYST1POW3 TOP; -NYST1POW9 TOP; +diphenhydrAMINE 50MG/ML VIAL IV PRN; +methylPREDNISolone 125MG 2ML VIAL IV PRN
[2024-01-20 10:50] VITALS: BP 160/80; O2SAT 93
[2024-01-20] MEDS: IMMUNE GLOBULIN 10% 20 GM in IV 1 EA IV ONE (11:36)
[2024-01-20] MEDS: IMMUNE GLOBULIN 10% 10 GM in IV 1 EA IV ONE (11:37)
[2024-01-20] MEDS: IMMUNE GLOBULIN 10% 5 GM in IV 1 EA IV ONE (11:37)
[2024-01-20 12:15] VITALS: BP 160/78; O2SAT 95
[2024-01-20 12:45] VITALS: BP 146/84; O2SAT 95
[2024-01-20 13:15] VITALS: BP 148/88; O2SAT 96
[2024-01-20 14:55] VITALS: BP 142/60; O2SAT 98
== END 2024-01-20 15:10 | disposition home or self-care (01) ==
LOC: M INFU 10:45
PROVIDERS: ATTEND Nurse Practitioner Adult Health
DX: G35 Multiple sclerosis (principal); Z88.0 Allergy status to penicillin; Z88.1 Allergy status to other antibiotic agents; Z88.2 Allergy status to sulfonamides
CPT/HCPCS: 96365; 96366; J1459

== ENCOUNTER 2024-02-17 11:35 | Outpatient (CLI) | payer MEDICARE, MEDICAID ==
[~2024-02-17 11:35] MED LIST changes: +NS (Normal Saline) 0.9% 1,000 ML IV SCH; -NS 1,000 ML IV SCH
[2024-02-17] MEDS: IMMUNE GLOBULIN 10% 20 GM in IV 1 EA IV ONE (11:50)
[2024-02-17] MEDS: IMMUNE GLOBULIN 10% 10 GM in IV 1 EA IV ONE (11:51)
[2024-02-17] MEDS: IMMUNE GLOBULIN 10% 5 GM in IV 1 EA IV ONE (11:52)
[2024-02-17 12:30] VITALS: BP 137/84; O2SAT 100
[2024-02-17 13:00] VITALS: BP 142/82; O2SAT 98
[2024-02-17 13:30] VITALS: BP 136/84; O2SAT 98
[2024-02-17 14:30] VITALS: BP 137/88; O2SAT 98
[2024-02-17 15:00] VITALS: BP 150/100; O2SAT 98
== END 2024-02-17 15:10 ==
LOC: M INFU 11:35
PROVIDERS: ATTEND Nurse Practitioner Adult Health
DX: G35 Multiple sclerosis (principal); Z88.0 Allergy status to penicillin; Z88.1 Allergy status to other antibiotic agents; Z88.2 Allergy status to sulfonamides
CPT/HCPCS: 96365; 96366; J1459

== ENCOUNTER → 2024-03-09 | Outpatient (REF) | payer MEDICARE, MEDICAID ==
[~2024-03-09] MED LIST changes: -ALBUTEROL SULFATE 2.5MG/0.5ML INH NEB SOLN INH PRN; -EPINEPHrine INJ 1 MG/ML 1ML AMP IM PRN; -NS (Normal Saline) 0.9% 1,000 ML IV SCH; -diphenhydrAMINE 50MG/ML VIAL IV PRN; -methylPREDNISolone 125MG 2ML VIAL IV PRN
[2024-03-09 10:25] LABS: HEMATOCRIT 34.6 % (36.0-47.0); HEMOGLOBIN 10.7 g/dl (12.0-15.5); MEAN CORPUSCULAR HEMOGLOBIN 23.9 pg (27.0-33.0); MEAN CORPUSCULAR HGB CONC 30.9 g/dl (32.0-36.5); MEAN CORPUSCULAR VOLUME 77.2 fl (80.0-96.0); PLATELET COUNT, AUTOMATED 265 10^3/uL (150-450); RED BLOOD COUNT 4.48 10^6/uL (4.00-5.40); WHITE BLOOD COUNT 7.4 10^3/uL (4.0-10.0)
[2024-03-09 10:56] LABS: BLOOD UREA NITROGEN 8 MG/DL (9-23); CALCIUM LEVEL 8.8 MG/DL (8.3-10.6); CARBON DIOXIDE LEVEL 34 MMOL/L (20-31); CHLORIDE LEVEL 101 MMOL/L (98-107); CREATININE FOR GFR 0.27 MG/DL (0.55-1.30); GLOMERULAR FILTRATION RATE > 60.0 (>39); GLUCOSE, FASTING 268 MG/DL (74-106); POTASSIUM SERUM 4.1 MMOL/L (3.5-5.1); SODIUM LEVEL 141 MMOL/L (136-145)
[2024-03-09 10:57] LABS: VITAMIN B12 LEVEL 622 PG/ML (211-911)
== END ==
LOC: SKLAB5 07:00
PROVIDERS: ATTEND Internal Medicine
DX: E53.8 Deficiency of other specified B group vitamins (principal); G35 Multiple sclerosis; D64.9 Anemia, unspecified

== ENCOUNTER 2024-03-16 10:54 | Outpatient (CLI) | payer MEDICARE, MEDICAID ==
[~2024-03-16] VITALS: Ht 165.1 cm; Wt 65.9 kg
[~2024-03-16 10:54] MED LIST changes: +ALBUTEROL SULFATE 2.5MG/0.5ML INH NEB SOLN INH PRN; +EPINEPHrine INJ 1 MG/ML 1ML AMP IM PRN; +NS (Normal Saline) 0.9% 1,000 ML IV SCH; +diphenhydrAMINE 50MG/ML VIAL IV PRN; +methylPREDNISolone 125MG 2ML VIAL IV PRN
[2024-03-16 11:00] VITALS: BP 148/90; O2SAT 95
[2024-03-16] MEDS: IMMUNE GLOBULIN 10% 20 GM in IV 1 EA IV ONE (11:44)
[2024-03-16] MEDS: IMMUNE GLOBULIN 10% 5 GM in IV 1 EA IV ONE (11:45)
[2024-03-16] MEDS: IMMUNE GLOBULIN 10% 10 GM in IV 1 EA IV ONE (11:46)
[2024-03-16 12:15] VITALS: BP 142/78; O2SAT 98
[2024-03-16 12:45] VITALS: BP 144/82; O2SAT 97
[2024-03-16 13:15] VITALS: BP 146/84; O2SAT 97
[2024-03-16 14:15] VITALS: BP 144/88; O2SAT 96
[2024-03-16 15:16] VITALS: BP 160/88; O2SAT 97
== END 2024-03-16 15:30 ==
LOC: M INFU 10:54
PROVIDERS: ATTEND Nurse Practitioner Adult Health
DX: G35 Multiple sclerosis (principal); Z88.0 Allergy status to penicillin; Z88.1 Allergy status to other antibiotic agents; Z88.2 Allergy status to sulfonamides
CPT/HCPCS: 96365; 96366; J1459

== ENCOUNTER → 2024-03-29 | Outpatient (REF) | payer MEDICARE, MEDICAID ==
[~2024-03-29] MED LIST changes: -ALBUTEROL SULFATE 2.5MG/0.5ML INH NEB SOLN INH PRN; -EPINEPHrine INJ 1 MG/ML 1ML AMP IM PRN; -NS (Normal Saline) 0.9% 1,000 ML IV SCH; -diphenhydrAMINE 50MG/ML VIAL IV PRN; -methylPREDNISolone 125MG 2ML VIAL IV PRN
[2024-03-29 07:26] LABS: HEMOGLOBIN A1c 8.2 % (4.0-6.0)
== END ==
LOC: SKLAB5 07:00
PROVIDERS: ATTEND Internal Medicine
DX: E11.9 Type 2 diabetes mellitus without complications (principal)

== ENCOUNTER 2024-04-16 10:47 | Outpatient (CLI) | payer MEDICARE, MEDICAID ==
[~2024-04-16 10:47] MED LIST changes: +ALBUTEROL SULFATE 2.5MG/0.5ML INH NEB SOLN INH PRN; +EPINEPHrine INJ 1 MG/ML 1ML AMP IM PRN; +NS (Normal Saline) 0.9% 1,000 ML IV SCH; +diphenhydrAMINE 50MG/ML VIAL IV PRN; +methylPREDNISolone 125MG 2ML VIAL IV PRN
[2024-04-16 10:50] VITALS: BP 168/78; O2SAT 99
[2024-04-16] MEDS: IMMUNE GLOBULIN 10% 20 GM in IV 1 EA IV ONE (11:21)
[2024-04-16] MEDS: IMMUNE GLOBULIN 10% 10 GM in IV 1 EA IV ONE (11:22)
[2024-04-16] MEDS: IMMUNE GLOBULIN 10% 5 GM in IV 1 EA IV ONE (11:22)
[2024-04-16 12:00] VITALS: BP 162/76; O2SAT 98
[2024-04-16 12:30] VITALS: BP 158/80; O2SAT 99
[2024-04-16 13:00] VITALS: BP 161/84; O2SAT 98
[2024-04-16 14:30] VITALS: BP 158/70; O2SAT 99
== END 2024-04-16 14:55 ==
LOC: M INFU 10:47
PROVIDERS: ATTEND Nurse Practitioner Adult Health
DX: G35 Multiple sclerosis (principal); Z88.0 Allergy status to penicillin; Z88.1 Allergy status to other antibiotic agents; Z88.2 Allergy status to sulfonamides
CPT/HCPCS: 96365; 96366; J1459

== ENCOUNTER → 2024-04-17 | Outpatient (CLI) | payer MEDICARE ==
[~2024-04-17] MED LIST changes: -ALBUTEROL SULFATE 2.5MG/0.5ML INH NEB SOLN INH PRN; -EPINEPHrine INJ 1 MG/ML 1ML AMP IM PRN; -NS (Normal Saline) 0.9% 1,000 ML IV SCH; -diphenhydrAMINE 50MG/ML VIAL IV PRN; -methylPREDNISolone 125MG 2ML VIAL IV PRN
== END ==
LOC: M RAD 15:09
PROVIDERS: ATTEND Nurse Practitioner Adult Health
DX: M19.071 Primary osteoarthritis, right ankle and foot (principal)

== ENCOUNTER → 2024-05-21 | Outpatient (REF) | payer MEDICARE ==
[~2024-05-21] MED LIST changes: +GLIP-318 PO; -GLIP5TAB20 PO
[2024-05-21 14:22] LABS: HEMOGLOBIN A1c 7.7 % (4.0-6.0)
== END ==
LOC: SKLAB5 13:16
PROVIDERS: ATTEND Internal Medicine
DX: E11.9 Type 2 diabetes mellitus without complications (principal)

== ENCOUNTER 2024-05-22 11:29 | Outpatient (CLI) | payer MEDICARE ==
[~2024-05-22 11:29] MED LIST changes: +ALBUTEROL SULFATE 2.5MG/0.5ML INH NEB SOLN INH PRN; +EPINEPHrine INJ 1 MG/ML 1ML AMP IM PRN; +IMMUNE GLOBULIN 10% 10 GM in IV 1 EA IV ONE; +IMMUNE GLOBULIN 10% 20 GM in IV 1 EA IV ONE; +IMMUNE GLOBULIN 10% 5 GM in IV 1 EA IV ONE; +NS (Normal Saline) 0.9% 1,000 ML IV SCH; +diphenhydrAMINE 50MG/ML VIAL IV PRN; +methylPREDNISolone 125MG 2ML VIAL IV PRN
[2024-05-22 11:40] VITALS: BP 148/73; O2SAT 95
[2024-05-22] MEDS: IMMUNE GLOBULIN 10% 5 GM in IV 1 EA IV ONE (11:50)
[2024-05-22] MEDS: IMMUNE GLOBULIN 10% 10 GM in IV 1 EA IV ONE (11:50)
[2024-05-22] MEDS: IMMUNE GLOBULIN 10% 20 GM in IV 1 EA IV ONE (11:51)
[2024-05-22 12:30] VITALS: BP 130/74; O2SAT 97
[2024-05-22 13:00] VITALS: BP 128/70; O2SAT 98
[2024-05-22 13:30] VITALS: BP 129/71; O2SAT 97
[2024-05-22 15:00] VITALS: BP 122/68; O2SAT 97
== END 2024-05-22 15:06 ==
LOC: M INFU 11:29
PROVIDERS: ATTEND Internal Medicine
DX: G35 Multiple sclerosis (principal); E11.9 Type 2 diabetes mellitus without complications; Z88.0 Allergy status to penicillin; Z88.1 Allergy status to other antibiotic agents; Z88.2 Allergy status to sulfonamides
CPT/HCPCS: 96365; 96366; J1459

== ENCOUNTER 2024-06-22 10:45 | Outpatient (CLI) | payer MEDICARE ==
[~2024-06-22] VITALS: Ht 165.1 cm; Wt 67.2 kg
[~2024-06-22 10:45] MED LIST changes: +ALBUTEROL SULFATE 2.5MG/0.5ML INH CONCENTRATE NEB SOLN INH PRN; -ALBUTEROL SULFATE 2.5MG/0.5ML INH NEB SOLN INH PRN; -IMMUNE GLOBULIN 10% 10 GM in IV 1 EA IV ONE; -IMMUNE GLOBULIN 10% 20 GM in IV 1 EA IV ONE; -IMMUNE GLOBULIN 10% 5 GM in IV 1 EA IV ONE; -NS (Normal Saline) 0.9% 1,000 ML IV SCH
[2024-06-22 10:55] VITALS: BP 157/74; O2SAT 95
[2024-06-22] MEDS: IMMUNE GLOBULIN 10% 5 GM in IV 1 EA IV ONE (11:21)
[2024-06-22] MEDS: IMMUNE GLOBULIN 10% 20 GM in IV 1 EA IV ONE (11:21)
[2024-06-22] MEDS: IMMUNE GLOBULIN 10% 10 GM in IV 1 EA IV ONE (11:22)
[2024-06-22 12:00] VITALS: BP 142/62; O2SAT 95
[2024-06-22 12:30] VITALS: BP 149/79; O2SAT 96
[2024-06-22 13:00] VITALS: BP 159/84; O2SAT 97
[2024-06-22 14:00] VITALS: BP 159/84; O2SAT 98
[2024-06-22 14:45] VITALS: BP 148/80; O2SAT 97
== END 2024-06-22 15:00 | disposition home or self-care (01) ==
LOC: M INFU 10:45
PROVIDERS: ATTEND Internal Medicine
DX: G35 Multiple sclerosis (principal); Z88.0 Allergy status to penicillin; Z88.1 Allergy status to other antibiotic agents; Z88.2 Allergy status to sulfonamides
CPT/HCPCS: 96365; 96366; J1459

== ENCOUNTER → 2024-07-05 | Outpatient (REF) | payer MEDICARE ==
[~2024-07-05] MED LIST changes: -ALBUTEROL SULFATE 2.5MG/0.5ML INH CONCENTRATE NEB SOLN INH PRN; -EPINEPHrine INJ 1 MG/ML 1ML AMP IM PRN; -diphenhydrAMINE 50MG/ML VIAL IV PRN; -methylPREDNISolone 125MG 2ML VIAL IV PRN
[2024-07-05 08:24] LABS: HEMOGLOBIN A1c 7.5 % (4.0-6.0)
== END ==
LOC: SKLAB5 07:00
PROVIDERS: ATTEND Internal Medicine
DX: E11.9 Type 2 diabetes mellitus without complications (principal)

== ENCOUNTER 2024-07-23 10:45 | Outpatient (CLI) | payer MEDICARE ==
[~2024-07-23] VITALS: Ht 165.1 cm; Wt 67.2 kg
[2024-07-23 10:45] VITALS: BP 180/80; O2SAT 97
[~2024-07-23 10:45] MED LIST changes: +ALBUTEROL SULFATE 2.5MG/0.5ML INH CONCENTRATE NEB SOLN INH PRN; +EPINEPHrine INJ 1 MG/ML 1ML AMP IM PRN; +diphenhydrAMINE 50MG/ML VIAL IV PRN; +methylPREDNISolone 125MG 2ML VIAL IV PRN
[2024-07-23] MEDS ORDERED: NS (Normal Saline) 0.9% 1,000 ML IV SCH (11:00)
[2024-07-23] MEDS: IMMUNE GLOBULIN 10% 20 GM in IV 1 EA IV ONE (11:30)
[2024-07-23] MEDS: IMMUNE GLOBULIN 10% 5 GM in IV 1 EA IV ONE (11:30)
[2024-07-23] MEDS: IMMUNE GLOBULIN 10% 10 GM in IV 1 EA IV ONE (11:30)
[2024-07-23 12:58] VITALS: BP 172/80; O2SAT 99
[2024-07-23 14:40] VITALS: BP 169/70; O2SAT 99
== END 2024-07-23 14:40 | disposition home or self-care (01) ==
LOC: M INFU 10:45
PROVIDERS: ATTEND Internal Medicine
DX: G35 Multiple sclerosis (principal); Z88.0 Allergy status to penicillin; Z88.1 Allergy status to other antibiotic agents; Z88.2 Allergy status to sulfonamides
CPT/HCPCS: 96365; 96366; J1459

== ENCOUNTER 2024-09-16 02:59 | Emergency (ER) | payer MEDICARE ==
[~2024-09-16] VITALS: Ht 170.2 cm; Wt 71.8 kg
[2024-09-16] VITALS (8 sets, daily range): BP systolic 106–175; BP diastolic 52–78; TEMP 96.9–100.1; O2SAT 98–100
[~2024-09-16 02:59] MED LIST changes: -ALBUTEROL SULFATE 2.5MG/0.5ML INH CONCENTRATE NEB SOLN INH PRN; -EPINEPHrine INJ 1 MG/ML 1ML AMP IM PRN; -diphenhydrAMINE 50MG/ML VIAL IV PRN; -methylPREDNISolone 125MG 2ML VIAL IV PRN
[2024-09-16] MEDS: NS 0.9% IV ONE (04:21)
[2024-09-16] MEDS: [UNRECOGNIZED DRUG - OTHER] IV ONE (04:21)
[2024-09-16 04:30] LABS: VENOUS BASE EXCESS 1.3 (-2.0-2.0); VENOUS HCO3 28.3 MMOL/L (23.0-27.0); VENOUS O2 SATURATION 97.3 % (60.0-80.0); VENOUS PARTIAL PRESSURE CO2 57.7 mmHg (38.0-50.0); VENOUS PARTIAL PRESSURE O2 112.9 mmHg (30.0-50.0); VENOUS PH 7.308 UNITS (7.330-7.430); VENOUS STANDARD HCO3 25.6 MMOL/L; VENOUS TOTAL CO2 30.0 MMOL/L (24.0-28.0)
[2024-09-16 04:32] LABS: BASO # 0.0 10^3/uL (0.0-0.2); BASO % 0.1 % (0.0-1.0); EOS # 0.0 10^3/uL (0.0-0.5); EOS % 0.2 % (0.0-3.0); LYMPH # 0.8 10^3/uL (1.5-5.0); LYMPH % 8.1 % (24.0-44.0); MONO # 0.7 10^3/uL (0.0-0.8); MONO % 7.3 % (2.0-8.0); NEUTROPHILS # 8.0 10^3/uL (1.5-8.5); NEUTROPHILS % 83.3 % (36.0-66.0); PLATELET COUNT, AUTOMATED 166 10^3/uL (150-450)
[2024-09-16 04:53] LABS: INR 1.06
[2024-09-16 05:00] LABS: CK-MB VALUE MASS 1.6 NG/ML (<3.6)
[2024-09-16] MEDS ORDERED: NOREPINEPHRINE 4MG IN D5 250ML 4 MG in IV 1 EA IV SCH (05:00)
[2024-09-16 05:02] LABS: CPK CREATINE PHOSPHOKINASE 30 U/L (34-145); MB/CK RELATIVE INDEX 5.33 (< OR =4)
[2024-09-16 05:07] LABS: ALT/SGPT 165 U/L (7.0-40); AST/SGOT 265 U/L (<34); CALCIUM LEVEL 6.9 MG/DL (8.3-10.6); CARBON DIOXIDE LEVEL 29 MMOL/L (20-31); CHLORIDE LEVEL 103 MMOL/L (98-107); CREATININE FOR GFR 0.39 MG/DL (0.55-1.30); GLOMERULAR FILTRATION RATE > 90.0 (>39); POTASSIUM SERUM 3.6 MMOL/L (3.5-5.1); SODIUM LEVEL 144 MMOL/L (136-145)
[2024-09-16 05:26] LABS: KETONE, URINE AUTO RFX TRACE mg/dL (NEGATIVE); NITRITE, URINE AUTO RFX NEGATIVE (NEGATIVE); RBC, URINE AUTO RFX 48 /HPF (0-3); SQUAM EPITHELIAL CELL UR AURFX 26 /HPF (0-6)
[2024-09-16 05:31] LABS: LEUKOCYTE ESTERASE UR AUTO RFX 1+ (NEGATIVE); WBC, URINE AUTO RFX TNTC /HPF (0-3)
[2024-09-16 05:34] LABS: C REACTIVE PROTEIN QUANTITATIV 6.96 MG/DL (<1.0)
[2024-09-16] MEDS ORDERED: ISOVUE-370 76% 100 ML VIAL As Ordered ONE (06:13)
[2024-09-16] MEDS: LevoFLOXacin IV 750 MG in IV 1 EA IV ONE (06:14)
[2024-09-16 07:28] LABS: CK-MB VALUE MASS 1.3 NG/ML (<3.6)
[2024-09-16 07:29] LABS: CPK CREATINE PHOSPHOKINASE < 15 U/L (34-145); MB/CK RELATIVE INDEX 0.00 (< OR =4)
[2024-09-16] MEDS ORDERED: ONDANSETRON 4MG TAB PO ONE (08:25)
[2024-09-16] MEDS: ONDANSETRON 4MG 2ML VIAL IV ONE (08:49)
[2024-09-16 10:02] LABS: ALT/SGPT 185.0 U/L (7.0-40); AST/SGOT 256.0 U/L (<34); CK-MB VALUE MASS 3.3 NG/ML (<3.6); CPK CREATINE PHOSPHOKINASE 36.0 U/L (34-145); MB/CK RELATIVE INDEX 9.16 (< OR =4)
[2024-09-16 14:49] LABS: BASO # 0.0 10^3/uL (0.0-0.2); BASO % 0.2 % (0.0-1.0); EOS # 0.0 10^3/uL (0.0-0.5); EOS % 0.1 % (0.0-3.0); LYMPH # 1.5 10^3/uL (1.5-5.0); LYMPH % 12.1 % (24.0-44.0); MONO # 0.7 10^3/uL (0.0-0.8); MONO % 6.0 % (2.0-8.0); NEUTROPHILS # 10.0 10^3/uL (1.5-8.5); NEUTROPHILS % 81.1 % (36.0-66.0); PLATELET COUNT, AUTOMATED 222 10^3/uL (150-450)
[2024-09-16] MEDS ORDERED: ONDA-83 PO (15:23)
[2024-09-16] MEDS ORDERED: ATOR1TAB21 PO (15:23)
[2024-09-16] MEDS ORDERED: MORP30TASA PO (15:23)
[2024-09-16] MEDS ORDERED: METF-839 PO (15:23)
[2024-09-16] MEDS ORDERED: HOME MED LIST COMPLETE! XX SCH (15:25)
[2024-09-16] MEDS ORDERED: metroNIDAZOLE 500 MG in IV 1 EA IV ONE (16:30)
[2024-09-16] MEDS: NS (Normal Saline) 0.9% 1,000 ML IV SCH (16:51)
[2024-09-16] MEDS: GABAPENTIN 300 MG CAP PO SCH (16:54)
[2024-09-16] MEDS: BACLOFEN 10 MG TAB PO SCH (16:54)
[2024-09-16] MEDS: metroNIDAZOLE 500 MG in IV 1 EA IV SCH (18:02)
[2024-09-16] MEDS ORDERED: ACETAMINOPHEN *IV* 1,000 MG in IV 1 EA IV ONE (18:15)
[2024-09-16] MEDS: KETOROLAC 30 MG/ML 1 ML VIAL IV ONE (18:17)
[2024-09-17] MEDS ORDERED: LevoFLOXacin IV 750 MG in IV 1 EA IV SCH (06:00)
[2024-09-17] MEDS ORDERED: FLUTICASONE PROPIONATE 0.05% NASAL SPRAY 16 GM NARES SCH (09:00)
[2024-09-17] MEDS ORDERED: OMEPRAZOLE 20MG CAP PO SCH (09:00)
== END 2024-09-16 18:35 | disposition short-term general hospital (02) ==
LOC: M ED 02:59
DX: A41.9 Sepsis, unspecified organism (principal); K80.50 Calculus of bile duct without cholangitis or cholecystitis without obstruction; N39.0 Urinary tract infection, site not specified; D64.9 Anemia, unspecified; R94.31 Abnormal electrocardiogram [ECG] [EKG]; J44.9 Chronic obstructive pulmonary disease, unspecified; E78.5 Hyperlipidemia, unspecified; E11.9 Type 2 diabetes mellitus without complications; I10 Essential (primary) hypertension; G35 Multiple sclerosis; F32.A Depression, unspecified; Z88.0 Allergy status to penicillin; Z88.2 Allergy status to sulfonamides; Z88.1 Allergy status to other antibiotic agents; Z79.1 Long term (current) use of non-steroidal anti-inflammatories (NSAID); Z79.2 Long term (current) use of antibiotics; Z79.84 Long term (current) use of oral hypoglycemic drugs; Z79.899 Other long term (current) drug therapy
CPT/HCPCS: 36415; 36430; 51701; 70450; 71045; 71260; 74177; 74181; 80048; 80076; 81001; 82550; 82553; 82803; 83605; 83690; 84145; 84484; 85025; 85610; 85730; 86140; 86850; 86900; 86901; 86920; 87040; 87086; 93005; 93041; 94760; 96361; 96374; 96375; 99285; J1836; J1885; J1956; J2405; P9016; Q9967

== ENCOUNTER → 2024-09-24 | Outpatient (CLI) | payer MEDICARE ==
[~2024-09-24] MED LIST changes: +ATOR1TAB21 PO; +METF-839 PO; +ONDA-83 PO
== END ==
LOC: M RAD 12:41
PROVIDERS: ATTEND Nurse Practitioner Family
DX: M81.0 Age-related osteoporosis without current pathological fracture (principal)

== ENCOUNTER → 2024-09-26 | Outpatient (REF) | payer MEDICARE ==
[2024-09-27 00:49] LABS: APPEARANCE, URINE MANUAL CLEAR (CLEAR); COLOR, URINE MANUAL YELLOW (YELLOW); PH,URINE MAN 7.0 UNITS (5.0 - 7.0); SPECIFIC GRAVITY,URINE MANUAL 1.005 (1.002-1.035)
[2024-09-27 00:50] LABS: BILIRUBIN, URINE MANUAL NEGATIVE (NEGATIVE); GLUCOSE, URINE (UA) MANUAL NEGATIVE (NEGATIVE); KETONE, URINE MANUAL NEGATIVE (NEGATIVE); LEUKOCYTE ESTERASE, URINE MAN POSITIVE (NEGATIVE); NITRITE, URINE MANUAL POSITIVE (NEGATIVE); PROTEIN, URINE MANUAL TRACE mg/dL (NEGATIVE); UROBILINOGEN, URINE MANUAL NORMAL (NORMAL)
[2024-09-27 00:51] LABS: BLOOD URINE MANUAL TRACE (NEGATIVE)
[2024-09-27 00:58] LABS: BACTERIA, URINE MOD AMOUNT; HYALINE CAST, URINE 0-1 /lpf (0-1); RBC, URINE 0-1 /hpf (0-3); SQUAMOUS EPITHELIAL CELL URINE SMALL AMOUNT /hpf (SMALL AMT)
[2024-09-27 00:59] LABS: MUCUS, URINE SMALL AMOUNT (NEGATIVE)
== END ==
LOC: SKLAB5 22:45
PROVIDERS: ATTEND Internal Medicine
DX: R41.82 Altered mental status, unspecified (principal)

== ENCOUNTER → 2024-09-27 | Outpatient (REF) | payer MEDICARE ==
[2024-09-27 10:28] LABS: PLATELET COUNT, AUTOMATED 352 10^3/uL (150-450)
[2024-09-27 11:00] LABS: CALCIUM LEVEL 8.8 MG/DL (8.3-10.6); CARBON DIOXIDE LEVEL 37 MMOL/L (20-31); CHLORIDE LEVEL 93 MMOL/L (98-107); CREATININE FOR GFR 0.23 MG/DL (0.55-1.30); GLOMERULAR FILTRATION RATE > 90.0 (>39); POTASSIUM SERUM 4.4 MMOL/L (3.5-5.1); SODIUM LEVEL 140 MMOL/L (136-145)
[2024-09-27 11:06] LABS: ESTIMATED AVERAGE GLUCOSE 151.0 MG/DL (60-110)
== END ==
LOC: SKLAB5 07:15
PROVIDERS: ATTEND Internal Medicine
DX: R41.82 Altered mental status, unspecified (principal); Z79.899 Other long term (current) drug therapy

== ENCOUNTER 2024-10-11 09:52 | Outpatient (CLI) | payer MEDICARE, MEDICAID ==
[~2024-10-11] VITALS: Ht 170.2 cm; Wt 68.0 kg
[~2024-10-11 09:52] MED LIST changes: +ALBUTEROL SULFATE 2.5 MG/0.5 ML INH CONCENTRATE NEB SOLN INH PRN; +EPINEPHrine INJ 1 MG/ML 1ML AMP IM PRN; +diphenhydrAMINE 50 MG/ML VIAL IV PRN
[2024-10-11 10:00] VITALS: BP 162/90; O2SAT 91
[2024-10-11] MEDS ORDERED: NS (Normal Saline) 0.9% 1,000 ML IV SCH (10:00)
[2024-10-11] MEDS: IMMUNE GLOBULIN 10% 5 GM in IV 1 EA IV ONE (10:19)
[2024-10-11] MEDS: IMMUNE GLOBULIN 10% 10 GM in IV 1 EA IV ONE (10:21)
[2024-10-11] MEDS: IMMUNE GLOBULIN 10% 20 GM in IV 1 EA IV ONE (10:22)
[2024-10-11 11:20] VITALS: BP 158/88; O2SAT 94
[2024-10-11 11:50] VITALS: BP 150/80; O2SAT 100
[2024-10-11 13:45] VITALS: BP 144/76; O2SAT 99
== END 2024-10-11 13:45 | disposition home or self-care (01) ==
LOC: M INFU 09:52
PROVIDERS: ATTEND Internal Medicine
DX: G35 Multiple sclerosis (principal); Z88.0 Allergy status to penicillin; Z88.1 Allergy status to other antibiotic agents; Z88.2 Allergy status to sulfonamides
CPT/HCPCS: 96365; 96366; J1459

== ENCOUNTER 2024-11-09 09:47 | Outpatient (CLI) | payer MEDICARE ==
[~2024-11-09 09:47] MED LIST changes: +NS (Normal Saline) 0.9% 1,000 ML IV SCH
[2024-11-09 09:55] VITALS: BP 172/90; O2SAT 95
[2024-11-09] MEDS: IMMUNE GLOBULIN 10% 20 GM in IV 1 EA IV ONE (10:51)
[2024-11-09] MEDS: IMMUNE GLOBULIN 10% 10 GM in IV 1 EA IV ONE (10:51)
[2024-11-09] MEDS: IMMUNE GLOBULIN 10% 5 GM in IV 1 EA IV ONE (10:52)
[2024-11-09 11:30] VITALS: BP 168/88; O2SAT 96
[2024-11-09 12:00] VITALS: BP 176/80; O2SAT 96
[2024-11-09 12:30] VITALS: BP 186/90; O2SAT 99
[2024-11-09 13:30] VITALS: BP 182/88; O2SAT 98
== END 2024-11-09 15:15 ==
LOC: M INFU 09:47
PROVIDERS: ATTEND Internal Medicine
DX: G35 Multiple sclerosis (principal); Z88.0 Allergy status to penicillin; Z88.1 Allergy status to other antibiotic agents; Z88.2 Allergy status to sulfonamides
CPT/HCPCS: 96365; 96366; J1459

== ENCOUNTER → 2024-11-21 | Outpatient (REF) | payer MEDICARE ==
[~2024-11-21] MED LIST changes: -ALBUTEROL SULFATE 2.5 MG/0.5 ML INH CONCENTRATE NEB SOLN INH PRN; -EPINEPHrine INJ 1 MG/ML 1ML AMP IM PRN; -NS (Normal Saline) 0.9% 1,000 ML IV SCH; -diphenhydrAMINE 50 MG/ML VIAL IV PRN
[2024-11-21 11:31] LABS: BASO # 0.0 10^3/uL (0.0-0.2); BASO % 0.5 % (0.0-1.0); EOS # 0.4 10^3/uL (0.0-0.5); EOS % 7.3 % (0.0-3.0); LYMPH # 2.1 10^3/uL (1.5-5.0); LYMPH % 38.8 % (24.0-44.0); MONO # 0.6 10^3/uL (0.0-0.8); MONO % 10.0 % (2.0-8.0); NEUTROPHILS # 2.4 10^3/uL (1.5-8.5); NEUTROPHILS % 43.0 % (36.0-66.0); PLATELET COUNT, AUTOMATED 204 10^3/uL (150-450)
[2024-11-21 11:59] LABS: ALT/SGPT 9 U/L (7.0-40); AST/SGOT 14 U/L (<34); CALCIUM LEVEL 8.8 MG/DL (8.3-10.6); CARBON DIOXIDE LEVEL 36 MMOL/L (20-31); CHLORIDE LEVEL 102 MMOL/L (98-107); CREATININE FOR GFR 0.34 MG/DL (0.55-1.30); GLOMERULAR FILTRATION RATE > 90.0 (>39); POTASSIUM SERUM 4.2 MMOL/L (3.5-5.1); SODIUM LEVEL 141 MMOL/L (136-145)
== END ==
LOC: SKLAB5 08:10
PROVIDERS: ATTEND Internal Medicine
DX: R41.82 Altered mental status, unspecified (principal)

== ENCOUNTER → 2024-11-27 | Outpatient (REF) | payer MEDICARE ==
[2024-11-27 11:42] LABS: PLATELET COUNT, AUTOMATED 229 10^3/uL (150-450)
[2024-11-27 12:20] LABS: CALCIUM LEVEL 8.3 MG/DL (8.3-10.6); CARBON DIOXIDE LEVEL 32 MMOL/L (20-31); CHLORIDE LEVEL 100 MMOL/L (98-107); CHOLESTEROL LEVEL 151 MG/DL (<200); CHOLESTEROL RISK RATIO 4.54 (<5); CREATININE FOR GFR 0.22 MG/DL (0.55-1.30); GLOMERULAR FILTRATION RATE > 90.0 (>39); LDL CHOLESTEROL 58.2 MG/DL (<100); NON-HDL-C 117.8 MG/DL; POTASSIUM SERUM 4.6 MMOL/L (3.5-5.1); SODIUM LEVEL 140 MMOL/L (136-145); TRIGLYCERIDES LEVEL 298 MG/DL (<150)
== END ==
LOC: SKLAB5 07:00
PROVIDERS: ATTEND Internal Medicine
DX: G35 Multiple sclerosis (principal); D64.9 Anemia, unspecified; E03.9 Hypothyroidism, unspecified; E78.00 Pure hypercholesterolemia, unspecified

== ENCOUNTER 2024-12-10 11:24 | Outpatient (CLI) | payer MEDICARE ==
[~2024-12-10 11:24] MED LIST changes: +ALBUTEROL SULFATE 2.5 MG/0.5 ML INH CONCENTRATE NEB SOLN INH PRN; +EPINEPHrine INJ 1 MG/ML 1ML AMP IM PRN; +NS (Normal Saline) 0.9% 1,000 ML IV SCH; +diphenhydrAMINE 50 MG/ML VIAL IV PRN
[2024-12-10 11:25] VITALS: BP 160/70; O2SAT 98
[2024-12-10] MEDS: IMMUNE GLOBULIN 10% 20 GM in IV 1 EA IV ONE (12:04)
[2024-12-10] MEDS: IMMUNE GLOBULIN 10% 5 GM in IV 1 EA IV ONE (12:05)
[2024-12-10] MEDS: IMMUNE GLOBULIN 10% 10 GM in IV 1 EA IV ONE (12:06)
[2024-12-10 12:40] VITALS: BP 158/72; O2SAT 98
[2024-12-10 13:10] VITALS: BP 164/80; O2SAT 97
[2024-12-10 13:40] VITALS: BP 162/82; O2SAT 96
[2024-12-10 15:25] VITALS: BP 144/86; O2SAT 98
== END 2024-12-10 15:30 | disposition home or self-care (01) ==
LOC: M INFU 11:24
PROVIDERS: ATTEND Internal Medicine
DX: G35.D Multiple sclerosis, unspecified (principal); Z88.0 Allergy status to penicillin; Z88.1 Allergy status to other antibiotic agents; Z88.2 Allergy status to sulfonamides
CPT/HCPCS: 96365; 96366; J1459

== ENCOUNTER → 2025-01-01 | Outpatient (CLI) | payer MEDICARE ==
[~2025-01-01] MED LIST changes: -ALBUTEROL SULFATE 2.5 MG/0.5 ML INH CONCENTRATE NEB SOLN INH PRN; -EPINEPHrine INJ 1 MG/ML 1ML AMP IM PRN; -NS (Normal Saline) 0.9% 1,000 ML IV SCH; -diphenhydrAMINE 50 MG/ML VIAL IV PRN
== END ==
LOC: M WHC 13:18
PROVIDERS: ATTEND Nurse Practitioner
DX: Z12.31 Encounter for screening mammogram for malignant neoplasm of breast (principal); G35.D Multiple sclerosis, unspecified

== ENCOUNTER → 2025-01-03 | Outpatient (REF) | payer MEDICARE ==
[2025-01-03 09:45] LABS: ESTIMATED AVERAGE GLUCOSE 128.0 MG/DL (60-110)
== END ==
LOC: SKLAB5 07:00
PROVIDERS: ATTEND Internal Medicine
DX: E11.9 Type 2 diabetes mellitus without complications (principal)

== ENCOUNTER 2025-01-10 10:27 | Outpatient (CLI) | payer MEDICARE ==
[~2025-01-10 10:27] MED LIST changes: +ALBUTEROL SULFATE 2.5 MG/0.5 ML INH CONCENTRATE NEB SOLN INH PRN; +EPINEPHrine INJ 1 MG/ML 1ML AMP IM PRN; +NS (Normal Saline) 0.9% 1,000 ML IV SCH; +diphenhydrAMINE 50 MG/ML VIAL IV PRN
[2025-01-10 10:45] VITALS: BP 168/88; O2SAT 98
[2025-01-10] MEDS: IMMUNE GLOBULIN 10% 5 GM in IV 1 EA IV ONE (11:04)
[2025-01-10] MEDS: IMMUNE GLOBULIN 10% 10 GM in IV 1 EA IV ONE (11:05)
[2025-01-10] MEDS: IMMUNE GLOBULIN 10% 20 GM in IV 1 EA IV ONE (11:06)
[2025-01-10 11:15] VITALS: BP 172/90; O2SAT 98
[2025-01-10 11:45] VITALS: BP 166/84; O2SAT 97
[2025-01-10 12:15] VITALS: BP 150/88; O2SAT 97
[2025-01-10 13:50] VITALS: BP 188/92; O2SAT 98
[2025-01-10 14:38] VITALS: BP 175/89; O2SAT 96
== END 2025-01-10 14:42 | disposition home or self-care (01) ==
LOC: M INFU 10:27
PROVIDERS: ATTEND Internal Medicine
DX: G35.D Multiple sclerosis, unspecified (principal); Z88.0 Allergy status to penicillin; Z88.1 Allergy status to other antibiotic agents; Z88.2 Allergy status to sulfonamides
CPT/HCPCS: 96365; 96366; J1459

== ENCOUNTER 2025-02-11 11:38 | Outpatient (CLI) | payer MEDICARE ==
[~2025-02-11] VITALS: Ht 170.2 cm; Wt 67.3 kg
[~2025-02-11 11:38] MED LIST changes: -DOCU8.6T PO; +SENN-208 PO
[2025-02-11 12:00] VITALS: BP 158/80; O2SAT 99
[2025-02-11] MEDS: IMMUNE GLOBULIN 10% 20 GM in IV 1 EA IV ONE (12:54)
[2025-02-11] MEDS: IMMUNE GLOBULIN 10% 10 GM in IV 1 EA IV ONE (13:05)
[2025-02-11] MEDS: IMMUNE GLOBULIN 10% 5 GM in IV 1 EA IV ONE (13:06)
[2025-02-11 14:15] VITALS: BP 168/80; O2SAT 97
[2025-02-11 14:45] VITALS: BP 170/84; O2SAT 97
[2025-02-11 15:15] VITALS: BP 166/78; O2SAT 98
[2025-02-11 16:50] VITALS: BP 150/70; O2SAT 100
== END 2025-02-11 16:50 | disposition home or self-care (01) ==
LOC: M INFU 11:38
PROVIDERS: ATTEND Internal Medicine
DX: G35.D Multiple sclerosis, unspecified (principal); Z88.0 Allergy status to penicillin; Z88.1 Allergy status to other antibiotic agents; Z88.2 Allergy status to sulfonamides
CPT/HCPCS: 96365; 96366; J1459